=== PATIENT | female | born 1965 | race Caucasian/White ===

== ENCOUNTER 2020-06-28 13:16 | Outpatient (REF) | payer MEDICARE, SELFPAY ==
--- NOTE | 2020-06-28 | MM_ITS ---
EXAMINATION: MM SCREENING DIGITAL BREAST TOMOSYNTHESIS, BILATERAL CLINICAL INFORMATION: Screening. Asymptomatic. The lifetime risk of breast cancer based on the Tyrer-Cuzick Model is 15%. COMPARISON: Mammography: 10/21/2016, 02/21/2014 TECHNIQUE: Digital breast tomosynthesis is performed in both the craniocaudal and mediolateral oblique views along with computer-aided detection (CAD). Synthesized 2D images are generated from the tomosynthesis. FINDINGS: There are scattered areas of fibroglandular density (ACR BI-RADS breast composition Category b). Parenchymal pattern is similar to prior exams. There is no developing density or interval mass or architectural abnormality. Again, there is a biopsy clip marker 3:00 left breast and 2 biopsy clip markers 5:00 anterior right breast. There are some fine calcifications anterior 6:00 right breast again seen. The axilla and skin contours are unremarkable. There are no significant changes from prior studies. MM/MM tomosynthesis screening BI IMPRESSION: No significant changes from prior studies. ASSESSMENT: BI-RADS 2: Benign RECOMMENDATION: Routine annual mammography screening. This patient's information was entered into a reminder system with a target due date for their next mammogram.
== END 2020-06-28 13:17 | disposition home or self-care (01) ==
LOC: HO.MAMMO 13:16
PROVIDERS: Visit Provider Pediatrics
DX: Z12.31 Encounter for screening mammogram for malignant neoplasm of breast (principal)
CPT/HCPCS: 77063; 77067

== ENCOUNTER → 2020-12-03 12:45 | Outpatient (BNVA) | payer MEDICARE, OTHER, SELFPAY | PROVIDERS: PCP Pediatrics; Referring Provider Pediatrics; Visit Provider Surgery | DX: K43.2 Incisional hernia without obstruction or gangrene (principal) | CPT/HCPCS: 99202 ==

== ENCOUNTER 2020-12-25 05:56 | Day surgery (SDC) | payer MEDICARE, OTHER, SELFPAY ==
[2020-12-19 15:34] VITALS: BMI 35.2
--- NOTE | 2020-12-24 08:25 | HO.ANESPROP2 ---
Documented by User: Jeannette Mae 12/24/20 13:16 HPI - Anesthesia Eval Consult details Narrative: 55yo F for Incisional Hernia Repair, Poss Mesh Daily tramadol PMFSH Active Problems Active Problems: All Active Problems (Updated 12/03/20 @ 13:22 by Renaldo Weinberg MD) Incisional hernia (Acute) Past Medical History Medical History (Updated 12/24/20 @ 13:16 by Jeannette Mae) Heart burn HTN (hypertension) Incisional hernia Lumbar spondylolysis Raynaud disease Family History Family History Mother Lung cancer Maternal Aunt Breast cancer Maternal Uncle Breast cancer Maternal Grandfather Pancreatic cancer Surgical History Surgical History History of surgery for malignant neoplasm Social History Social History Alcohol intake: current Alcohol intake frequency: holidays/special occasions only Patient Tobacco Use Status: Never used Tobacco Use of substances other than those prescribed or required for medical reasons: No Are you DNR?: No Advance Directives: No Advance Directives Information Provided: No Recently lost weight without trying: No Nutrition Risks: No Nutritional Risk Patient : No FDLMP: 2 years ago Meds Allergies Allergy/AdvReac Type Severity Reaction Status Date / Time No Known Allergies Allergy Verified 12/03/20 12:56 Home Medications Medication Instructions Recorded Confirmed Last Taken Type amitriptyline 75 mg tablet 75 mg PO DAILY 12/03/20 12/03/20 Unknown History baclofen 10 mg tablet 10 mg PO TID 12/03/20 12/03/20 Unknown History cholecalciferol (vitamin D3) 50 50 mcg PO BID 12/03/20 12/03/20 Unknown History mcg (2,000 unit) capsule duloxetine 60 mg capsule,delayed 60 mg PO BID 12/03/20 12/03/20 Unknown History release hydroxychloroquine 200 mg tablet 200 mg PO DAILY 12/03/20 12/03/20 Unknown History ibuprofen 800 mg tablet 800 mg PO Q8H PRN 12/03/20 12/03/20 Unknown History lisinopril 20 1 tab PO DAILY 12/03/20 12/03/20 Unknown History mg-hydrochlorothiazide 25 mg tablet meloxicam 7.5 mg tablet 7.5 mg PO DAILY 12/03/20 12/03/20 Unknown History pregabalin 50 mg capsule 50 mg PO BID 12/03/20 12/03/20 Unknown History tramadol 50 mg tablet 50 mg PO Q6H PRN 12/03/20 12/03/20 Unknown History Exam Exam Date and Time: December 24, 2020 0825 Height,Weight and Vital Signs: Height 5 ft 3 in Weight 90.265 kg Assessment and Plan Assessment Anesthesia Assessment: Chart Reviewed Documented by User: He Faulkner MD 12/25/20 07:26 [facility] Past Medical History Medical History (Updated 12/24/20 @ 13:16 by Jeannette Mae) Heart burn HTN (hypertension) Incisional hernia Lumbar spondylolysis Raynaud disease Family History Family History Mother Lung cancer Maternal Aunt Breast cancer Maternal Uncle Breast cancer Maternal Grandfather Pancreatic cancer Surgical History Surgical History History of surgery for malignant neoplasm Social History Social History Alcohol intake: current Alcohol intake frequency: holidays/special occasions only Patient Tobacco Use Status: Never used Tobacco Use of substances other than those prescribed or required for medical reasons: No Are you DNR?: No Advance Directives: No Advance Directives Information Provided: No Recently lost weight without trying: No Nutrition Risks: No Nutritional Risk Patient : No FDLMP: 2 years ago Meds Allergies Allergy/AdvReac Type Severity Reaction Status Date / Time No Known Allergies Allergy Verified 12/03/20 12:56 Home Medications Medication Instructions Recorded Confirmed Last Taken Type amitriptyline 75 mg tablet 75 mg PO DAILY 12/03/20 12/03/20 Unknown History baclofen 10 mg tablet 10 mg PO TID 12/03/20 12/03/20 Unknown History cholecalciferol (vitamin D3) 50 50 mcg PO BID 12/03/20 12/03/20 Unknown History mcg (2,000 unit) capsule duloxetine 60 mg capsule,delayed 60 mg PO BID 12/03/20 12/03/20 Unknown History release hydroxychloroquine 200 mg tablet 200 mg PO DAILY 12/03/20 12/03/20 Unknown History ibuprofen 800 mg tablet 800 mg PO Q8H PRN 12/03/20 12/03/20 Unknown History lisinopril 20 1 tab PO DAILY 12/03/20 12/03/20 Unknown History mg-hydrochlorothiazide 25 mg tablet meloxicam 7.5 mg tablet 7.5 mg PO DAILY 12/03/20 12/03/20 Unknown History pregabalin 50 mg capsule 50 mg PO BID 12/03/20 12/03/20 Unknown History tramadol 50 mg tablet 50 mg PO Q6H PRN 12/03/20 12/03/20 Unknown History Exam Airway Mallampati Class: III TM Dist: >3cm Neck ROM: Full Loose/Missing/Broken Teeth: No Heart: RRR Assessment and Plan Assessment Anesthesia Assessment: Anesthesia Plan Discussed and Chart Reviewed Final Anesthetic Review NPO: Yes ASA Class: III Final Preanesthetic Review: No Changes in Pt Med Stat, Meds/Allgs Chart Reviewed, Consent Obtained/Reviewed and Anes Risks/Benef Reviewed Patient Risk: Intermediate Procedure Risk: Low Anesthetic Plan Anesthetic Plan: GA Disposition: Standard PACU
[2020-12-25] VITALS (11 sets, daily range): BP systolic 110–137; BP diastolic 47–80; PULSE 80–91; RESP 14–16; TEMP 36.1–36.6; O2SAT 96–100; BMI 35.7
[2020-12-25] MEDS: Lactated Ringers 1,000 ML 100 ML IVCONT (06:32)
--- NOTE | 2020-12-25 07:18 | MHC.SHP ---
Pre-Procedural Eval Section B Chief Complaint: incisional hernia without obstruction Allergies: Allergies Allergy/AdvReac Type Severity Reaction Status Date / Time No Known Allergies Allergy Verified 12/03/20 12:56 Plan I have reviewed the history and physical and performed a pertinent physical examination on my patient. No changes have occurred unless specified.
--- NOTE | 2020-12-25 08:17 | W.PM.OPN ---
Operative Note Operative Note Date of Service: 12/25/20 Narrative: Preop diagnosis: Incisional hernia Postop diagnosis: Incisional hernia Procedure: Repair of incisional hernia with Ventralex mesh Surgeon: Renaldo Weinberg MD No assistant center manager Patient is a 55-year-old female who has noticed a partially reducible mass on the area just above the umbilicus. She had undergone laparoscopic removal of her adrenal gland a year ago. Examination in the office showed appeared to be an incisional hernia on the port side above the umbilicus. This was partially reducible. It was difficult to clearly define the fascial defect because of her subcutaneous fat. In view of symptoms she wanted proceed with repair. She understood technique of repair with mesh. She was aware of the risks, benefits, and alternatives She was brought to the operating room and placed supine on table under general anesthesia via endotracheal tube. The abdomen was prepped and draped in the usual sterile fashion. A surgical time-out was done. The patient received cefazolin 2 g IV preoperatively. I infiltrated the planned line of incision using lidocaine 1%. I made the incision on the old incision above the umbilicus longitudinally using a blade 15. This was carried down through the full-thickness of the skin and subcutaneous fat with electrocautery until I was able to see the hernia sac. The hernia sac reduced easily. I was able to continue to dissect through the subcutaneous fat to define the fascia. I applied Deon clamps on the fascial edges. This allowed me to clearly visualize the fascial margins. There was note of some adherent omental fat on the superior aspect of the defect which we gently lysed using electrocautery. I examined the underside of fascial defect and it appeared we had good margins around the defect itself. We also observed for hemostasis. There were no adherent small bowel loops surrounding the defect. I measured the defect and this was about 3.2 cm in diameter. I therefore used a medium-sized Ventralex mesh. I positioned this under the fascial defect and flattened this. I secured the Prolene straps of the mesh to the fascial edge on both sides using Prolene 2 sutures. I trimmed both Prolene straps. I then closed the fascial defect with a running Maxon 1 stitch, incorporating part of the Prolene side of the mesh with the suture. I irrigated the subcutaneous layer. I then reapposed the subcutaneous layer with Dexon 3-0 interrupted sutures. Skin closure was achieved with Dexon 4-0 subcuticular running sutures. Surgeon dressings were applied. I infiltrated the area of the incision with Marcaine 0.5% for postop analgesia. The patient tolerated the procedure well. There were no complication noted. Initial and final counts of sponges and instruments were correct. Estimated blood loss was about 5 cc The patient is extubated without difficulty and transferred to the recovery room with stable vital signs.
--- NOTE | 2020-12-25 08:24 | PM.OP ---
Brief Operative Note Date of Service: 12/25/20 Pre-op diagnosis: Incisional hernia Post-op diagnosis: same Procedure: Repair of incisional hernia with mesh Implants: Mesh Surgeon: Renaldo Weinberg MD Anesthesia: GETA Was an Associate Engineer used for this Procedure?: No Estimated blood loss (mL): 5 Pathology: none sent Condition: stable Disposition: PACU
[2020-12-25] MEDS: fentaNYL citrate/PF 100 MCG/2 ML VIAL 25 MCG IVPUSH ×2 (09:02→09:14)
[2020-12-25] MEDS: oxyCODONE HCl Immed Release 5 MG TABLET 10 MG PO (09:08)
== END 2020-12-25 10:05 | disposition home or self-care (01) ==
PROVIDERS: PCP Pediatrics; Visit Provider Surgery
PROC: (CPT 49560; principal; 2020-12-25 07:30)
DX: K43.2 Incisional hernia without obstruction or gangrene (principal); I73.00 Raynaud's syndrome without gangrene; Z79.899 Other long term (current) drug therapy; Z87.891 Personal history of nicotine dependence
CPT/HCPCS: 49560; 49568; C1781; J0690; J1100; J2250; J2405; J3010

== ENCOUNTER → 2021-01-23 14:59 | Outpatient (BNVA) | payer MEDICARE, OTHER, SELFPAY | PROVIDERS: PCP Pediatrics; Referring Provider Pediatrics; Visit Provider Surgery | DX: Z48.815 Encounter for surgical aftercare following surgery on the digestive system (principal); Z87.19 Personal history of other diseases of the digestive system | CPT/HCPCS: 99212 ==

== ENCOUNTER 2022-05-07 08:24 | Outpatient (REF) | payer MEDICARE, OTHER, SELFPAY ==
--- NOTE | ~2022-05-07 | MM_ITS ---
EXAMINATION: BONE DENSITOMETRY CLINICAL INDICATION: Other risk factors. COMPARISON: This is the patient's baseline examination. TECHNIQUE: Using a [employer] DXA System (software version: 13.1) manufactured by [employer], dual-energy x-ray absorptiometry was performed of the lumbar spine and left hip. The images are of good technical quality. Summary results are attached. FINDINGS: AP SPINE L1-L2 (excluding L3 and L4): The data of L1-L4 has been changed to exclude the L3 and L4 vertebral bodies, because degenerative sclerosis at these levels may cause overestimation of lumbar spine density. BMD 1.143 g/cm2, Z-score 0.0, T-score -0.2, normal. LEFT FEMUR, NECK: BMD 0.919 g/cm2, Z-score -0.2, T-score -0.9, normal. LEFT FEMUR, TOTAL: BMD 0.982 g/cm2, Z-score 0.0, T-score -0.2, normal. IDENTIFIED RISK FACTORS: Rheumatoid arthritis, menopause. HISTORY OF FRACTURE: None listed. MEDICATIONS: Vitamin D. MM/XR DEXA axial skeleton IMPRESSION: 1. DIAGNOSIS: Normal bone density based on the lowest T-score value of -0.9 in the femoral neck applying World Health Organization criteria. 2. 10-YEAR FRACTURE RISK PREDICTION, FRAX: According to the guidelines, FRAX calculation should only be performed on patients in the osteopenia bone density category. Therefore, FRAX was not performed on this patient. 3. Treatment Recommendations: NOF guidelines recommend consideration for treatment in postmenopausal women and men age 50 and older presenting with the following: -A hip or vertebral (clinical or morphometric) fracture. -T-score less than or equal to -2.5 at the femoral neck or spine after appropriate evaluation to exclude secondary causes. -Low bone mass at the hip or spine and a 10-year fracture probability by FRAX of greater than or equal to 3% for hip fracture or greater than or equal to 20% for major osteoporotic fracture based on the [place] adapted WHO algorithm. 4. Other Recommendations: All treatment decisions require clinical judgment and consideration of individual patient factors, including patient preferences, comorbidities, previous drug use, risk factors not captured in the FRAX model (e.g. frailty, falls, vitamin D deficiency, increased bone turnover, interval significant decline in bone density) and possible under or overestimation of fracture risk by FRAX. FUTURE SCAN RECOMMENDATION: People with diagnosed cases of osteoporosis or at high risk for fracture should have regular bone mineral density tests. For patients eligible for Medicare, routine testing is allowed once every 2 years. The testing frequency can be increased to one year for patients who have rapidly progressing disease, those who are receiving or discontinuing medical therapy to restore bone mass, or have additional risk factors.
== END 2022-05-07 08:25 | disposition home or self-care (01) ==
LOC: HO.MAMMO 08:24
PROVIDERS: Visit Provider Pediatrics
DX: Z13.820 Encounter for screening for osteoporosis (principal); Z91.89 Other specified personal risk factors, not elsewhere classified; Z78.0 Asymptomatic menopausal state
CPT/HCPCS: 77080

== ENCOUNTER 2023-05-22 09:39 | Outpatient (REF) | payer MEDICARE, OTHER, SELFPAY ==
[2023-05-22 14:19] LABS: MANUAL DIFF FLAG NO
[2023-05-22 14:32] LABS: Basophils Percent Auto 0.4 % (0-2); Eosinophils Absolute Auto 0.2 X10*3/uL (0.0-0.4); Eosinophils Percent Auto 2.9 % (0-4); Hematocrit 40.8 % (37.0-47.0); Hemoglobin 13.2 g/dl (12.0-16.0); Imm Gran Abs Auto 0.02 X10*3/uL (0.00-0.03); Imm Gran Pct Auto 0.2 % (0.0-0.4); Lymphocytes Absolute Auto 2.4 X10*3/uL (1.2-4.9); Lymphocytes Percent Auto 28.3 % (20-40); Mean Corpuscular HGB Conc 32.4 g/dl (31.0-35.0); Mean Corpuscular Hemoglobin 28.7 pg (27.0-33.0); Mean Corpuscular Volume 88.7 fL (80.0-98.0); Mean Platelet Volume 12.1 fL (9.4-12.3); Monocytes Absolute Auto 0.7 X10*3/uL (0.1-1.2); Monocytes Percent Auto 8.1 % (2-11); Neutrophils Percent Auto 60.1 % (45-73); Platelet Count 270 X10*3/uL (160-400); Red Cell Distribution Width 12.5 % (11.0-16.0); White Blood Count 8.4 X10*3/uL (4.8-10.8)
[2023-05-22 14:38] LABS: INTERNATIONAL NORM RATIO 0.9 (0.9-1.1); Prothrombin Time 10.4 SEC (11.1-13.3)
[2023-05-22 14:44] LABS: Anion Gap 12 (12-20); Blood Urea Nitrogen 17 mg/dL (9-16); Calcium 9.7 mg/dL (8.4-10.2); Carbon Dioxide 27 mmol/L (22-29); Chloride 106 mmol/L (96-108); Estimated Glomerular Filt Rate > 60; Glucose Random 87 mg/dL (60-115); Sodium 141 mmol/L (135-145)
[2023-05-22 14:48] LABS: Partial Thromboplastin Time 32.9 SEC (26.0-36.4)
== END 2023-05-22 09:40 | disposition home or self-care (01) ==
LOC: HO.CHCLDS 09:39
PROVIDERS: Visit Provider Internal Medicine
DX: Z01.818 Encounter for other preprocedural examination (principal); I45.81 Long QT syndrome
CPT/HCPCS: 36415; 80048; 85025; 85610; 85730

== ENCOUNTER 2023-08-20 14:45 | Outpatient (REF) | payer MEDICARE, OTHER, SELFPAY | END 2023-08-20 14:46 | disposition home or self-care (01) | LOC: HO.CHCLNP 14:45 | PROVIDERS: Visit Provider Pediatrics | DX: Z01.419 Encounter for gynecological examination (general) (routine) without abnormal findings (principal) | CPT/HCPCS: 88142 ==

== ENCOUNTER 2023-12-28 16:07 | Outpatient (REF) | payer MEDICARE, OTHER, SELFPAY ==
[2023-12-28 17:32] LABS: MANUAL DIFF FLAG NO
[2023-12-28 17:43] LABS: Appearance Urine Cloudy; Color Urine Yellow; Glucose Urine UA Negative (Negative); Leukocyte Esterase Urine Large (3+) (Negative); Nitrite Urine Negative (Negative); PH 6.5 (5.0-9.0); Specific Gravity - Urine 1.015 (1.005-1.025); UMIC TRIGGER UACC YES; Urine Blood Moderate (2+) (Negative); Urine Ketones Negative (Negative); Urine Protein Negative (Neg-Trace)
[2023-12-28 17:45] LABS: Bacteria Urine 3+ (None Seen); RBC Urine >20 /HPF (0-2); Squamous Epithelial Cell Urine 0-2 /HPF (0-2); UACC Culture Trigger YES; WBC Urine >50 /HPF (0-5)
[2023-12-28 17:51] LABS: Basophils Percent Auto 0.4 % (0-2); Eosinophils Absolute Auto 0.2 X10*3/uL (0.0-0.4); Eosinophils Percent Auto 2.9 % (0-4); Hematocrit 39.3 % (37.0-47.0); Hemoglobin 12.7 g/dl (12.0-16.0); Imm Gran Abs Auto 0.02 X10*3/uL (0.00-0.03); Imm Gran Pct Auto 0.3 % (0.0-0.4); Lymphocytes Absolute Auto 2.2 X10*3/uL (1.2-4.9); Lymphocytes Percent Auto 28.2 % (20-40); Mean Corpuscular HGB Conc 32.3 g/dl (31.0-35.0); Mean Corpuscular Hemoglobin 28.5 pg (27.0-33.0); Mean Corpuscular Volume 88.3 fL (80.0-98.0); Mean Platelet Volume 11.5 fL (9.4-12.3); Monocytes Absolute Auto 0.7 X10*3/uL (0.1-1.2); Monocytes Percent Auto 8.5 % (2-11); Neutrophils Absolute Auto 4.7 x10*3/uL (2.0-8.3); Neutrophils Percent Auto 59.7 % (45-73); Platelet Count 257 X10*3/uL (160-400); Red Blood Count 4.45 X10*6/uL (4.20-5.50); White Blood Count 7.8 X10*3/uL (4.8-10.8)
[2023-12-28 18:14] LABS: Anion Gap 13 (12-20); Blood Urea Nitrogen 10 mg/dL (9-16); C Reactive Protein 0.74 mg/dL (< or = 0.50); Carbon Dioxide 29 mmol/L (22-29); Chloride 107 mmol/L (96-108); Estimated Glomerular Filt Rate > 60; Glucose Random 78 mg/dL (60-115); Potassium 3.6 mmol/L (3.3-5.1); Sodium 145 mmol/L (135-145)
[2023-12-28 18:32] LABS: TSH reflex Free T4 1.48 uIU/mL (0.32-4.0)
[2023-12-28 18:41] LABS: Erythrocyte Sedimentation Rate 5 MM/HR (0-20)
== END 2023-12-28 16:08 | disposition home or self-care (01) ==
LOC: HO.CHCLDS 16:07
PROVIDERS: Visit Provider Family Medicine
DX: R30.0 Dysuria (principal); R22.1 Localized swelling, mass and lump, neck; R22.2 Localized swelling, mass and lump, trunk; R53.83 Other fatigue
CPT/HCPCS: 36415; 80048; 81001; 84443; 85025; 85652; 86140; 87086; 87088; 87186

== ENCOUNTER 2024-01-04 09:54 | Outpatient (REF) | payer MEDICARE, OTHER, SELFPAY ==
--- NOTE | ~2024-01-04 | US_ITS ---
EXAMINATION: US SOFT TISSUE HEAD/NECK CLINICAL INFORMATION: 58-year-old female with left anterior neck mass. Question goiter versus thymoma. COMPARISON: None available. TECHNIQUE: Linear transducer grayscale and color Doppler examination of the area indicated by patient, left clavicular area. FINDINGS: Targeted ultrasound images were obtained by the muffler mechanic of the area of concern as indicated by the patient in the left clavicular region and demonstrated no discrete mass or fluid collection. Radiologist was not in attendance. Images were later provided for interpretation. US/US soft tiss head and/or neck IMPRESSION: No discrete mass or fluid collection identified in the area of concern as indicated by the patient in the left clavicular region. Decisions regarding further imaging, treatment or biopsy should be based on the clinical exam, as not all abnormalities are detectable on ultrasound studies.
== END 2024-01-04 09:55 | disposition home or self-care (01) ==
LOC: HO.HMGCX 09:54
PROVIDERS: PCP Pediatrics; Visit Provider Family Medicine
DX: R22.2 Localized swelling, mass and lump, trunk (principal)
CPT/HCPCS: 76536

== ENCOUNTER 2024-01-12 13:45 | Outpatient (REF) | payer MEDICARE, OTHER, SELFPAY ==
--- NOTE | ~2024-01-12 | CT_ITS ---
EXAMINATION: CT SOFT TISSUE NECK WITH CONTRAST CLINICAL INFORMATION: 58-year-old female with left neck swelling anteriorly concerning for thymoma versus other COMPARISON: None available. TECHNIQUE: Following the intravenous administration of 60 mL of Omnipaque 350 intravenous contrast, helical imaging was performed in the axial plane with generation of coronal and sagittal reformatted images. This CT examination was performed using dose optimization techniques as appropriate, variously including the following: *Automated exposure control *Adjustment of mA and/or kV according to patient size (this includes techniques or standardized protocols for targeted exams where dose is matched to indication/reason for exam; i.e. extremities or head) *Use of iterative reconstruction technique DLP: 278 mGy-cm FINDINGS: No suspicious enhancement. No abnormally enlarged neck lymph node or mass. The nasopharynx, oropharynx, hypopharynx, and laryngeal structures are unremarkable. The parotid, submandibular, and thyroid glands are unremarkable. The visualized orbits are unremarkable. The paranasal sinuses and mastoid air cells are clear. The visualized vasculature of the neck are unremarkable. The visualized portions of the brain are unremarkable. No acute osseous abnormality. No lytic or blastic osseous lesions. Multilevel degenerative changes of the visualized spine. Degenerative changes are seen at the bilateral sternoclavicular junctions, worse on the left. The visualized lungs are clear. CT/CT soft tissue neck w IV con IMPRESSION: Unremarkable CT neck soft tissue. No suspicious neck mass. Specifically, no evidence of thymoma as clinically questioned.
[2024-01-12] MEDS: iohexoL 350 MG/ML 75 ML INFUS..BTL 60 ML IV (15:17)
== END 2024-01-12 13:46 | disposition home or self-care (01) ==
LOC: HO.CT 13:45
PROVIDERS: Visit Provider Family Medicine
DX: R22.2 Localized swelling, mass and lump, trunk (principal)
CPT/HCPCS: 70491; Q9967

== ENCOUNTER 2024-11-15 11:39 | Outpatient (REF) | payer MEDICARE, OTHER, SELFPAY ==
--- NOTE | ~2024-11-15 | XR_ITS ---
EXAMINATION: XR HIP, RIGHT CLINICAL INFORMATION: right hip pain COMPARISON: None available. TECHNIQUE: Two views of the right hip. FINDINGS: No acute cortical disruption or malalignment. Mild sclerosis and the articular surface of the right acetabulum. Osteopenia versus osteoporosis. Metallic hardware in the upper sacrum lower lumbar spine no included in the [id number]. Degenerative changes in the symphysis pubis. XR/XR hip RT min 2V IMPRESSION: Mild osteoarthrosis, right hip. Electronically signed by: James Mendes MD 11/15/2024 12:05 PM EDT
--- OUTSIDE RECORDS SUMMARY | 2024-11-15 13:18 | XMS_ITS | Encounter Summary ---
Author Organization [facility] Address [address] [place] [id number] Care Team Providers Care Foundation Engineer Name Role Phone Gaviota Monsivais MD Unavailable [phone] Nuno Ramesh MD Unavailable Unavailable Martita De La O MD Unavailable [phone] Tommy Christianson MD Unavailable July Henley MD Primary Care Provider [phone] Encounter Details Date Type Department Care Team (Late st Contact Info) Description 06/23/2023 Scanned Document [facility] Neurosurgery [address] [phone] Social History Tobacco Use Types Packs/Day Years Used Date Smoking Tobacco: Former Cigarettes 978 2007 Smokeless Tobacco: Never Alcohol Use Standard Drinks/Week Comments Yes 2 (1 standard drink = 0.6 oz pur e alcohol) approx monthly AUDIT-C Answer Date Recorded Q1: How often do you have a drink containing alc ohol? Monthly or less 06/17/2023 Q2: How many drinks containi ng alcohol do you have on a typical day when you are drinking? 1 or 2 06/17/2023 Q3: How often do you have si x or more drinks on one occasion? Never 06/17/2023 PHQ-2 Answer Date Recorded PHQ-2 Total Score 0 06/17/2023 Comments No Sex and Gender Information Value Date Recorded Sex Assigned at Female 01/01/2023 1:21 PM EDT Legal Sex Female 5:52 PM EDT Gender Identity Female 01/01/2023 1:21 PM EDT Sexual Orientation Heterosexual (straight) 01/01 1:21 PM EDT documented as of this encounter Plan of Treatment Not on file documented as of this encounter Visit Diagnoses Not on filedocumented in this encounter Care Teams Foundation Engineer Relationship Specialty Start Date End Date July Henley MD [address] [place] [id number] PCP - General Internal Medicine 03/05/22 Gaviota Monsivais MD Consulting Provider Rheumatology 03/19/17 Nuno Ramesh MD Endocrinology 05/10/18 Martita De La O MD Consulting Provider Internal Medicine 04/04/19 Tommy Christianson MD [address] [place] [address] Physician Neurology 06/13/21 Dr. Aura Henley [address] [place] [address] Primary Care Provider Internal Medicine 01/09/21 documented as of this encounter
--- OUTSIDE RECORDS SUMMARY | 2024-11-15 13:18 | XMS_ITS | Encounter Summary ---
Author Organization [facility] Address [address] [place] [address] Care Team Providers Care Line Patrolman Name Role Phone Abbie Jeffery MD Unavailable [phone] Gaviota Monsivias MD Unavailable [phone] Pcp, No Primary Care Provider UnavailNuno García MD Unavailable Unavailable System, Provider Not In Primary Care Provider Un available Martita De La O MD Unavailable [phone] Tamiko Kent APRN Unavailable [phone] Pcp, No Primary Care Provider UnavailTommy Valladares MD Unavailable July Henley MD Primary Care Provider Reason for Visit * Reason Comments Medication Refill Encounter Details Date Type Department Care Team (Late st Contact Info) Description 03/25/2018 Refill [facility] [place] [address] Tommy Christianson MD [address] [place] [address] Muscle spasms of both lower extremities Social History Tobacco Use Types Packs/Day Years Used Date Smoking Tobacco: Former Comments:Quit about 6 years ago Alcohol Use Standard Drinks/Week Comments Yes 3 (1 standard drink = 0.6 oz pure alcohol) 2 glasses of wine or less weekly Comments No Sex and Gender Information Value Date Recorded Sex Assigned at Female 01/01/2023 1:21 PM EDT Legal Sex Female 5:52 PM EDT Gender Identity Female 01/01/2023 1:21 PM EDT Sexual Orientation Heterosexual (straight) 01/01 1:21 PM EDT documented as of this encounter Plan of Treatment Not on file documented as of this encounter Visit Diagnoses Diagnosis Muscle spasms of both lower extremities documented in this encounter Care Teams Line Patrolman Relationship Specialty Start Date End Date Pcp, No PCP - General General Medicine 11/05/17 11/03/18 System, Provider Not In PCP - General 11/04/18 01/08/21 Tamiko Kent APRN [address] [place] [address] PCP - MSSP Attributed 07/13/19 0 Pcp, No PCP - General General Medicine 06/13/21 03/04/22 July Henley MD [address] [place] [id number] PCP - General Internal Medicine 03/05/22 Abbie Jeffery MD Consulting Provider Physical Medicine and Rehabilitation 12/01/16 04/03/19 Gaviota Monsivais MD Consulting Provider Rheumatology 03/19/17 Nuno Ramesh MD Endocrinology 05/10/18 Martita De La O MD Consulting Provider Internal Medicine 04/04/19 Tommy Christianson MD [address] [place] [address] Physician Neurology 06/13/21 Dr. Aura Henley [address] [place] [address] Primary Care Provider Internal Medicine 01/09/21 documented as of this encounter
--- OUTSIDE RECORDS SUMMARY | 2024-11-15 13:18 | XMS_ITS | Encounter Summary ---
Author Organization [facility] Address [address] [place] [address] Care Team Providers Care Ammonia Box Operator Name Role Phone Abbie Jeffery MD Unavailable Gaviota Monsivais MD Unavailable [phone] Pcp, No Primary Care Provider UnavailNuno García MD Unavailable Unavailable System, Provider Not In Primary Care Provider Un available Martita De La O MD Unavailable [phone] Tamiko Kent APRN Unavailable [phone] Pcp, No Primary Care Provider UnavailTommy Valladares MD Unavailable July Henley MD Primary Care Provider Encounter Details Date Type Department Care Team (Late st Contact Info) Description 11/05/[address] [facility] [place] [address] Emanuel Bowie, JOSE [address] [id number] Social History Tobacco Use Types Packs/Day Years [...] on filedocumented in this encounter Care Teams Ammonia Box Operator Relationship Specialty Start Date End Date Pcp, No PCP - General General Medicine 11/05/17 11/03/18 System, Provider Not In PCP - General 11/04/18 01/08/21 Tamiko Kent APRN [address] [place] [address] PCP - MSSP Attributed 07/13/19 0 Pcp, No PCP - General General Medicine 06/13/21 03/04/22 July Henley MD [address] [place] [address] PCP - General Internal Medicine 03/05/22 Abbie Jeffery MD Consulting Provider Physical Medicine and Rehabilitation 12/01/16 04/03/19 Gaviota Monsivais MD Consulting Provider Rheumatology 03/19/17 Nuno Ramesh MD Endocrinology 05/10/18 Martita De La O MD Consulting Provider Internal Medicine 04/04/19 Tommy Christianson MD [address] [place] [address] Physician Neurology 06/13/21 Dr. Aura Henley [address] [place] [address] Primary Care Provider Internal Medicine 01/09/21 documented as of this encounter
--- OUTSIDE RECORDS SUMMARY | 2024-11-15 13:18 | XMS_ITS | Clinical Summary ---
Author Organization [facility] Address [address] [place] [address] Phone Care Team Providers Care Business Objects Name Role Phone July Henley MD Primary Care Provider [phone] Allergies No known active allergies Medications aluminum chloride (DRYSOL) 20 % external solution as needed. 10/03/19 17 Active cholecalciferol (VITAMIN D-3) 50 mcg (2,000 unit) capsule Take 1 capsule (2,000 Units total) by mouth 2 (two) times a day. 04/28/20 15 Active cyclobenzaprine (FLEXERIL) 10 mg tablet Take 1 tablet (10 mg total) by mouth. 10/27/19 24 Active diclofenac (VOLTAREN) 1 % topical gel Apply 1 g topically 2 times daily as needed. 10/27/19 24 Active ibuprofen (ADVIL,MOTRIN) 800 mg tablet Take 1 tablet (800 mg total) by mouth 2 times daily as needed. 02/05/20 24 Active tacrolimus (PROTOPIC) 0.1 % ointment APPLY TOPICALLY 2 TIMES A DAY NEEDED 02/11/20 22 Active traZODone (DESYREL) 50 mg tablet Take 1 tablet (50 mg total) by mouth. Active DULoxetine (CYMBALTA) [address] capsule Take 1 capsule (60 mg total) by mouth 2 (two) times a day. 60 each 11 09/07/19 25 026 Active lidocaine (LIDODERM) 5 % patch Apply 1 patch topically 1 (one) time each day. 30 patch 3 09/07/19 25 026 Active amLODIPine (Norvasc) 2.5 mg tablet Take 1 tablet (2.5 mg total) by mouth 1 (one) time each day. 30 each 09/07/19 25 026 Active traMADoL (ULTRAM) 50 mg tabletIndications :Other intervertebral disc degeneration, lumbar region without mention of lumbar back pain or lower extremity pain,Other intervertebral disc degeneration, lumbosacral region without mention of lumbar back pain or lower extremity pain Take 1 tablet (50 mg total) by mouth every 6 (six) hours if needed for severe pain. Max Daily Amount: 200 mg 120 tablet 3 11/12/19 25 Active traMADoL (ULTRAM) 50 mg tabletIndications :Other intervertebral disc degeneration, lumbar region without mention of lumbar back pain or lower extremity pain,Other intervertebral disc degeneration, lumbosacral region without mention of lumbar back pain or lower extremity pain Take 1 tablet (50 mg total) by mouth every 6 (six) hours if needed for severe pain. Max Daily Amount: 200 mg 120 tablet 10/04/19 25 025 Discontinued Active Problems Problem Noted Date Diagnosed Date Low back pain with right-sided sciatica 09/13/19 17 Bulge of lumbar disc without myelopathy 04/01/20 16 DDD (degenerative disc disease), lumbosacral 01/2016 Elevated aldolase level 08/13/2015 Muscle pain 08/13/2015 Lumbago 07/03/2015 Paresthesia of both lower extremities 07/03/2015 Irritable bowel syndrome with diarrhea 5 Murmur, cardiac 06/07/2015 Nonintractable migraine 06/07/2015 Encounters Date Type Department Care Team Description 09/07/2024 10:00 AM EST Office Visit Rheumatology - [facility] [address] [place] [address] Gaviota Monsivais MD Dry eyes, bilateral (Primary Dx); Anemia of chronic disease; Fibromyalgia; H/O Raynaud's syndrome; Undifferentiated connective tissue disease (CMS/HCC V24) from Last 3 Months Surgical History Surgery Date Site/Laterality Comments BREAST BIOPSY 2000 Right PROCEDURE:BREAST BIOPSY;COMMENT:benign LUMBAR EPIDURAL INJECTION 09/08/2016 Bilateral PROCEDURE:LUMBAR EPIDURAL INJECTION;COMMENT:Procedure: INJECTION ANESTHETIC AGENT LUMBAR; Surgeon: Abbie Jeffery MD; Location: [facility]; Service: Rehab Medicine; Laterality: Bilateral; LUMBAR EPIDURAL INJECTION 05/05/2016 N/A PROCEDURE:LUMBAR EPIDURAL INJECTION;COMMENT:Procedure: INJECTION STEROID LUMBAR EPIDURAL-caudal; Surgeon: Abbie Jeffery MD; Location: [facility]; Service: Rehab Medicine; Laterality: N/A; Medical History Medical History Date Comments IBS (irritable bowel syndrome) D X:IBS (irritable bowel syndrome) Migraine DX:Migraine Hypertension DX:Hypertension Overweight DX:Overweight Renal stone DX:Renal stone Family History Medical History Relation Name Comments Multiple sclerosis Brother Diabetes Father Cancer Maternal Grandfather pancrea tic cancer Cancer Maternal Grandmother breast cancer Kidney disease Maternal Grandmother Cancer Mother lung cancer Multiple sclerosis Mother Cancer Mother's Sister colon cancer Heart disease Son Relation Name Status Comments Brother Father Maternal Grandfather Maternal Grandmother Mother Mother's Sister Son Social History Tobacco Use Types Packs/Day Years Used Date Smoking Tobacco: Former Cigarettes Q uit: 08/01/2014 Smokeless Tobacco: Never Alcohol Use Standard Drinks/Week Comments Yes 0 (1 standard drink = 0.6 oz pur e alcohol) Comments Unknown Sex and Gender Information Value Date Recorded Sex Assigned at Not on file Legal Sex Female 8:47 PM EST Gender Identity Not on file Sexual Orientation Not on file Obstetrics History Last Filed Vital Signs Vital Sign Reading Time Taken Comments Blood Pressure 106/58 09/07/2024 9:55 AM EST Pulse 76 09/07/2024 9:55 AM EST Temperature - - Respiratory Rate - - Oxygen Saturation 98% 09/07/2024 9:55 AM EST Inhaled Oxygen Concentration - - Weight 78.9 kg (174 lb) 09/07/2024 9:55 AM EST Height 160 cm (5' 3 ) 09/07/2024 9:55 AM EST Body Mass Index 30.82 09/07/2024 9:55 AM EST Plan of Treatment Upcoming Encounters Date Type Department Care Team (Late st Contact Info) Description 05/02/2025 10:00 AM EDT Office Visit Rheumatology - [facility] [address] [place] [address] Gaviota Monsivais MD [address] [place] [address], [place] [address] Health Maintenance Due Date Last Done Comments COVID-19 Vaccine (#1) 1970 DTaP,Tdap,and Td Vaccines (1 - Tdap) 1984 Hepatitis B Vaccines (2 of 3 - 19+ 3-dose series) 03/15/2015 02/15/2015 Pneumococcal Vaccine: 50+ Years (1 of 1 - PCV) 10/03/2015 Zoster Vaccines (1 of 2) 10/03/2015 HIV Screening 06/14/2022 Lung Cancer Screening (Low Dose CT) 06/14/2022 Medicare Annual Wellness Visit 06/14/2022 Social Influencers of Health Screening 06/14/2022 Breast Cancer Screening 05/07/2024 05/07/2022 Depression Screening 01/28/2025 01/29/2024 Influenza Vaccine (Season Ended) 2025 04/06/2013, 03/31/2012 Hypertension/CHF/CAD Annual BMP Blood Test 09/21/2025 09/21/2024, 12/28/2023, 06/03/2023 Cervical Cancer Screening: P ap Smear 08/20/2026 08/20/2023, 08/20/2023 Colorectal Cancer Screening: FIT-DNA (Cologuard) 09/12/2026 09/13/2023 Cholesterol Screening (Lipid Panel) 04/29/2027 04/29/2022, 03/08/2020 RSV Immunization Adult Patients (1 - 1-dose 75+ series) 2040 Hepatitis C Screening Completed 06/05/2015 HIB Vaccines Aged Out No longer eligi ble based on patient's age to complete this topic HPV Vaccines Aged Out No longer eligi ble based on patient's age to complete this topic Hepatitis A Vaccines Aged Out No long er eligible based on patient's age to complete this topic IPV Vaccines Aged Out No longer eligi ble based on patient's age to complete this topic MMR Vaccines Aged Out No longer eligi ble based on patient's age to complete this topic Meningococcal ACWY Vaccine Aged Out N o longer eligible based on patient's age to complete this topic Meningococcal B Vaccine Aged Out No l onger eligible based on patient's age to complete this topic Pneumococcal Vaccine: Pediatrics (0 to 5 Years) and At-Risk Patients (6 to 64 Years) Aged Out No longer eligible b ased on patient's age to complete this topic RSV Immunization Patients Under 20 months Aged Out No longer eligible b ased on patient's age to complete this topic Varicella Vaccines Aged Out No longer eligible based on patient's age to complete this topic Procedures Procedure Name Priority Date/Time Associated Diagnosis Comments CBC WITH AUTO DIFFERENTIAL Routine 09/21/2024 10:19 AM EDT Dry eyes, bilateral Anemia of chronic disease SJOGRENS ANTIBODIES, SSA AND SSB Routine 09/21/2024 10:19 AM EDT Dry eyes, bilateral COMPREHENSIVE METABOLIC PANEL Routine 09/21/2024 10:19 AM EDT Dry eyes, bilateral C-REACTIVE PROTEIN Routine 09/21/2024 10 :19 AM EDT Dry eyes, bilateral SEDIMENTATION RATE Routine 09/21/2024 10 :19 AM EDT Dry eyes, bilateral CBC AND DIFFERENTIAL Routine 09/21/2024 10:19 AM EDT Dry eyes, bilateral Anemia of chronic disease HM PAP SMEAR Routine 08/20/2023 LIPID PANEL Routine 03/08/2020 HM HEPATITIS C SCREENING Routine 06/05/2015 from Last 3 Months or Most Recently Relevant to Health Maintenance Results * Sjogrens antibodies, SSA and SSB (09/21/2024 10:19 AM EDT) Sjogren's (SS-A) Ab <1.0 NEG <1.0 NEG Playto Sjogren's (SS-B) Ab <1.0 NEG <1.0 NEG Playto Blood Venous blood specimen / Unknown 09/21/2024 10:19 AM EDT 09/21/2024 10:20 AM EDT [facility] (JESSICA) - 09/22/2024 3:56 PM EDT FASTING:YES FASTING: YES Gaviota Monsivais MD LAB BLOOD ORDERABLES Final Res ult [facility] [facility] [address] [place] [address] * CBC auto differential (09/21/2024 10:19 AM EDT) White Blood Cell Count 6.5 3.8 - 10.8 Thousand/u L [facility] RBC Count 4.55 3.80 - 5.10 Million/uL [facility] Hemoglobin 12.9 11.7 - 15.5 g/dL [facility] Hematocrit 40.0 35.0 - 45.0 % [facility] MCV 87.9 80.0 - 100.0 fL [facility] MCH 28.4 27.0 - 33.0 pg [facility] MCHC 32.3 32.0 - 36.0 g/dL [facility] Comment: For adults, a slight decrease in the calculated MCHC value (in the range of 30 to 32 g/dL) is most likely not clinically significant; however, it should be interpreted with caution in correlation with other red cell parameters and the patient's clinical condition. RDW 12.8 11.0 - 15.0 % [facility] Platelet Count 241 140 - 400 Thousand/u L [facility] MPV 12.1 7.5 - 12.5 fL [facility] Absolute Neutrophil 3,341 1,500 - 7,800 cells/uL [facility] Absolute Lymphocytes 2,379 850 - 3,900 cells/uL [facility] Absolute Monocytes 546 200 - 950 cells/uL [facility] Absolute Eosinophils 202 15 - 500 cells/uL [facility] Absolute Basophils 33 0 - 200 cells/uL [facility] Neutrophils 51.4 % [facility] Lymphocytes 36.6 % [facility] Monocytes 8.4 % [facility] Eosinophils 3.1 % [facility] Basophils 0.5 % [facility] Blood Venous blood specimen / Unknown 09/21/2024 10:19 AM EDT 09/21/2024 10:20 AM EDT Narrative [facility] (JESSICA) - 09/22/2024 3:56 PM EDT FASTING:YES FASTING: YES Gaviota Monsivais MD LAB BLOOD ORDERABLES Final Res ult Performing Organization Address City/[facility]/ZIP Co de Phone Number [facility]FL[facility] (JESSICA) [facility] [address] [place] [phone] * Sedimentation rate (09/21/2024 10:19 AM EDT) Sedimentation Rate Modified Westergren 2 < OR = 30 mm/h [facility] Blood Venous blood specimen / Unknown 09/21/2024 10:19 AM EDT 09/21/2024 10:20 AM EDT Narrative [facility] (JESSICA) - 09/22/2024 3:56 PM EDT FASTING:YES FASTING: YES Gaviota Monsivais MD LAB BLOOD ORDERABLES Final Res ult Performing Organization Address City/[facility]/ZIP Co de Phone Number [facility] ([facility]ESSICA[facility] [address] [place] [phone] * C-reactive protein (09/21/2024 10:19 AM EDT) C-Reactive Protein <3.0 <8.0 mg/L [facility] Blood Venous blood specimen / Unknown 09/21/2024 10:19 AM EDT 09/21/2024 10:20 AM EDT Narrative [facility] (JESSICA) - 09/22/2024 3:56 PM EDT FASTING:YES FASTING: YES Gaviota Monsivais MD LAB BLOOD ORDERABLES Final Res ult [facility] (JESSICA) [facility] [address] [place] [address] * Comprehensive metabolic panel (09/21/2024 10:19 AM EDT) Glucose 96 65 - 99 mg/dL [facility] Comment: ? Fasting reference interval Urea Nitrogen (BUN) 15 7 - 25 mg/dL [facility] Creatinine 0.67 0.50 - 1.03 mg/dL [facility] eGFR 101 > OR = 60 mL/min/1 .73m2 [facility] BUN/Creatinine Ratio SEE NOTE: (calc) [facility] Comment: ?? Not Reported: BUN and Creatinine are within ?? reference range. ? Sodium 138 135 - 146 mmol/L [facility] Potassium 4.4 3.5 - 5.3 mmol/L [facility] Chloride 103 98 - 110 mmol/L [facility] Carbon Dioxide 27 20 - 32 mmol/L [facility] Calcium 9.7 8.6 - 10.4 mg/dL [facility] Total Protein 6.7 6.1 - 8.1 g/dL [facility] Albumin 4.6 3.6 - 5.1 g/dL [facility] Globulin 2.1 1.9 - 3.7 g/dL (calc) [facility] Albumin/Globulin Ratio 2.2 1.0 - 2.5 (calc) [facility] Bilirubin Total 0.4 0.2 - 1.2 mg/dL [facility] Alkaline Phosphatase 59 37 - 153 U/L [facility] Aspartate aminotransferase??(A ST) 18 10 - 35 U/L [facility] Alanine Aminotransferase (ALT) 17 6 - 29 U/L [facility] Blood Venous blood specimen / Unknown 09/21/2024 10:19 AM EDT 09/21/2024 10:20 AM EDT Narrative [facility] (JESSICA) - 09/22/2024 3:56 PM EDT FASTING:YES FASTING: YES Gaviota Monsivais MD LAB BLOOD ORDERABLES Final Res ult [facility] (JESSICA) [facility] [address] [place] [phone] * Pap Smear (08/20/2023) Pap smear no interpreta tion,abstr acted Historical Provider HEALTH MAINTENANCE Final Result * Lipid panel (03/08/2020) LDL/HDL Ratio 0 Comment:no interpretation Triglycerides 0 mg/dL Comment:no interpretation Cholesterol 0 mg/dL Comment:no interpretation HDL 0 mg/dL Comment:no interpretation LDL Cholesterol 0 mg/dL Comment:no interpretation Blood Venous blood specimen / Unknown Historical Provider LAB BLOOD ORDERABLES Fang l Result * Hepatitis C Screening (06/05/2015) Hepatitis C Screening abstracted Historical Provider HEALTH MAINTENANCE Final Result from Last 3 Months or Most Recently Relevant to Health Maintenance Insurance MEDICARE Care Teams Business Objects Relationship Specialty Start Date End Date July Henley MD [address] [place] [phone] PCP - General Pediatrics 08/20/15
--- OUTSIDE RECORDS SUMMARY | 2024-11-15 13:18 | XMS_ITS | Encounter Summary ---
Author Organization [employer] Address [address] [facility] [address] [place] [address] Care Team Providers Care Horse Racer Name Role Phone July Henley MD Primary Care Provider [phone] Encounter Details Date Type Department Care Team ([facility] st Contact Info) Description 08/12/2022 Telephone [facility] CH[facility] MED & PEDS [address] [place] [address] July Henley MD [address] [place] [address] Social History Tobacco Use Types Packs/Day Years Used Date Smoking Tobacco: Never Assessed Comments Unknown Sex and Gender Information Value Date Recorded Sex Assigned at Female 05/12/2022 10:17 AM EDT Legal Sex Female 10:17 AM EDT Gender Identity Female 05/12/2022 10:17 AM EDT Sexual Orientation Straight 05/12/2022 10 :17 AM EDT documented as of this encounter Plan of Treatment Not on file documented as of this encounter Visit Diagnoses Not on filedocumented in this encounter Care Teams Horse Racer Relationship Specialty Start Date End Date July Henley MD [address] [place] [address] PCP - General Family Medicine 03/30/13 documented as of this encounter
--- OUTSIDE RECORDS SUMMARY | 2024-11-15 13:18 | XMS_ITS | Encounter Summary ---
Author Organization [employer] Address [address] [facility] [address] [place] [address] Care Team Providers Care Traffic Analyst Name Role Phone July Henley MD Primary Care Provider [phone] Reason for Visit * Reason Onset Date Comments Med Refill 12/28/2023 Encounter Details Date Type Department Care Team ([facility] st Contact Info) Description 12/28/2023 Refill [facility] CHC MED & PEDS [address] [place], [place] [phone] July Henley MD [address] [place] [address] Social History Tobacco Use Types Packs/Day Years Used Date Smoking Tobacco: Never Passive Smoke Exposure: Never Smokeless Tobacco: Never Housing Stability Answer Date Recorded What is your housing situation today? I have yandel juarez 05/04/[address] you li ve. Do you have problems with any of the following? None of the above 05/04/2023 Food Insecurity Answer Date Recorded Within the past 12 months, y ou worried that your food would run out before you got money to buy more: Never True 05/04/2023 Within the past 12 months,th e food you bought just didn't last and you didn't have enough money to get more: Never True Transportation Answer Date Recorded In the past 12 months, has l ack of transportation kept you from medical appts, meetings, work or from getting things needed for daily living? No 05/04/2023 Utilities Answer Date Recorded In the past 12 months, has t he electric, gas, oil or water company threatened to shut off services in your home? No 05/04/2023 Comments Unknown Sex and Gender Information Value [...] on filedocumented in this encounter Care Teams Traffic Analyst Relationship Specialty Start Date End Date July Henley MD [address] [place] [address] PCP - General Family Medicine 03/30/13 documented as of this encounter
--- OUTSIDE RECORDS SUMMARY | 2024-11-15 13:18 | XMS_ITS | Encounter Summary ---
Author Organization [employer] Address [address] [facility] [address] [place] [address] Care Team Providers Care Base Filler Operator Name Role Phone July Henely MD Primary Care Provider [phone] Reason for Visit * Reason Comments Med Refill Encounter Details Date Type Department Care Team ([facility] Contact Info) Description 05/10/2023 Refill [facility] CHC MED & PEDS [address] [place], [place] [phone] July Henley MD [address] [place] [address] Social History Tobacco Use Types Packs/Day Years Used Date Smoking Tobacco: Never Assessed Housing Stability Answer Date Recorded What is [...] on filedocumented in this encounter Care Teams Base Filler Operator Relationship Specialty Start Date End Date July Henley MD [address] [place] [address] PCP - General Family Medicine 03/30/13 documented as of this encounter
--- OUTSIDE RECORDS SUMMARY | 2024-11-15 13:18 | XMS_ITS | Encounter Summary ---
Author Organization [facility] Address [address] [place] [address] Care Team Providers Care Salt Operator Name Role Phone Abbie Jeffery MD Unavailable [phone] Pcp, No Primary Care Provider UnavailGaviota Post MD Unavailable [phone] Pcp, No Primary Care Provider Unavailabl Nuno Hernandez MD Unavailable Unavailable System, Provider Not In Primary Care Provider Un available Martita De La O MD Unavailable [phone] Tamiko Kent APRN Unavailable Pcp, No Primary Care Provider Unavailabl Tommy Carolina MD Unavailable July Henley MD Primary Care Provider Encounter Details Date Type Department Care Team (Late st Contact Info) Description 11/03/2017 Scanned Document [facility] [address] [place] [address] Bryn Baird MD [address] [place] [address] [address] [place] [address] Social History Tobacco Use Types Packs/Day Years Used Date Smoking Tobacco: Former Smokeless Tobacco: Former Comments:Quit about 6 years ago Alcohol Use Standard Drinks/Week Comments Yes 0 (1 standard drink = 0.6 oz pure [...] on filedocumented in this encounter Care Teams Salt Operator Relationship Specialty Start Date End Date Pcp, No PCP - General General Medicine 12/01/16 11/04/17 Pcp, No PCP - General General Medicine 11/05/17 11/03/18 System, Provider Not In PCP - General 11/04/18 01/08/21 Tamiko Kent, QUALITY ASSURANCE SUPERVISOR FINAL [address] [place] [address] PCP - MSSP Attributed 07/13/19 0 Pcp, No PCP - General General Medicine 06/13/21 03/04/22 July Henley MD [address] [place] [address] PCP - General Internal Medicine 03/05/22 Abbie Jeffery MD Consulting Provider Physical Medicine and Rehabilitation 12/01/16 04/03/19 Gaviota Monsivais MD Consulting Provider Rheumatology 03/19/17 Nuno Ramesh MD Endocrinology 05/10/18 Martita De La O MD Consulting Provider Internal Medicine 04/04/19 Tommy Christianson MD [address] [place] [address] Physician Neurology 06/13/21 Dr. Aura Henley [address] [place] [address] Primary Care Provider Internal Medicine 01/09/21 documented as of this encounter
--- OUTSIDE RECORDS SUMMARY | 2024-11-15 13:18 | XMS_ITS | Encounter Summary ---
Author Organization [facility] Address [address] [place] [address] Care Team Providers Care Microfilm Processor Name Role Phone Abbie Jeffery MD Unavailable [phone] Gaviota Monsivais MD Unavailable [phone] Pcp, No Primary Care Provider UnavailNuno García MD Unavailable Unavailable System, Provider Not In Primary Care Provider Un available Martita De La O MD Unavailable [phone] Tamiko Kent APRN Unavailable [phone] Pcp, No Primary Care Provider UnavailTommy Valladares MD Unavailable [phone] July Henley MD Primary Care Provider Encounter Details Date Type Department Care Team (Late st Contact Info) Description 05/31/2018 Scanned Document [facility] [place] [address] Lyle Pennington APRN [address] [place] [address] Social History Tobacco Use Types Packs/Day Years Used Date Smoking Tobacco: Former Smokeless Tobacco: Never Comments:Quit about 6 years ago Alcohol Use [...] on filedocumented in this encounter Care Teams Microfilm Processor Relationship Specialty Start Date End Date Pcp, No PCP - General General Medicine 11/05/17 11/03/18 System, Provider Not In PCP - General 11/04/18 01/08/21 Tamiko Kent APRN [address] [place] [address] PCP - MSSP Attributed 07/13/19 0 Pcp, No PCP - General General Medicine 06/13/21 03/04/22 July Henley MD [address] [place] [address] PCP - General Internal Medicine 03/05/22 Abbie Jeffery MD Consulting Provider Physical Medicine and Rehabilitation 12/01/16 04/03/19 Gaviota Monsivais MD Consulting Provider Rheumatology 03/19/17 Nuno Ramesh MD Endocrinology 05/10/18 Martita De La O MD Consulting Provider Internal Medicine 04/04/19 Tommy Christianson MD [address] [place] [address] Physician Neurology 06/13/21 Dr. Aura Henley [address] [place] [address] Primary Care Provider Internal Medicine 01/09/21 documented as of this encounter
--- OUTSIDE RECORDS SUMMARY | 2024-11-15 13:18 | XMS_ITS | Encounter Summary ---
Author Organization [facility] Address [address] [place] [address] Care Team Providers Care City Manager Name Role Phone Gaviota Monsivais MD Unavailable [phone] Nuno Ramesh MD Unavailable Unavailable Martita De La O MD Unavailable [phone] Tommy Christianson MD Unavailable [phone] July Henley MD Primary Care Provider [phone] Encounter Details Date Type Department Care Team (Late st Contact Info) Description 07/22/2023 Scanned Document [facility] Neurosurgery [address] [phone] Social History Tobacco Use Types Packs/Day Years [...] on filedocumented in this encounter Care Teams City Manager Relationship Specialty Start Date End Date July Henley MD [address] [place] [address] PCP - General Internal Medicine 03/05/22 Gaviota Monsivais MD Consulting Provider Rheumatology 03/19/17 Nuno Ramesh MD Endocrinology 05/10/18 Martita De La O MD Consulting Provider Internal Medicine 04/04/19 Tommy Christianson MD [address] [place] [address] Physician Neurology 06/13/21 Dr. Aura Henley [address] [place] [address] Primary Care Provider Internal Medicine 01/09/21 documented as of this encounter
--- OUTSIDE RECORDS SUMMARY | 2024-11-15 13:18 | XMS_ITS | Clinical Summary ---
Author Organization [facility] Address [address] [place] [address] Care Team Providers Care Postdoctoral Scientist Name Role Phone July Henley MD Primary Care Provider [phone] Allergies No known active allergies Medications Medication Sig Dispensed Refills Start Date End Date Status [facility] VITAMIN D 2000 UNITS CAPS Take 1 capsule by mouth 2 (two) times a day. 11 04/28/2015 Active lisinopril-hydrochl orothiazide (PRINZIDE,ZESTORETI C) tablet 20-25 mg 11 04/28/2015 Active aluminum chloride (DRYSOL) 20 % external solution as needed. 0 2016 Active amLODIPine (NORVASC) tablet 5 mgIndications:H/O Raynaud's syndrome Take 1 tablet (5 mg total) by mouth daily. 30 tablet 4 04/12/2021 Active lidocaine (LIDODERM) 5 % Place 1 patch onto the skin. 0 06/25/2021 Active tacrolimus (PROTOPIC) 0.1 % ointment APPLY TOPICALLY 2 TIMES A DAY NEEDED 0 02/10/2022 Active DULoxetine (CYMBALTA) DR capsule 60 mgIndications:DDD (degenerative disc disease), lumbosacral,Fibromy algia,Arthralgia of both hands TAKE 1 CAPSULE BY MOUTH 2 TIMES A DAY. 180 capsule 2 09/29/2022 Active Diclofenac Sodium 1 % GEL Apply 1 g topically 2 (two) times a day as needed. 100 g 2 10/27/2023 Active traZODone (DESYREL) 50 MG tablet Take 1 tablet (50 mg total) by mouth every night at bedtime. 0 Active ibuprofen 800 MG tablet Take 1 tablet (800 mg total) by mouth 2 (two) times a day as needed for pain. 30 tablet 3 02/05/2024 Active cyclobenzaprine (FLEXERIL) 10 MG tablet TAKE 1 TABLET BY MOUTH EVERY EVENING AT BEDTIME NEEDED FOR MUSCLE SPASMS 30 tablet 3 02/29/2024 Active traMADol (ULTRAM) 50 MG tabletIndications:D DD (degenerative disc disease), lumbosacral,Bulge of lumbar disc without myelopathy,Lumbar radiculitis,Fibromy algia,Arthralgia of both hands TAKE 1 TABLET BY MOUTH EVERY 6 HOURS NEEDED FOR PAIN FOR UP TO 30 DAYS. 120 tablet 0 04/18/2024 Active Active Problems Problem Noted Date Diagnosed Date Low back pain with right-sided sciatica 09/13/19 17 Low back pain with left-sided sciatica 7 Lumbar facet arthropathy 08/12/2016 Bulge of lumbar disc without myelopathy 04/01/20 16 Lumbar radiculitis 04/01/2016 DDD (degenerative disc disease), lumbosacral 01/2016 Elevated aldolase level 08/13/2015 Muscle pain 08/13/2015 Paresthesia of both lower extremities 07/03/2015 Lumbago 07/03/2015 Irritable bowel syndrome with diarrhea 5 Nonintractable migraine 06/07/2015 Murmur, cardiac 06/07/2015 Resolved Problems Problem Noted Date Diagnosed Date Resolved Date Elevated CK 06/07/2015 12/18/2015 Elbow pain 06/07/2015 12/18/2015 Family History Medical History Relation Name Comments Multiple sclerosis Brother Diabetes Father Cancer Maternal Aunt colon cancer Cancer Maternal Grandfather pancrea tic cancer Cancer Maternal Grandmother breast cancer Kidney disease Maternal Grandmother Cancer Mother lung cancer Multiple sclerosis Mother Heart disease Son Relation Name Status Comments Brother Father Maternal Aunt Maternal Grandfather Maternal Grandmother Mother Son Social History Tobacco Use Types Packs/Day Years Used Date Smoking Tobacco: Former Cigarettes Q uit: 08/01/2014 Smokeless Tobacco: Never Tobacco Cessation:Counseling Given: Not Answered Alcohol Use Standard Drinks/Week Comments Yes 0 (1 standard drink = 0.6 oz pur e alcohol) RARE Sex and Gender Information Value Date Recorded Sex Assigned at Female 06/11/2018 10:28 AM EST Gender Identity Not on file Sexual Orientation Not on file Job Start Date Occupation Industry Not on file Not on file Not on file Last Filed Vital Signs Vital Sign Reading Time Taken Comments Blood Pressure 118/70 02/05/2024 8:05 AM EDT Pulse 64 02/05/2024 8:05 AM EDT Temperature 36.5 ??C (97.7 ??F) 06/17/2018 8:57 AM ES T Respiratory Rate 18 10/11/2021 9:32 AM EDT Oxygen Saturation 98% 02/05/2024 8:05 AM EDT Inhaled Oxygen Concentration - - Weight 78.5 kg (173 lb) 02/05/2024 8:05 AM EDT Height 161.3 cm (5' 3.5 ) 02/05/2024 8:05 AM EDT Body Mass Index 30.16 02/05/2024 8:05 AM EDT Plan of Treatment Health Maintenance Due Date Last Done Comments COVID-19 Vaccine (#1) 1970 Pneumococcal Vaccine (1 of 2 - PCV) 10/03/1971 Depression Screening 1977 BMI Counseling 10/03/1983 Preventative Health Evaluation 10/03/1983 DTap / Tdap / Td (1 - Tdap) 1984 Shingrix-Zoster Vaccine (1 of 2) 1984 Cervical Cancer Screening (P ap Smear) 1986 Colon Cancer Screening (Colonoscopy) 2010 Hepatitis B Vaccines (2 of 3 - 19+ 3-dose series) 03/15/2015 02/15/2015 Breast Cancer Screening (Mammogram) 10/03/2015 Influenza Vaccine (#1) 2024 Hepatitis C Screening Completed 06/05/2015 RSV Ped < 20 months Aged Out No longe r eligible based on patient's age to complete this topic Care Teams Postdoctoral Scientist Relationship Specialty Start Date End Date July Henley MD [address] [place] [address] PCP - General Pediatrics 08/20/15
--- OUTSIDE RECORDS SUMMARY | 2024-11-15 13:19 | XMS_ITS | Encounter Summary ---
Author Organization [facility] Address [address] [place] [address] Care Team Providers Care Grounds Manager Name Role Phone Abbie Jeffery MD Unavailable Gaviota Monsivais MD Unavailable [phone] Pcp, No Primary Care Provider UnavailNuno García MD Unavailable Unavailable System, Provider Not In Primary Care Provider Un available Martita De La O MD Unavailable [phone] Tamiko Kent APRN Unavailable [phone] Pcp, No Primary Care Provider UnavailTommy Valladares MD Unavailable July Henley MD Primary Care Provider Encounter Details Date Type Department Care Team (Late st Contact Info) Description 05/17/2018 Scanned Document [facility] Neurosurgery [place] [address] [place] [address] Regla Haynes LPN [address] [place] [address] Social History Tobacco Use Types Packs/Day Years [...] on filedocumented in this encounter Care Teams Grounds Manager Relationship Specialty Start Date End Date Pcp, No PCP - General General Medicine 11/05/17 11/03/18 System, Provider Not In PCP - General 11/04/18 01/08/21 Tamiko Kent, PRECISION AIRCRAFT SYSTEMS ASSEMBLER [address] [place] [address] PCP - MSSP Attributed 07/13/19 0 Pcp, No PCP - General General Medicine 06/13/21 03/04/22 July Henley MD [address] [place] [address] PCP - General Internal Medicine 03/05/22 Abbie Jeffery MD Consulting Provider Physical Medicine and Rehabilitation 12/01/16 04/03/19 Gaviota Monsivais MD Consulting Provider Rheumatology 03/19/17 Nuno Ramesh MD Endocrinology 05/10/18 Martita De La O MD Consulting Provider Internal Medicine 04/04/19 Tommy Christianson MD [address] [place] [address] Physician Neurology 06/13/21 Dr. Aura Henley [address] [place] [address] Primary Care Provider Internal Medicine 01/09/21 documented as of this encounter
--- OUTSIDE RECORDS SUMMARY | 2024-11-15 13:19 | XMS_ITS | Encounter Summary ---
Author Organization [facility] Address [address] [place] [address] Care Team Providers Care High School Academic Coach Name Role Phone Gaviota Monsivais MD Unavailable [phone] Nuno Ramesh MD Unavailable Unavailable Martita De La O MD Unavailable [phone] Pcp, No Primary Care Provider UnavailTommy Valladares MD Unavailable [phone] July Henley MD Primary Care Provider [phone] Encounter Details Date Type Department Care Team (Late st Contact Info) Description 02/12/2022 Scanned Document [facility] Neurology [address] [id number] Jennifer Dick APRN [address] [address] Social History Tobacco Use Types Packs/Day Years Used Date Smoking Tobacco: Former Cigarettes 1 30 Smokeless Tobacco: Never Comments:Quit about 6 years ago Alcohol Use Standard Drinks/Week Comments Yes 2 (1 standard drink = 0.6 oz pure alcohol) 2 glasses of wine or less weekly Comments No Sex and Gender Information Value Date Recorded Sex Assigned at Female 01/01/2023 1:21 PM EDT Legal Sex Female 5:52 PM EDT Gender Identity Female 01/01/2023 1:21 PM EDT Sexual Orientation Heterosexual (straight) 01/01 1:21 PM EDT COVID-19 Exposure Response Date Recorded In the last 10 days, have yo u been in contact with someone who was confirmed or suspected to have Coronavirus/COVID-19? No / Unsure 01/31/2022 9:53 AM EDT documented as of this encounter Plan of Treatment Not on file documented as of this encounter Visit Diagnoses Not on filedocumented in this encounter Care Teams High School Academic Coach Relationship Specialty Start Date End Date Pcp, No PCP - General General Medicine 06/13/21 03/04/22 July Henley MD [address] [place] [address] [id number] PCP - General Internal Medicine 03/05/22 Gaviota Monsivais MD Consulting Provider Rheumatology 03/19/17 Nuno Ramesh MD Endocrinology 05/10/18 Martita De La O MD Consulting Provider Internal Medicine 04/04/19 Tommy Christianson MD [address] [place] [address] Physician Neurology 06/13/21 Dr. Aura Henley [address] [place] [address] Primary Care Provider Internal Medicine 01/09/21 documented as of this encounter
--- OUTSIDE RECORDS SUMMARY | 2024-11-15 13:19 | XMS_ITS | Encounter Summary ---
Author Organization [facility] Address [address] [place] [address] Care Team Providers Care Multi Needle Machine Operator Name Role Phone Abbie Jeffery MD Unavailable Pcp, No Primary Care Provider UnavailGaviota Post MD Unavailable [phone] Pcp, No Primary Care Provider Unavailabl Nuno Hernandez MD Unavailable Unavailable System, Provider Not In Primary Care Provider Un available Martita De La O MD Unavailable [phone] Tamiko Kent APRN Unavailable [phone] Pcp, No Primary Care Provider Unavailabl Tommy Carolina MD Unavailable [phone] July Henley MD Primary Care Provider Encounter Details Date Type Department Care Team (Late st Contact Info) Description 2017 Scanned Document [facility] Neurology [place] 35 [facility] [address] [place] [address] Tommy Christianson MD 35 [facility] [address] [place] [address] Social History Tobacco Use Types Packs/Day Years [...] on filedocumented in this encounter Care Teams Multi Needle Machine Operator Relationship Specialty Start Date End Date Pcp, No PCP - General General Medicine 12/01/16 11/04/17 Pcp, No PCP - General General Medicine 11/05/17 11/03/18 System, Provider Not In PCP - General 11/04/18 01/08/21 Tamiko Kent, CALL CENTER REPRESENTATIVE [address] [place] [address] PCP - MSSP Attributed 07/13/19 0 Pcp, No PCP - General General Medicine 06/13/21 03/04/22 July Henley MD [address] [place] [address] PCP - General Internal Medicine 03/05/22 Abbie Jeffery MD Consulting Provider Physical Medicine and Rehabilitation 12/01/16 04/03/19 Gaviota Monsivais MD Consulting Provider Rheumatology 03/19/17 Nuno Ramesh MD Endocrinology 05/10/18 Martita De La O MD Consulting Provider Internal Medicine 04/04/19 Tommy Christianson MD [address] [place] [address] Physician Neurology 06/13/21 Dr. Aura Henley [address] [place] [address] Primary Care Provider Internal Medicine 01/09/21 documented as of this encounter
--- OUTSIDE RECORDS SUMMARY | 2024-11-15 13:19 | XMS_ITS | Encounter Summary ---
Author Organization [facility] Address [address] [place] [address] Care Team Providers Care Rehab Office Coordinator Name Role Phone Agapito Garima Serina BRANNON Unavailable + Abbie Jeffery MD Unavailable [phone] Pcp, No Primary Care Provider UnavailGaviota Post MD Unavailable [phone] Pcp, No Primary Care Provider Unavailabl Nuno Hernandez MD Unavailable Unavailable System, Provider Not In Primary Care Provider Un available Martita De La O MD Unavailable [phone] Tamiko Kent APRN Unavailable [phone] Pcp, No Primary Care Provider UnavailTommy Valladares MD Unavailable [phone] July Henley MD Primary Care Provider Encounter Details Date Type Department Care Team (Late st Contact Info) Description 12/19/2016 Scanned Document [facility] Neurology [place] 35 [facility] [address] [place] [address] Tommy Christianson MD 35 [facility] [address] [place] [address] Social History Tobacco Use Types Packs/Day Years Used Date Smoking Tobacco: Former Comments:Quit about 6 years ago Alcohol Use Standard Drinks/Week Comments Yes 0 (1 standard drink = 0.6 oz pur e alcohol) 2 glasses of wine weekly Comments No Sex and Gender Information [...] on filedocumented in this encounter Care Teams Rehab Office Coordinator Relationship Specialty Start Date End Date Pcp, No PCP - General General Medicine 12/01/16 11/04/17 Pcp, No PCP - General General Medicine 11/05/17 11/03/18 System, Provider Not In PCP - General 11/04/18 01/08/21 Tamiko Kent APRN [address] [place] [address] PCP - MSSP Attributed 07/13/19 0 Pcp, No PCP - General General Medicine 06/13/21 03/04/22 July Henley MD [address] [place] [address] PCP - General Internal Medicine 03/05/22 Garima Altman DO Consulting Provider Rheumatology 12/01/16 03/18/17 Abbie Jeffery MD Consulting Provider Physical Medicine and Rehabilitation 12/01/16 04/03/19 Gaviota Monsivais MD Consulting Provider Rheumatology 03/19/17 Nuno Ramesh MD Endocrinology 05/10/18 Martita De La O MD Consulting Provider Internal Medicine 04/04/19 Tommy Christianson MD [address] [place] [address] Physician Neurology 06/13/21 Dr. Aura Henley [address] [place] [address] Primary Care Provider Internal Medicine 01/09/21 documented as of this encounter
--- OUTSIDE RECORDS SUMMARY | 2024-11-15 13:19 | XMS_ITS | Encounter Summary ---
Author Organization [facility] Address [address] [place] [address] Care Team Providers Care Retail Seasonal Specialist Name Role Phone Abbie Jeffery MD Unavailable Pcp, No Primary Care Provider UnavailGaviota Post MD Unavailable [phone] Pcp, No Primary Care Provider UnavailNuno García MD Unavailable Unavailable System, Provider Not In Primary Care Provider Un available Martita De La O MD Unavailable [phone] Tamiko Kent APRN Unavailable [phone] Pcp, No Primary Care Provider Unavailabl Tommy Carolina MD Unavailable [phone] July Henley MD Primary Care Provider [phone] Encounter Details Date Type Department Care Team (Late st Contact Info) Description 11/03/2017 Scanned Document [facility] Endocrinology [address] [address] Nuno Ramesh MD Social History Tobacco Use Types Packs/Day Years [...] on filedocumented in this encounter Care Teams Retail Seasonal Specialist Relationship Specialty Start Date End Date Pcp, No PCP - General General Medicine 12/01/16 11/04/17 Pcp, No PCP - General General Medicine 11/05/17 11/03/18 System, Provider Not In PCP - General 11/04/18 01/08/21 Tamiko Kent, CHIEF NURSING EXECUTIVE [address] [place] [address] PCP - MSSP Attributed 07/13/19 0 Pcp, No PCP - General General Medicine 06/13/21 03/04/22 July Henley MD [address] [place] [address] PCP - General Internal Medicine 03/05/22 Abbie Jeffery MD Consulting Provider Physical Medicine and Rehabilitation 12/01/16 04/03/19 Gaviota Monsivais MD Consulting Provider Rheumatology 03/19/17 Nuno Ramesh MD Endocrinology 05/10/18 Martita De La O MD Consulting Provider Internal Medicine 04/04/19 Tommy Christianson MD [address] [place] [address] Physician Neurology 06/13/21 Dr. Aura Henley [address] [place] [address] Primary Care Provider Internal Medicine 01/09/21 documented as of this encounter
--- OUTSIDE RECORDS SUMMARY | 2024-11-15 13:19 | XMS_ITS | Encounter Summary ---
Author Organization [facility] Address [address] [place] [address] Care Team Providers Care Financial Writer Name Role Phone Gaviota Monsivais MD Unavailable [phone] Nuno Ramesh MD Unavailable Unavailable Martita De La O MD Unavailable [phone] Pcp, No Primary Care Provider UnavailTommy Valladares MD Unavailable [phone] July Henley MD Primary Care Provider [phone] Encounter Details Date Type Department Care Team (Late st Contact Info) Description 01/18/2021 Scanned Document [facility] Neurology [address] [place] [phone] Lyle Pennington APRN [address] [place] [address] Social History Tobacco Use Types Packs/Day Years [...] Exposure Response Date Recorded In the last month, have you been in contact with someone who was confirmed or suspected to have Coronavirus / COVID-19? No / Unsure 01/09/2021 9:24 AM EDT documented as of this encounter Plan of Treatment Not on file documented as of this encounter Visit Diagnoses Not on filedocumented in this encounter Care Teams Financial Writer Relationship Specialty Start Date End Date Pcp, No PCP - General General Medicine 06/13/21 03/04/22 July Henley MD [address] [place] [address] PCP - General Internal Medicine 03/05/22 Gaviota Monsivais MD Consulting Provider Rheumatology 03/19/17 Nuno Ramesh MD Endocrinology 05/10/18 Martita De La O MD Consulting Provider Internal Medicine 04/04/19 Tommy Christianson MD [address] [place] [address] Physician Neurology 06/13/21 Dr. Aura Henley [address] [place] [address] Primary Care Provider Internal Medicine 01/09/21 documented as of this encounter
--- OUTSIDE RECORDS SUMMARY | 2024-11-15 13:19 | XMS_ITS | Encounter Summary ---
Author Organization [facility] Address [address] [place] [address] Care Team Providers Care Retail Advertising Account Executive Name Role Phone Abbie Jeffery MD Unavailable [phone] Pcp, No Primary Care Provider UnavailGaviota Post MD Unavailable [phone] Pcp, No Primary Care Provider Unavailabl Nuno Hernandez MD Unavailable Unavailable System, Provider Not In Primary Care Provider Un available Martita De La O MD Unavailable [phone] Tamiko Kent APRN Unavailable [phone] Pcp, No Primary Care Provider Unavailabl Tommy Carolina MD Unavailable July Henley MD Primary Care Provider [phone] Reason for Visit * Reason Comments Medication Refill Encounter Details Date Type Department Care Team (Late st Contact Info) Description 09/01/2017 Refill [facility] [place] [address] Tommy Christianson MD [address] [place] [address] Muscle spasms of both lower extremities Social [...] extremities documented in this encounter Care Teams Retail Advertising Account Executive Relationship Specialty Start Date End Date Pcp, No PCP - General General Medicine 12/01/16 11/04/17 Pcp, No PCP - General General Medicine 11/05/17 11/03/18 System, Provider Not In PCP - General 11/04/18 01/08/21 Tamiko Kent, CONTRACT PROGRAMMER [address] [place] [address] PCP - MSSP Attributed 07/13/19 0 Pcp, No PCP - General General Medicine 06/13/21 03/04/22 July Henley MD [address] [place] [address] PCP - General Internal Medicine 03/05/22 Abbie Jeffery MD Consulting Provider Physical Medicine and Rehabilitation 12/01/16 04/03/19 Gaviota Monsivais MD Consulting Provider Rheumatology 03/19/17 Nuno Ramesh MD Endocrinology 05/10/18 Martita De La O MD Consulting Provider Internal Medicine 04/04/19 Tommy Christianson MD [address] [place] [address] Physician Neurology 06/13/21 Dr. Aura Henley [address] [place] [address] Primary Care Provider Internal Medicine 01/09/21 documented as of this encounter
--- OUTSIDE RECORDS SUMMARY | 2024-11-15 13:19 | XMS_ITS | Encounter Summary ---
Author Organization [facility] Address [address] [place] [address] Care Team Providers Care Teacher Counselor Name Role Phone Abbie Jeffery MD Unavailable [phone] Pcp, No Primary Care Provider UnavailGaviota Post MD Unavailable [phone] Pcp, No Primary Care Provider Unavailabl Nuno Hernandez MD Unavailable Unavailable System, Provider Not In Primary Care Provider Un available Martita De La O MD Unavailable [phone] Tamiko Kent APRN Unavailable [phone] Pcp, No Primary Care Provider Unavailabl Tommy Carolina MD Unavailable [phone] July Henley MD Primary Care Provider Encounter Details Date Type Department Care Team (Late st Contact Info) Description 09/15/2017 Scanned Document [facility] Neurology [place] 35 [facility] [address] [place] [address] Tommy Christianson MD 35 [facility] [address] [place] [address] Social History Tobacco Use Types Packs/Day Years [...] on filedocumented in this encounter Care Teams Teacher Counselor Relationship Specialty Start Date End Date Pcp, No PCP - General General Medicine 12/01/16 11/04/17 Pcp, No PCP - General General Medicine 11/05/17 11/03/18 System, Provider Not In PCP - General 11/04/18 01/08/21 Tamiko Kent, APPRENTICE CARPENTER [address] [place] [address] PCP - MSSP Attributed 07/13/19 0 Pcp, No PCP - General General Medicine 06/13/21 03/04/22 July Henley MD [address] [place] [address] PCP - General Internal Medicine 03/05/22 Abbie Jeffery MD Consulting Provider Physical Medicine and Rehabilitation 12/01/16 04/03/19 Gaviota Monsivais MD Consulting Provider Rheumatology 03/19/17 Nuno Ramesh MD Endocrinology 05/10/18 Martita De La O MD Consulting Provider Internal Medicine 04/04/19 Tommy Christianson MD [address] [place] [address] Physician Neurology 06/13/21 Dr. Aura Henley [address] [place] [address] Primary Care Provider Internal Medicine 01/09/21 documented as of this encounter
--- OUTSIDE RECORDS SUMMARY | 2024-11-15 13:19 | XMS_ITS | Encounter Summary ---
Author Organization [employer] Address [address] [place] [address] Care Team Providers Care Building Services Supervisor Name Role Phone July Henley MD Primary Care Provider [phone] Encounter Details Date Type Department Care Team (Latest Contact Info) Description 11/10/2024 Travel Social History Tobacco Use Types Packs/Day Years Used Date Smoking Tobacco: Never Passive Smoke Exposure: Never Smokeless Tobacco: Never Depression Answer Date Recorded Patient Health Questionnaire-9 Score 0 01/29/2024 Patient Health Questionnaire-9 Score 0 01/29/2024 Last PHQ-9: Questionnaire Data Not on file 0 01/29/2024 Housing Stability Answer Date Recorded What is [...] off services in your home? No 05/04/2023 Depression Answer Date Recorded Patient Health Questionnaire-2 Score 0 01/29/2024 Internet Access Answer Date Recorded Internet Access Q1 Yes 03/14/2024 Internet Access Q2 Not on file 03/14/2024 Comments Unknown Sex and Gender Information Value Date Recorded Sex Assigned at Female 05/12/2022 10:17 AM EDT Legal Sex Female 10:17 AM EDT Gender Identity Female 05/12/2022 10:17 AM EDT Sexual Orientation Straight 05/12/2022 10 :17 AM EDT documented as of this encounter Plan of Treatment Not on file documented as of this encounter Visit Diagnoses Not on filedocumented in this encounter Additional Health Concerns Assessment Noted Time PHQ-9 Depression Total Score: 0 01/29/20 24 9:00 AM EDT documented as of this encounter Care Teams Building Services Supervisor Relationship Specialty Start Date End Date July Henley MD [address] [place] [address] PCP - General Family Medicine 03/30/13 documented as of this encounter
--- OUTSIDE RECORDS SUMMARY | 2024-11-15 13:19 | XMS_ITS | Encounter Summary ---
Author Organization [facility] Address [address] [place] [address] Care Team Providers Care Call Or Contact Centre Coach Name Role Phone Abbie Jeffery MD Unavailable Pcp, No Primary Care Provider UnavailGaviota Post MD Unavailable [phone] Pcp, No Primary Care Provider Unavailabl Nuno Hernandez MD Unavailable Unavailable System, Provider Not In Primary Care Provider Un available Martita De La O MD Unavailable [phone] Tamiko Kent APRN Unavailable [phone] Pcp, No Primary Care Provider Unavailabl Tommy Carolina MD Unavailable [phone] July Henley MD Primary Care Provider Encounter Details Date Type Department Care Team (Late st Contact Info) Description 09/07/2017 Scanned Document [facility] Neurology [place] 35 [facility] [address] [place] [address] Tommy Christianson MD 35 [facility] [address] [place] [address] Social History Tobacco Use Types Packs/Day Years [...] on filedocumented in this encounter Care Teams Call Or Contact Centre Coach Relationship Specialty Start Date End Date Pcp, No PCP - General General Medicine 12/01/16 11/04/17 Pcp, No PCP - General General Medicine 11/05/17 11/03/18 System, Provider Not In PCP - General 11/04/18 01/08/21 Tamiko Kent, SHEARER HELPER [address] [place] [address] PCP - MSSP Attributed 07/13/19 0 Pcp, No PCP - General General Medicine 06/13/21 03/04/22 July Henley MD [address] [place] [address] PCP - General Internal Medicine 03/05/22 Abbie Jeffery MD Consulting Provider Physical Medicine and Rehabilitation 12/01/16 04/03/19 Gaviota Monsivais MD Consulting Provider Rheumatology 03/19/17 Nuno Ramesh MD Endocrinology 05/10/18 Martita De La O MD Consulting Provider Internal Medicine 04/04/19 Tommy Christianson MD [address] [place] [address] Physician Neurology 06/13/21 Dr. Aura Henley [address] [place] [address] Primary Care Provider Internal Medicine 01/09/21 documented as of this encounter
--- OUTSIDE RECORDS SUMMARY | 2024-11-15 13:19 | XMS_ITS ---
[facility] Name [facility] Unknown History of Medication Use Medication Directions Dispensed Refills Start Date End Date [facility] amLODIPine (Norvasc) 2.5 mg tablet Take 1 tablet (2.5 mg total) by mouth 1 (one) time each day. 09/07/2024 active DULoxetine (CYMBALTA) [address] capsule Take 1 capsule (60 mg total) by mouth 2 (two) times a day. 09/07/2024 active traMADoL (ULTRAM) 50 mg tablet Take 1 tablet (50 mg total) by mouth every 6 (six) hours if needed for severe pain. Max Daily Amount: 200 mg 08/30/2024 active ibuprofen (ADVIL,MOTRIN) 800 mg tablet Take 1 tablet (800 mg total) by mouth 2 times daily as needed. 02/05/2024 active cyclobenzaprine (FLEXERIL) 10 mg tablet Take 1 tablet (10 mg total) by mouth. 10/27/2023 active cyclobenzaprine (FLEXERIL) 10 MG tablet Take 1 tablet (10 mg total) by mouth every night at bedtime as needed for muscle spasms. 10/27/2023 active diclofenac (VOLTAREN) 1 % topical gel Apply 1 g topically 2 times daily as needed. 10/27/2023 active traMADol (ULTRAM) 50 MG tablet TAKE 1 TABLET BY MOUTH EVERY 6 HOURS NEEDED FOR PAIN FOR UP TO 30 DAYS 08/18/2023 active senna-docusate (SENNA-S) 8.6-50 MG Take 2 tablets by mouth nightly. 06/18/2023 07/19/2023 active oxyCODONE (ROXICODONE) 5 MG immediate release tablet Take 1 tablet (5 mg total) by mouth 4 times daily (every 6 hours) as needed for moderate pain or severe pain. Max Daily Amount: 20 mg 06/03/2023 07/08/2023 active DULoxetine (CYMBALTA) [address] capsule Take 1 capsule (60 mg total) by mouth 2 (two) times a day. 09/29/2022 09/07/2024 aborted ibuprofen 800 MG tablet 07/25/2022 10/27/2023 aborted tacrolimus (PROTOPIC) 0.1 % ointment APPLY TOPICALLY 2 TIMES A DAY NEEDED 02/10/2022 active tacrolimus (PROTOPIC) 0.1 % ointment APPLY TOPICALLY 2 TIMES A DAY NEEDED 02/10/2022 active tacrolimus (PROTOPIC) 0.1 % ointment APPLY TOPICALLY 2 TIMES A DAY NEEDED 02/10/2022 active amLODIPine (NORVASC) 5 MG tablet Take 1 tablet (5 mg total) by mouth daily. 10/27/2021 05/26/2023 active metroNIDAZOLE (METROCREAM) 0.75 % cream Apply topically 2 (two) times a day. To face. 09/17/2021 active lidocaine (LIDODERM) 5 % patch Apply 1 patch topically 1 (one) time each day. 06/25/2021 09/07/2024 active lidocaine (LIDODERM) 5 % Place 1 patch onto the skin. 06/25/2021 active amLODIPine (NORVASC) 5 mg tablet Take 1 tablet (5 mg total) by mouth 1 (one) time each day. 04/12/2021 09/07/2024 aborted meloxicam (MOBIC) 7.5 MG tablet Take 1 tablet (7.5 mg total) by mouth daily. 03/30/2019 05/26/2023 active baclofen (LIORESAL) 10 MG tablet Take 1 tablet (10 mg total) by mouth every night at bedtime as needed (may take 2 tabs at night). 10/27/2016 10/27/2023 aborted aluminum chloride (DRYSOL) 20 % external solution as needed. 2016 active aluminum chloride (DRYSOL) 20 % external solution as needed. 2016 active DULoxetine (CYMBALTA) 60 MG capsule Take 1 capsule (60 mg total) by mouth 2 (two) times a day. 05/01/2015 active lisinopril-hydroCHLORO thiazide (PRINZIDE,ZESTORETIC) 20-25 mg per tablet 04/28/2015 09/07/2024 abort ed cholecalciferol (VITAMIN D-3) 50 mcg (2,000 unit) capsule Take 1 capsule (2,000 Units total) by mouth 2 (two) times a day. 04/28/2015 active traZODone (DESYREL) 50 mg tablet Take 1 tablet (50 mg total) by mouth. active Problems Problem Status Onset Date Problem Type Date of Resolution Source Anemia of chronic disease active EncounterDiagnosisAct [facility] Nonintractable migraine active 2015-06-07 ProblemAct [facility] H/O Raynaud's syndrome active EncounterDiagnosisAct [facility] DDD (degenerative disc disease), lumbosacral active 2015-12-18 ProblemAct [facility] Dry eyes, bilateral active EncounterDiagnosisAc t CT_THSFRAN Bulge of lumbar disc without myelopathy active 2016-04-01 ProblemAct [facility] N Paresthesia of both lower extremities active 2015-07-03 ProblemAct [facility] Undifferentiated connective tissue disease (CMS/HCC) active EncounterDiagnosisAct C T_THSFRAN Fibromyalgia active EncounterDiagnosisAct CT_THSFRAN Muscle pain active 2015-08-13 ProblemAct [facility] Low back pain with right-sided sciatica active 2016-09-12 ProblemAct [facility] RAN Elevated aldolase level active 2015-08-13 ProblemAct [facility] Murmur, cardiac active 2015-06-[address] [facility] Irritable bowel syndrome with diarrhea active 2015-06-07 ProblemAct [facility] Lumbago active 2015-07-03 ProblemAct [facility] AN Polyarticular osteoarthritis active EncounterDiagnosisAct CTTH NEMG Low back pain with left-sided sciatica active 2016-09-12 ProblemAct CTTHNEMG Lumbar facet arthropathy active 2016-08-12 ProblemAct [facility]THNEMG Bulge of lumbar disc without myelopathy active 2016-04-01 ProblemAct [facility]THNEMG Arthralgia of both hands active EncounterDiagnosisAct CTTHNE MG Lumbar radiculitis active 2016-04-01 ProblemAct [facility]THNEM[facility] DDD (degenerative disc disease), lumbosacral active 2015-12-18 ProblemAct CTTHNEMG Lumbar stenosis with neurogenic claudication active 2023-06-02 ProblemAct [facility] Vitamin D deficiency active 2019-09-20 ProblemAct [facility] Degenerative lumbar spinal stenosis active 2023-06-17 ProblemAct [facility] Myalgia active EncounterDiagnosisAct [facility] QT prolongation active 2023-06-01 ProblemAct [facility] Adrenal adenoma, left active ProblemAct [facility] Hypertension active ProblemAct [facility] Mitral stenosis and aortic regurgitation active ProblemAct [facility] Lumbar disc herniation active 2016-04-01 ProblemAct [facility] Immunizations Vaccine Date Source Lot Number Status Influenza, Quadrivalent (FLU ARIX, AFLURIA, FLULAVAL, FLUZONE) Preservative Free IM 06/03/2023 [facility] completed Encounters Encounter Type Encounter Reason Primary Diagnosis Location Date Ambulatory Dry eye syndrome of bilateral lacrimal glands Dry eye syndrome of bilateral lacrimal glands [facility] 09/07/2024 Ambulatory Spinal stenosis, lumbar region with neurogenic claudication Spinal stenosis, lumbar region with neurogenic claudication [place] 09/15/2023 Ambulatory Arthrodesis status Arthrodesis status [facility] 06/26/2023 Ambulatory Radiculopathy, lumba r region Radiculopathy, lumbar region [place] 06/26/2023 Ambulatory Spinal stenosis, lumbar region with neurogenic claudication Spinal stenosis, lumbar region with neurogenic claudication [place] 06/17/2023 Inpatient Spinal stenosis, lumbar region with neurogenic claudication Spinal stenosis, lumbar region with neurogenic claudication [place] 06/02/2023 Ambulatory Encounter for other preprocedural examination Encounter for other preprocedural examination [place] 06/01/2023 Ambulatory Spinal stenosis, lumbar region without neurogenic claudication Spinal stenosis, lumbar region without neurogenic claudication [place] 05/29/2023 Ambulatory Other intervertebral disc degeneration, lumbosacral region Other intervertebral disc degeneration, lumbosacral region [place] 01/01/2023 Ambulatory Spinal stenosis, lumbar region without neurogenic claudication [place] 10/08/2022 Ambulatory Spinal stenosis, lumbar region without neurogenic claudication [place] 08/08/2022 Ambulatory Lumbago with sciatica, left side Lumbago with sciatica, left side [place] 07/17/2022 Ambulatory Rash and other nonspecific skin eruption [place] 05/13/2022 Ambulatory [place] 04/02/2022 Ambulatory Erythromelalgia [place] 01/31/2022 Ambulatory Sleep disorder, unspecified [place] 01/31/2022 Ambulatory Seborrheic derma titis, unspecified [place] 12/18/2021 Ambulatory Rash [place] 09/17/2021 Ambulatory Rash and other nonspecific skin eruption [place] 06/19/2021 Ambulatory Other muscle spasm [place] 06/13/2021 Care Team Organization Name Specialty Phone Email Start Date End Da te [facility] [place] Stella Henley Primary Care 05/13/20222024 [place] NO PCP Primary Care 06/13/2021 05/13/2022 [place] STELLA HENLEY Primary Care 06/13/20212021
--- OUTSIDE RECORDS SUMMARY | 2024-11-15 13:19 | XMS_ITS | Encounter Summary ---
Author Organization [employer] Address [address] [facility] 7[address] [place] [address] Care Team Providers Care Bisque Placer Name Role Phone July Henley MD Primary Care Provider [phone] Encounter Details Date Type Department Care Team ([facility] st Contact Info) Description 11/10/2024 11:15 AM EDT Telemedicine [facility] [address] [place] [place], [place] [phone] Sukhi Davey MD [address], [place] [phone] Right hip pain (Primary Dx) Social History Tobacco Use Types Packs/Day Years [...] AM EDT documented as of this encounter Progress Notes * Skuhi Tyler MD - 11/10/2024 11:15 AM EDT Subjective Patient ID: Melissa Bunn is a 59 y.o. female who presents for No chief complaint on file.. HPI Review of Systems Constitutional: Negative for chills, fatigue and fever. Respiratory: Negative for cough and shortness of breath. Cardiovascular: Negative for chest pain and palpitations. Gastrointestinal: Negative for abdominal distention, blood in stool and constipation. Objective Physical Exam Neurological: General: No focal deficit present. Mental Status: She is oriented to person, place, and time. Psychiatric: Mood and Affect: Mood normal. Behavior: Behavior normal. Assessment/Plan Problem List Items Addressed This Visit None Visit Diagnoses Right hip pain - Primary Chronic, no recent hx of trauma, will order xray, continue home remedies, nsaids/tramadol Relevant Orders XR Hip 2 or 3 Views Right documented in this encounter Plan of Treatment Not on file documented as of this encounter Procedures Procedure Name Priority Date/Time Associated Diagnosis Comments XR HIP 2 OR 3 VIEWS RIGHT Routine 11/15/2024 11:42 AM EDT Right hip pain documented in this encounter Results * XR Hip 2 or 3 Views Right (11/15/2024 11:42 AM EDT) Anatomical Region Laterality Modality Lower Extremities, Hip Right Radiograp hic Imaging 11/15/2024 11:4 2 AM EDT Narrative 11/15/2024 12:08 PM EDT ? [facility] ?[address] ?[place] [address] ?XRay Report ? Signed ? Patient: Bunn,Melissa ?MR#: [id number] ? : 1965 ?Acct:[id number] ? Age/Sex: 59 / F ?ADM Date: 11/15/24 ? Loc: HO.XRAY ? Attending Dr: Sukhi Tyler MD ? Ordering Physician: Sukhi Davey MD ?? Date of Service: 11/15/24 ?? Procedure(s): XR hip RT min 2V ?? Accession Number(s): [id number] ? cc: July Henley MD; Sukhi Davey MD ? EXAMINATION: ?? XR HIP, RIGHT ? CLINICAL INFORMATION: ?? right hip pain ? COMPARISON: ?? None available. ? TECHNIQUE: ?? Two views of the right hip. ? FINDINGS: ?? No acute cortical disruption or malalignment. Mild sclerosis and the ?? articular surface of the right acetabulum. Osteopenia versus ?? osteoporosis. Metallic hardware in the upper sacrum lower lumbar spine ?? no included in the [id number]. Degenerative changes in the symphysis ?? pubis. ? XR/XR hip RT min 2V ?? IMPRESSION: ?? Mild osteoarthrosis, right hip. ? Electronically signed by: ??James Mendes MD ??11/15/2024 12:05 PM ?? EDT ? Dictated By: ?James Fabian MD ? Signed By: ?<Electronically signed by James Swan MD in OV> ? 11/15/24 1205 ? DD/ 1142 ? TD/TT: 11/15/24 1159 ? Discharging Machine Operator: ? Procedure Note Anurag Nicholas - 11/15/2024 [facility] [address] [facility] [place] [address] XRay Report Signed Patient: Manasa BunnJulián#: [id number] : 1965Acct:[id number] Age/Sex: 59 / FADM Date: 11/15/24 Loc: HO.XRAY Attending Dr: Sukhi Tyler MD Ordering Physician: Sukhi Davey MD Date of Service: 11/15/24 Procedure(s): XR hip RT min 2V Accession Number(s): [id number] cc: July Henley MD; Sukhi Davey MD EXAMINATION: XR HIP, RIGHT CLINICAL INFORMATION: right hip pain COMPARISON: None available. TECHNIQUE: Two views of the right hip. FINDINGS: No acute cortical disruption or malalignment. Mild sclerosis and the articular surface of the right acetabulum. Osteopenia versus osteoporosis. Metallic hardware in the upper sacrum lower lumbar spine no included in the [id number]. Degenerative changes in the symphysis pubis. XR/XR hip RT min 2V IMPRESSION: Mild osteoarthrosis, right hip. Electronically signed by: James Mendes MD 11/15/2024 12:05 PM EDT Dictated By: James Fabian MD Signed By: <Electronically signed by James Swan MDin OV> 11/15/24 1205 DD/ 1142 TD/TT: 11/15/24 1159 Discharging Machine Operator: Sukhi Tyler MD IMG XR PROCEDURES Final Result documented in this encounter Visit Diagnoses Diagnosis Right hip pain- Primary Pain in joint, pelvic region and thigh documented in this encounter Additional Health Concerns Assessment Noted Time PHQ-9 Depression Total Score: 0 01/29/20 24 9:00 AM EDT documented as of this encounter Care Teams Bisque Placer Relationship Specialty Start Date End Date July Henley MD [address] [place] [address] PCP - General Family Medicine 03/30/13 documented as of this encounter
--- OUTSIDE RECORDS SUMMARY | 2024-11-15 13:19 | XMS_ITS | Encounter Summary ---
Author Organization [facility] Address [address] [place] [address] Care Team Providers Care Paranormal Investigator Name Role Phone Abbie Jeffery MD Unavailable [phone] Pcp, No Primary Care Provider UnavailGaviota Post MD Unavailable [phone] Pcp, No Primary Care Provider Unavailabl Nuno Hernandez MD Unavailable Unavailable System, Provider Not In Primary Care Provider Un available Martita De La O MD Unavailable [phone] Tamiko Kent APRN Unavailable [phone] Pcp, No Primary Care Provider Unavailabl Tommy Carolina MD Unavailable July Henley MD Primary Care Provider [phone] Encounter Details Date Type Department Care Team (Late st Contact Info) Description 07/15/2017 Scanned Document [facility] Neurology [place] 35 [facility] [address] [place] [address] Tommy Christianson MD 35 [facility] [address] [place] [address] Social History Tobacco Use Types Packs/Day Years [...] on filedocumented in this encounter Care Teams Paranormal Investigator Relationship Specialty Start Date End Date Pcp, No PCP - General General Medicine 12/01/16 11/04/17 Pcp, No PCP - General General Medicine 11/05/17 11/03/18 System, Provider Not In PCP - General 11/04/18 01/08/21 Tamiko Kent, CLINICAL IMPLEMENTATION SPECIALIST [address] [place] [address] PCP - MSSP Attributed 07/13/19 0 Pcp, No PCP - General General Medicine 06/13/21 03/04/22 July Henley MD [address] [place] [address] PCP - General Internal Medicine 03/05/22 Abbie Jeffery MD Consulting Provider Physical Medicine and Rehabilitation 12/01/16 04/03/19 Gaviota Monsivais MD Consulting Provider Rheumatology 03/19/17 Nuno Ramesh MD Endocrinology 05/10/18 Martita De La O MD Consulting Provider Internal Medicine 04/04/19 Tommy Christianson MD [address] [place] [address] Physician Neurology 06/13/21 Dr. Aura Henley [address] [place] [address] Primary Care Provider Internal Medicine 01/09/21 documented as of this encounter
--- OUTSIDE RECORDS SUMMARY | 2024-11-15 13:19 | XMS_ITS | Encounter Summary ---
Author Organization [facility] Address [address] [place] [address] Care Team Providers Care Forge Utility Worker Name Role Phone Abbie Jeffery MD Unavailable [phone] Pcp, No Primary Care Provider UnavailGaviota Post MD Unavailable [phone] Pcp, No Primary Care Provider Unavailabl Nuno Hernandez MD Unavailable Unavailable System, Provider Not In Primary Care Provider Un available Martita De La O MD Unavailable [phone] Tamiko Kent APRN Unavailable [phone] Pcp, No Primary Care Provider Unavailabl Tommy Carolina MD Unavailable [phone] July Henley MD Primary Care Provider [phone] Encounter Details Date Type Department Care Team (Late st Contact Info) Description 07/08/2017 Scanned Document [facility] Neurology [place] 35 [facility] [address] [place] [address] Tommy Christianson MD 35 [facility] [address] [place] [address] Social History Tobacco Use Types Packs/Day Years [...] on filedocumented in this encounter Care Teams Forge Utility Worker Relationship Specialty Start Date End Date Pcp, No PCP - General General Medicine 12/01/16 11/04/17 Pcp, No PCP - General General Medicine 11/05/17 11/03/18 System, Provider Not In PCP - General 11/04/18 01/08/21 Tamiko Kent, PROP CUTTER [address] [place] [address] PCP - MSSP Attributed 07/13/19 0 Pcp, No PCP - General General Medicine 06/13/21 03/04/22 July Henley MD [address] [place] [address] PCP - General Internal Medicine 03/05/22 Abbie Jeffery MD Consulting Provider Physical Medicine and Rehabilitation 12/01/16 04/03/19 Gaviota Monsivais MD Consulting Provider Rheumatology 03/19/17 Nuno Ramesh MD Endocrinology 05/10/18 Martita De La O MD Consulting Provider Internal Medicine 04/04/19 Tommy Christianson MD [address] [place] [address] Physician Neurology 06/13/21 Dr. Aura Henley [address] [place] [address] Primary Care Provider Internal Medicine 01/09/21 documented as of this encounter
--- OUTSIDE RECORDS SUMMARY | 2024-11-15 13:19 | XMS_ITS | Encounter Summary ---
Author Organization [facility] Address [address] [place] [address] Care Team Providers Care Answering Service Telephone Operator Name Role Phone Gaviota Monsivais MD Unavailable [phone] Nuno Ramesh MD Unavailable Unavailable Martita De La O MD Unavailable [phone] Pcp, No Primary Care Provider UnavailTommy Valladares MD Unavailable [phone] July Henley MD Primary Care Provider [phone] Reason for Visit * Reason Comments Medication Refill Encounter Details Date Type Department Care Team (Late st Contact Info) Description 02/09/2022 Refill [facility] Dermatology [place] [address] [place] [phone] Peri Saleh MD [address] [address] Other eczema Social History Tobacco Use Types Packs/Day Years [...] as of this encounter Visit Diagnoses Diagnosis Other eczema documented in this encounter Care Teams Answering Service Telephone Operator Relationship Specialty Start Date End Date Pcp, No PCP - General General Medicine 06/13/21 03/04/22 July Henley MD [address] [place] [address] PCP - General Internal Medicine 03/05/22 Gaviota Monsivais MD Consulting Provider Rheumatology 03/19/17 Nuno Ramesh MD Endocrinology 05/10/18 Martita De La O MD Consulting Provider Internal Medicine 04/04/19 Tommy Christianson MD [address] [place] [address] Physician Neurology 06/13/21 Dr. Aura Henley [address] [place] [address] Primary Care Provider Internal Medicine 01/09/21 documented as of this encounter
--- OUTSIDE RECORDS SUMMARY | 2024-11-15 13:19 | XMS_ITS | Encounter Summary ---
Author Organization [facility] Address [address] [place] [address] Care Team Providers Care Internet Marketing Coordinator Name Role Phone Gaviota Monsivais MD Unavailable [phone] Nuno Ramesh MD Unavailable Unavailable Martita De La O MD Unavailable [phone] Pcp, No Primary Care Provider UnavailTommy Valladares MD Unavailable [phone] July Henley MD Primary Care Provider [phone] Reason for Visit * Reason Comments Medication Refill Encounter Details Date Type Department Care Team (Late st Contact Info) Description 01/21/2021 Refill [facility] Neurology [address] [phone] Tamiko Kent, BEAD MAKER [address] [place] [phone] Paresthesia of both lower extremities Social History Tobacco [...] as of this encounter Visit Diagnoses Diagnosis Paresthesia of both lower extremities documented in this encounter Care Teams Internet Marketing Coordinator Relationship Specialty Start Date End Date Pcp, No PCP - General General Medicine 06/13/21 03/04/22 July Henley MD [address] [place] [address] PCP - General Internal Medicine 03/05/22 Gaviota Monsivais MD Consulting Provider Rheumatology 03/19/17 Nuno Ramesh MD Endocrinology 05/10/18 Martita De La O MD Consulting Provider Internal Medicine 04/04/19 Tommy Christianson MD [address] [place] [address] Physician Neurology 06/13/21 Dr. Aura Henley [address] [place] [address] Primary Care Provider Internal Medicine 01/09/21 documented as of this encounter
--- OUTSIDE RECORDS SUMMARY | 2024-11-15 13:19 | XMS_ITS | Encounter Summary ---
Author Organization [facility] Address [address] [place] [address] Care Team Providers Care Senior Mechanical Design Engineer Name Role Phone Gaviota Monsivais MD Unavailable [phone] Nuno Ramesh MD Unavailable Unavailable Martita De La O MD Unavailable [phone] Pcp, No Primary Care Provider UnavailTommy Valladares MD Unavailable July Henley MD Primary Care Provider Encounter Details Date Type Department Care Team (Late st Contact Info) Description 01/21/2021 Scanned Document [facility] Neurology [address] [place] [id number] Lyle Pennington APRN [address] [place] [address] Social History Tobacco Use Types [...] on filedocumented in this encounter Care Teams Senior Mechanical Design Engineer Relationship Specialty Start Date End Date Pcp, No PCP - General General Medicine 06/13/21 03/04/22 July Henley MD [address] [place] [address] PCP - General Internal Medicine 03/05/22 Gaviota Monsivais MD Consulting Provider Rheumatology 03/19/17 Nuno Ramesh MD Endocrinology 05/10/18 Martita De La O MD Consulting Provider Internal Medicine 04/04/19 Tommy Christianson MD [address] [place] [address] Physician Neurology 06/13/21 Dr. Aura Henley [address] [place] [address] Primary Care Provider Internal Medicine 01/09/21 documented as of this encounter
--- OUTSIDE RECORDS SUMMARY | 2024-11-15 13:19 | XMS_ITS | Clinical Summary ---
Author Organization [facility] Address [address] [place] [address] Care Team Providers Care Weaving Inspector Name Role Phone Gaviota Monsivais MD Unavailable [phone] Nuno Ramesh MD Unavailable Unavailable Martita De La O MD Unavailable [phone] Tommy Christianson MD Unavailable [phone] July Henley MD Primary Care Provider [phone] Allergies No known active allergies Medications Cholecalciferol (VITAMIN D3) 2000 UNITS Cap capsule Take 1 capsule (2,000 Units total) by mouth daily. 5 Active DULoxetine (CYMBALTA) 60 MG capsule Take 1 capsule (60 mg total) by mouth 2 (two) times a day. 5 Active lisinopril-hydro chlorothiazide (PRINZIDE,ZESTOR ETIC) 20-25 MG per tablet Take 1 tablet by mouth every morning. 0 Active lidocaine (LIDODERM) 5 % patchIndications :Erythromelalgia Place 1 patch on the skin daily. Apply patch and leave on for 12 hours then remove. Patch may remain on skin for 12 hours per day. 30 patch 1 1 Active metroNIDAZOLE (METROCREAM) 0.75 % creamIndications :Erythromelalgia Apply topically 2 (two) times a day. To face. 45 g 11 2 Active SUPPLY DME MISCIndications: Paresthesia of both lower extremities 1 Wrist splint for right arm. 1 Wrist splint for left arm to maintain wrist extension, on at night off in am for suspected carpal tunnel. 2 each 2 Active tacrolimus (PROTOPIC) 0.1 % ointmentIndicati ons:Other eczema APPLY TOPICALLY 2 TIMES A DAY NEEDED 30 g 5 2 Active baclofen (LIORESAL) 10 MG tabletIndication s:Muscle spasms of both lower extremities Take 1 tablet (10 mg total) by mouth 3 (three) times a day. 270 tablet 3 2 Active Drysol 20 % external solution APPLY EVERY OTHER DAY TO ARMPITS 2 Active senna-docusate (SENNA-S) 8.6-50 MGIndications:De generative lumbar spinal stenosis Take 2 tablets by mouth nightly. 60 tablet 3 Active oxyCODONE (ROXICODONE) 5 MG immediate release tabletIndication s:Degenerative lumbar spinal stenosis Take 1 tablet (5 mg total) by mouth 4 times daily (every 6 hours) as needed for moderate pain or severe pain. Max Daily Amount: 20 mg 28 tablet 3 Active Active Problems Problem Noted Date Diagnosed Date Degenerative lumbar spinal stenosis 06/17/2023 Lumbar stenosis with neurogenic claudication QT prolongation 06/01/2023 Assessment & Plan (06/01/2023 3:47 PM EST): QTc 482, recent EKG with the PCP had shown QTc 493, amitriptyline has been stopped since then. Avoid QT prolonging drugs Vitamin D deficiency 09/20/2019 Neural foraminal stenosis of lumbar spine 2017 Low back pain with left-sided sciatica 7 Low back pain with right-sided sciatica 09/13/19 17 Lumbar facet arthropathy 08/12/2016 Lumbar disc herniation 04/01/2016 Lumbar radiculitis 04/01/2016 DDD (degenerative disc disease), lumbosacral 01/2016 Irritable bowel syndrome with diarrhea 5 Nonintractable migraine 06/07/2015 Hypertension Assessment & Plan (06/01/2023 3:24 PM EST): Blood pressure is well controlled, on lisinopril/HCTZ at baseline which patient will skip taking on the morning of surgery Mitral stenosis and aortic regurgitation Assessment & Plan (06/01/2023 3:27 PM EST): Moderate aortic regurgitation and mild to moderate mitral stenosis noted on echocardiogram from 2019. Stress testing at that time was negative for ischemia. Excellent functional status, able to climb stairs without any limiting symptoms such as chest pain pressure or discomfort. No dyspnea. No lightheadedness or dizziness. No history of syncope. No clinical concern for congestive heart failure. No leg edema. 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 No histopathologic evidence for pheochromocytoma. No acute concerns before the surgical procedure Immunizations Immunization Administration Dates Next Due Influenza, Quadrivalent (FLU ARIX, AFLURIA, FLULAVAL, FLUZONE) Preservative Free IM 06/03/2023() Family History Medical History Relation Name Comments Other Brother 1 Lyme Disease Other Brother 2 MS Diabetes Father Cancer Mother lung Other Mother MS No Known Problems Son 1 No Known Problems Son 2 No Known Problems Son 3 Relation Name Status Comments Brother 1 Alive Brother 2 Alive Father Mother Son 1 Alive Son 2 Alive Son 3 Alive Social History Tobacco Use Types Packs/Day Years Used Date Smoking Tobacco: Former Cigarettes 1 30 1 978 - 2007 Smokeless Tobacco: Never Tobacco Cessation:Counseling Given: Not Answered Alcohol Use Standard Drinks/Week Comments Yes 2 [...] Orientation Heterosexual (straight) 01/01 1:21 PM EDT Last Filed Vital Signs Vital Sign Reading Time Taken Comments Blood Pressure 133/80 09/15/2023 8:43 AM EST Pulse 70 09/15/2023 8:43 AM EST Temperature 36.6 ??C (97.8 ??F) 06/18/2023 10:[address] Respiratory Rate 18 06/18/2023 10:34 AM EST Oxygen Saturation 96% 09/15/2023 8:43 AM EST Inhaled Oxygen Concentration - - Weight 77.1 kg (170 lb) 09/15/2023 8:43 AM EST Height 160 cm (5' 3 ) 09/15/2023 8:43 AM EST Body Mass Index 30.11 09/15/2023 8:43 AM EST Plan of Treatment Health Maintenance Due Date Last Done Comments Hepatitis C Virus Screening 1965 HIV Screening 1978 DTaP/Tdap/Td Vaccines (1 - Tdap) 1984 Hepatitis B Vaccines (1 of 3 - 19+ 3-dose series) 1984 Pneumococcal Vaccines 50+ (1 of 2 - PCV) 1984 Pap Smear (Ages 21-65) 1986 Mammogram 2005 Colonoscopy 2010 Zoster (Shingles) Vaccine (1 of 2) 10/03/2015 COVID-19 Vaccine ( - season) 2024 Influenza Vaccine 02/10/2025 04/06/2013, 03/31/2012 Chronic Controlled Substance User PDMP Review Discontinued 12/21/2019 Medical Devices Implanted Type Area House Mover Helper Device Identifier Shelf Expiration Date Model / Serial / Lot [id number] Al Interbody [id number] - [id number] Implanted:Qty : 1 on 06/02/2023 by Sadi Berry MD at [facility] Cage N/A: Back [employer] LEE 06/15/2027 [id number] / / [id number] Young Spinal 45mm 5.5mm [place] Contour Blt Ti Hex Mis Nonst Lf - [id number] Implanted:Qty : 2 on 06/17/2023 by Sadi Berry MD at [facility] Nail/Young Spine Lumbar [employer] - DIV STRY [id number] / / [id number] Screw Bone Spine [place] 26mm 6mm Btrs Nonst Lf - [id number] Implanted:Qty : 4 on 06/02/2023 by Sadi Berry MD at [facility] Spine N/A: Spine Lumbar [employer] LEE [id number] / / [id number] Screw Bone Spine Vrst 40mm 7.5mm Pa Xtd Tab Fenestrate Nonst - [id number] Implanted:Qty : 4 on 06/17/2023 by Sadi Berry MD at [facility] Spine Spine Lumbar [employer] - DIV STRY [id number] / / [id number] Set Screw Vrst Lmbr One Lvl Nonst - [id number] Implanted:Qty : 4 on 06/17/2023 by Sadi Berry MD at [facility] Spine Spine Lumbar [employer] - DIV STRY [id number] Graft Bone Accell Evo3 Dbm 10ml Putty - [id number] Implanted:Qty : 1 on 06/02/2023 by Sadi Berry MD at [facility] Tissue N/A: Back [employer] 03/09/2024- / [id number] / [id number] Graft Bone Accell Evo3 Dbm 10ml Putty - [id number] Implanted:Qty : 1 on 06/17/2023 by Sadi Berry MD at [facility] Tissue Bilateral : Spine Lumbar [employer] 04/09/2024- 00 / [id number] / [id number] Filler Bone Void 10cc [id number] Btcp Type-1 Collagen Intgr - [id number] Implanted:Qty : 1 on 06/17/2023 by Sadi Berry MD at [facility] Void Filler Bilateral : Spine Lumbar [employer] [id number] 02/06/2025 [id number] / / [id number] 32mm Plate Implanted:Qty : 1 on 06/02/2023 by Sadi Berry MD at [facility] N/A: Spine Lumbar [employer] - DIV STRY [id number] 2 / / Insurance MEDICARE PART A & B [facility] Advance Directives * Full Code (Latest Code Status on File) Date Activated Date Inactivated Comments 06/17/2023 3:31 PM * Full Code Date Activated Date Inactivated Comments 06/17/2023 10:42 AM 06/17/2023 3:31 PM * Full Code Date Activated Date Inactivated Comments 06/02/2023 4:45 PM 06/17/2023 10:04 AM * Full Code Date Activated Date Inactivated Comments 06/02/2023 10:09 AM 06/02/2023 4:45 PM * Full Code Date Activated Date Inactivated Comments 11/10/2018 9:04 PM 06/02/2023 9:59 AM Care Teams Weaving Inspector Relationship Specialty Start Date End Date July Henley MD [address] [place] [address] PCP - General Internal Medicine 03/05/22 Gaviota Monsivais MD Consulting Provider Rheumatology 03/19/17 Nuno Ramesh MD [facility] 05/10/18 Martita De La O MD Consulting Provider Internal Medicine 04/04/19 Tommy Christianson MD [address] [place] [address] Physician Neurology 06/13/21 Dr. Aura Henley [address] [place] [address] Primary Care Provider Internal Medicine 01/09/21
--- OUTSIDE RECORDS SUMMARY | 2024-11-15 13:19 | XMS_ITS | Encounter Summary ---
Author Organization [facility] Address [address] [place] [address] Care Team Providers Care Telephoto Installer Name Role Phone Gaviota Monsivais MD Unavailable [phone] Nuno Ramesh MD Unavailable Unavailable Martita De La O MD Unavailable [phone] Tommy Christianson MD Unavailable July Henley MD Primary Care Provider [phone] Encounter Details Date Type Department Care Team (Late st Contact Info) Description 08/20/2022 Scanned Document [facility] Neurosurgery [address] [phone] Neurosurgery, Scan Social History Tobacco Use Types Packs/Day Years [...] suspected to have Coronavirus/COVID-19? No / Unsure 08/08/2022 7:38 AM EST documented as of this encounter Plan of Treatment Not on file documented as of this encounter Visit Diagnoses Not on filedocumented in this encounter Care Teams Telephoto Installer Relationship Specialty Start Date End Date July Henley MD [address] [place] [address] PCP - General Internal Medicine 03/05/22 Gaviota Monsivais MD Consulting Provider Rheumatology 03/19/17 Nuno Ramesh MD [facility] 05/10/18 Martita De La O MD Consulting Provider Internal Medicine 04/04/19 Tommy Christianson MD [address] [place] [address] Physician Neurology 06/13/21 Dr. Aura Henley [address] [place] [address] Primary Care Provider Internal Medicine 01/09/21 documented as of this encounter
--- OUTSIDE RECORDS SUMMARY | 2024-11-15 13:19 | XMS_ITS | Encounter Summary ---
Author Organization [facility] Address [address] [place] [address] Care Team Providers Care Adjunct Instructor Name Role Phone Agapito Garima Serina BRANNON Unavailable + Abbie Jeffery MD Unavailable Pcp, No Primary Care Provider UnavailGaviota Post MD Unavailable [phone] Pcp, No Primary Care Provider Unavailabl Nuno Hernandez MD Unavailable Unavailable System, Provider Not In Primary Care Provider Un available Martita De La O MD Unavailable [phone] Tamiko Kent APRN Unavailable [phone] Pcp, No Primary Care Provider UnavailTommy Valladaers MD Unavailable [phone] July Henley MD Primary Care Provider Encounter Details Date Type Department Care Team (Late st Contact Info) Description 12/17/2016 Scanned Document [facility] Neurology [place] 35 [facility] [address] [place] [address] Tommy Christianson MD 35 [facility] [address] [place] [address] Social History Tobacco Use Types Packs/Day Years [...] on filedocumented in this encounter Care Teams Adjunct Instructor Relationship Specialty Start Date End Date Pcp, No PCP - General General Medicine 12/01/16 11/04/17 Pcp, No PCP - General General Medicine 11/05/17 11/03/18 System, Provider Not In PCP - General 11/04/18 01/08/21 Tamiko Kent APRN [address] [place] [address] PCP - MSSP Attributed 07/13/19 0 Pcp, No PCP - General General Medicine 06/13/21 03/04/22 July Henley MD [address] [place] [address] PCP - General Internal Medicine 03/05/22 Garima Altman DO Consulting Provider Rheumatology 12/01/16 03/18/17 Abbie Jeffery MD Consulting Provider Physical Medicine and Rehabilitation 12/01/16 04/03/19 Gaviota Monsivais MD Consulting Provider Rheumatology 03/19/17 Nuno Ramesh MD Endocrinology 05/10/18 Martita De La O MD Consulting Provider Internal Medicine 04/04/19 Tommy Christianson MD [address] [place] [address] Physician Neurology 06/13/21 Dr. Aura Henley [address] [place] [address] Primary Care Provider Internal Medicine 01/09/21 documented as of this encounter
--- OUTSIDE RECORDS SUMMARY | 2024-11-15 13:19 | XMS_ITS | Encounter Summary ---
Author Organization [facility] Address [address] [place] [address] Care Team Providers Care Pipe And Boiler Covers Supervisor Name Role Phone Agapito Garima Serina BRANNON Unavailable + Abbie Jeffery MD Unavailable [phone] Pcp, No Primary Care Provider UnavailGaviota Post MD Unavailable [phone] Pcp, No Primary Care Provider Unavailabl Nuno Hernandez MD Unavailable Unavailable System, Provider Not In Primary Care Provider Un available Martita De La O MD Unavailable [phone] Tamiko Kent APRN Unavailable [phone] Pcp, No Primary Care Provider UnavailTommy Valladares MD Unavailable [phone] July Henley MD Primary Care Provider [phone] Encounter Details Date Type Department Care Team (Late st Contact Info) Description 12/17/2016 Scanned Document [facility] Neurology [place] 35 [facility] [address] [place] [address] Tommy Christianson MD 35 [facility] [address] [place] [address] Social History Tobacco Use Types Packs/Day Years [...] on filedocumented in this encounter Care Teams Pipe And Boiler Covers Supervisor Relationship Specialty Start Date End Date Pcp, No PCP - General General Medicine 12/01/16 11/04/17 Pcp, No PCP - General General Medicine 11/05/17 11/03/18 System, Provider Not In PCP - General 11/04/18 01/08/21 Tamiko Kent APRN [address] [place] [address] PCP - MSSP Attributed 07/13/19 0 Pcp, No PCP - General General Medicine 06/13/21 03/04/22 July Henley MD [address] [place] [address] PCP - General Internal Medicine 03/05/22 Garima Altman DO Consulting Provider Rheumatology 12/01/16 03/18/17 Abbie Jeffery MD Consulting Provider Physical Medicine and Rehabilitation 12/01/16 04/03/19 Gaviota Monsivais MD Consulting Provider Rheumatology 03/19/17 Nuno Ramesh MD Endocrinology 05/10/18 Martita De La O MD Consulting Provider Internal Medicine 04/04/19 Tommy Christianson MD [address] [place] [address] Physician Neurology 06/13/21 Dr. Aura Henley [address] [place] [address] Primary Care Provider Internal Medicine 01/09/21 documented as of this encounter
--- OUTSIDE RECORDS SUMMARY | 2024-11-15 13:19 | XMS_ITS | Encounter Summary ---
Author Organization [facility] Address [address] [place] [address] Care Team Providers Care Developmental Writing Instructor Name Role Phone Abbie Jeffery MD Unavailable [phone] Pcp, No Primary Care Provider UnavailGaviota Post MD Unavailable [phone] Pcp, No Primary Care Provider Unavailabl Nuno Hernandez MD Unavailable Unavailable System, Provider Not In Primary Care Provider Un available Martita De La O MD Unavailable [phone] Tamiko Kent APRN Unavailable [phone] Pcp, No Primary Care Provider Unavailabl Tommy Carolina MD Unavailable July Henley MD Primary Care Provider [phone] Encounter Details Date Type Department Care Team (Late st Contact Info) Description 07/22/2017 Scanned Document [facility] Neurology [place] 35 [facility] [address] [place] [address] Tommy Christianson MD 35 [facility] [address] [place] [address] Social History Tobacco Use Types Packs/Day Years [...] on filedocumented in this encounter Care Teams Developmental Writing Instructor Relationship Specialty Start Date End Date Pcp, No PCP - General General Medicine 12/01/16 11/04/17 Pcp, No PCP - General General Medicine 11/05/17 11/03/18 System, Provider Not In PCP - General 11/04/18 01/08/21 Tamiko Kent, PHONOGRAPH CARTRIDGE ASSEMBLER [address] [place] [address] PCP - MSSP Attributed 07/13/19 0 Pcp, No PCP - General General Medicine 06/13/21 03/04/22 July Henley MD [address] [place] [address] PCP - General Internal Medicine 03/05/22 Abbie Jeffery MD Consulting Provider Physical Medicine and Rehabilitation 12/01/16 04/03/19 Gaviota Monsivais MD Consulting Provider Rheumatology 03/19/17 Nuno Ramesh MD Endocrinology 05/10/18 Martita De La O MD Consulting Provider Internal Medicine 04/04/19 Tommy Christianson MD [address] [place] [address] Physician Neurology 06/13/21 Dr. Aura Henley [address] [place] [address] Primary Care Provider Internal Medicine 01/09/21 documented as of this encounter
--- OUTSIDE RECORDS SUMMARY | 2024-11-15 13:19 | XMS_ITS | Encounter Summary ---
Author Organization [facility] Address [address] [place] [address] Care Team Providers Care Cigar Head Piercer Name Role Phone Gaviota Monsivais MD Unavailable [phone] Nuno Ramesh MD Unavailable Unavailable Martita De La O MD Unavailable [phone] Tommy Christianson MD Unavailable July Henley MD Primary Care Provider Encounter Details Date Type Department Care Team (Late st Contact Info) Description 09/08/2022 Scanned Document [facility] Neurosurgery [address] [phone] Social History Tobacco Use Types Packs/Day Years [...] on filedocumented in this encounter Care Teams Cigar Head Piercer Relationship Specialty Start Date End Date July Henley MD [address] [place] [address] PCP - General Internal Medicine 03/05/22 Gaviota Monsivais MD Consulting Provider Rheumatology 03/19/17 Nuno Ramesh MD [facility] 05/10/18 Martita De La O MD Consulting Provider Internal Medicine 04/04/19 Tommy Christianson MD [address] [place] [address] Physician Neurology 06/13/21 Dr. [address] [address] Primary Care Provider Internal Medicine 01/09/21 documented as of this encounter
--- OUTSIDE RECORDS SUMMARY | 2024-11-15 13:19 | XMS_ITS | Encounter Summary ---
Author Organization [facility] Address [address] [place] [address] Care Team Providers Care Motor Vehicles Inspector Name Role Phone Abbie Jeffery MD Unavailable Pcp, No Primary Care Provider UnavailGaviota Post MD Unavailable [phone] Pcp, No Primary Care Provider Unavailabl Nuno Hernandez MD Unavailable Unavailable System, Provider Not In Primary Care Provider Un available Martita De La O MD Unavailable [phone] Tamiko Kent APRN Unavailable [phone] Pcp, No Primary Care Provider Unavailabl Tommy Carolina MD Unavailable [phone] July Henley MD Primary Care Provider Encounter Details Date Type Department Care Team (Late st Contact Info) Description 09/07/2017 Scanned Document [facility] Neurology [place] 35 [facility] [address] [place] [address] Tommy Christianson MD 35 [facility] [address] [place] [address] Social History Tobacco Use Types Packs/Day Years [...] on filedocumented in this encounter Care Teams Motor Vehicles Inspector Relationship Specialty Start Date End Date Pcp, No PCP - General General Medicine 12/01/16 11/04/17 Pcp, No PCP - General General Medicine 11/05/17 11/03/18 System, Provider Not In PCP - General 11/04/18 01/08/21 Tamiko Kent, CVT RN [address] [place] [address] PCP - MSSP Attributed 07/13/19 0 Pcp, No PCP - General General Medicine 06/13/21 03/04/22 July Henley MD [address] [place] [address] PCP - General Internal Medicine 03/05/22 Abbie Jeffery MD Consulting Provider Physical Medicine and Rehabilitation 12/01/16 04/03/19 Gaviota Monsivais MD Consulting Provider Rheumatology 03/19/17 Nuno Ramesh MD Endocrinology 05/10/18 Martita De La O MD Consulting Provider Internal Medicine 04/04/19 Tommy Christianson MD [address] [place] [address] Physician Neurology 06/13/21 Dr. Aura Henley [address] [place] [address] Primary Care Provider Internal Medicine 01/09/21 documented as of this encounter
--- OUTSIDE RECORDS SUMMARY | 2024-11-15 13:19 | XMS_ITS | Encounter Summary ---
Author Organization [facility] Address [address] [place] [id number] Care Team Providers Care Loss Prevention/Safety District Manager Name Role Phone Abbie Jeffery MD Unavailable Pcp, No Primary Care Provider UnavailGaviota Post MD Unavailable [phone] Pcp, No Primary Care Provider Unavailabl Nuno Hernandez MD Unavailable Unavailable System, Provider Not In Primary Care Provider Un available Martita De La O MD Unavailable [phone] Tamiko Kent APRN Unavailable [phone] Pcp, No Primary Care Provider Unavailabl Tommy Carolina MD Unavailable July Henley MD Primary Care Provider [phone] Encounter Details Date Type Department Care Team (Late st Contact Info) Description 07/08/[address] [facility] Neurology [place] [address] [facility] [address] [place] [address] Tommy Christianson MD [address] [facility] [address] [place] [address] Social History Tobacco Use Types Packs/Day Years [...] on filedocumented in this encounter Care Teams Loss Prevention/Safety District Manager Relationship Specialty Start Date End Date Pcp, No PCP - General General Medicine 12/01/16 11/04/17 Pcp, No PCP - General General Medicine 11/05/17 11/03/18 System, Provider Not In PCP - General 11/04/18 01/08/21 Tamiko Kent, HARDWARE SALES ASSISTANT [address] [place] [address] PCP - MSSP Attributed 07/13/19 0 Pcp, No PCP - General General Medicine 06/13/21 03/04/22 July Henley MD [address] [place] [id number] PCP - General Internal Medicine 03/05/22 Abbie Jeffery MD Consulting Provider Physical Medicine and Rehabilitation 12/01/16 04/03/19 Gaviota Monsivais MD Consulting Provider Rheumatology 03/19/17 Nuno Ramesh MD Endocrinology 05/10/18 Martita De La O MD Consulting Provider Internal Medicine 04/04/19 Tommy Christianson MD [address] [place] [address] Physician Neurology 06/13/21 Dr. Aura Henley [address] [place] [address] Primary Care Provider Internal Medicine 01/09/21 documented as of this encounter
--- OUTSIDE RECORDS SUMMARY | 2024-11-15 13:19 | XMS_ITS | Encounter Summary ---
Author Organization [facility] Address [address] [place] [address] Care Team Providers Care Dietary Manager Name Role Phone Gaviota Monsivais MD Unavailable [phone] Nuno Ramesh MD Unavailable Unavailable Martita De La O MD Unavailable [phone] Pcp, No Primary Care Provider UnavailTommy Valladares MD Unavailable [phone] July Henley MD Primary Care Provider Encounter Details Date Type Department Care Team (Late st Contact Info) Description 01/18/2021 Scanned Document [facility] Neurology [address] [place] [phone] Lyle Pennington APRN [address] [place] [address] Social History Tobacco Use Types [...] on filedocumented in this encounter Care Teams Dietary Manager Relationship Specialty Start Date End Date Pcp, No PCP - General General Medicine 06/13/21 03/04/22 July Henley MD [address] [place] [id number] PCP - General Internal Medicine 03/05/22 Gaviota Monsivais MD Consulting Provider Rheumatology 03/19/17 Nuno Ramesh MD Endocrinology 05/10/18 Martita De La O MD Consulting Provider Internal Medicine 04/04/19 Tommy Christianson MD [address] [place] [address] Physician Neurology 06/13/21 Dr. Aura Henley [address] [place] [id number] Primary Care Provider Internal Medicine 01/09/21 documented as of this encounter
--- OUTSIDE RECORDS SUMMARY | 2024-11-15 13:19 | XMS_ITS | Encounter Summary ---
Author Organization [facility] Address [address] [place] [address] Care Team Providers Care Tool Repairer Bench Name Role Phone Gaviota Monsivais MD Unavailable [phone] Nuno Ramesh MD Unavailable Unavailable Martita De La O MD Unavailable [phone] Pcp, No Primary Care Provider Unavailsandra e Tommy Christianson MD Unavailable July Henley MD Primary Care Provider Encounter Details Date Type Department Care Team (Late st Contact Info) Description 01/15/2022 Scanned Document [facility] Neurology [address] [place] [phone] Tommy Christianson MD [address] [place] [address] [address] [place] [address] Social History Tobacco Use Types Packs/Day Years [...] suspected to have Coronavirus/COVID-19? No / Unsure 12/18/2021 1:32 PM EDT documented as of this encounter Plan of Treatment Not on file documented as of this encounter Visit Diagnoses Not on filedocumented in this encounter Care Teams Tool Repairer Bench Relationship Specialty Start Date End Date Pcp, No PCP - General General Medicine 06/13/21 03/04/22 July Henley MD [address] [place] [id number] PCP - General Internal Medicine 03/05/22 Gaviota Monsivais MD Consulting Provider Rheumatology 03/19/17 Nuno Ramesh MD Endocrinology 05/10/18 Martita De La O MD Consulting Provider Internal Medicine 04/04/19 Tommy Christianson MD [address] [place] [address] Physician Neurology 06/13/21 Dr. Aura Henley [address] [place] [address] Primary Care Provider Internal Medicine 01/09/21 documented as of this encounter
--- OUTSIDE RECORDS SUMMARY | 2024-11-15 13:19 | XMS_ITS | Clinical Summary ---
Author Organization [employer] Address [address] [place] [address] Care Team Providers Care Pbx Technician Name Role Phone July Henley MD Primary Care Provider [phone] Allergies No known active allergies Medications lisinopril-hydr oCHLOROthiazide 20-25 MG tablet TAKE 1 TABLET BY MOUTH EVERY DAY 90 tablet 2 3 Active Drysol 20 % external solution APPLY EVERY OTHER DAY TO ARMPITS 35 mL 11 3 Active traMADol (Ultram) 50 MG tablet 4 Active tacrolimus (Protopic) 0.1 % ointment APPLY TOPICALLY 2 TIMES A DAY NEEDED 2 Active hydroxychloroqu ine (Plaquenil) 200 MG tablet Take 1 tablet by mouth in the morning. 3 Active cholecalciferol (Vitamin D-3) 50 MCG (2000 UT) capsule Take 2,000 Units by mouth in the morning. 5 Active baclofen (Lioresal) 10 MG tablet Take 10 mg by mouth 3 times daily. 3 Active lidocaine (Lidoderm) 5 % patch Apply 1 patch topically in the morning. 30 patch 3 4 Active clotrimazole (Lotrimin) 1 % cream APPLY TWICE A DAY TO AFFECTED AREA OF ABDOMINAL SKIN . 30 g 1 4 Active cyclobenzaprine (Flexeril) 10 MG tablet TAKE 1 TABLET BY MOUTH EVERY EVENING AT BEDTIME NEEDED FOR MUSCLE SPASMS Active meloxicam (Mobic) 7.5 MG tablet Take 7.5 mg by mouth if needed each day. 4 Active ibuprofen 800 MG tabletIndicatio ns:Pain TAKE 1 TABLET BY MOUTH EVERY EIGHT HOURS NEEDED FOR PAIN NEEDED 90 tablet 3 4 Active traZODone (Desyrel) 50 MG tablet TAKE 1 TABLET BY MOUTH AT BEDTIME 30 tablet 5 5 Active Active Problems Problem Noted Date Diagnosed Date Dysuria 12/28/2023 Assessment & Plan (12/28/2023 4:00 PM EDT): Prescribing Macrobid for symptoms. Ordering urinalysis and culture for further evaluation. Relevant Medications Nitrofurantoin, Macrocrystal-Monohydrate, (Macrobid) 100 MG Capsule. Mass of chest wall, left 12/28/2023 Assessment & Plan (12/28/2023 4:01 PM EDT): Ordering US and CT of neck and head for further investigation of mass. Ordering Lab work for further evaluation. Other fatigue 12/28/2023 Fusion of lumbosacral spine 08/20/2023 Primary hypertension 05/22/2023 Assessment & Plan (05/22/2023 9:28 AM EST): Controlled, on lisinopril/hctz, no changes needed, keep low sodium diet Primary insomnia 05/22/2023 Assessment & Plan (05/22/2023 9:28 AM EST): Will discontinue amitriptyline and start on ambien Pre-op exam 05/22/2023 Assessment & Plan (05/22/2023 9:33 AM EST): Patient denied chest pain/shortness of breath. She is active Mets>4. Had stress echocardiogram done on 2019 which was negative for ischemia. EKG reviewed qtc slightly prolonged (493), avoid medications that prolongue qt during surgery, will discontinue amitriptyline because she feels is not working anymore and this should also help lowering her Qt. Labs reviewed were unremarkable. The day of the surgery she can take her blood pressure medications. Told to hold/avoid ibuprofen (nsaids), any OTC remedies for 7 days prior to surgery. She has no contraindication for surgery, she is cleared for procedure. Encounters Date Type Department Care Team Description 11/10/2024 11:15 AM EDT Telemedicine [facility] [address] [place] [address] Sukhi Davey MD Right hip pain (Primary Dx) 11/10/2024 Travel 11/07/2024 Telephone [facility] [address] [place] [address] July Henley MD 09/05/2024 Refill [facility] [address] [place] [address] July Henley MD from Last 3 Months Immunizations Name Administration Dates Next Due Hep B, adult 02/15/2015 Influenza, Split (incl. purified surface antigen ) 04/06/2013,03/31/2012 Social History Tobacco Use Types Packs/Day Years Used Date Smoking Tobacco: Never Passive Smoke Exposure: Never Smokeless Tobacco: Never Tobacco Cessation:Counseling Given: Not Answered Depression Answer Date Recorded Patient Health Questionnaire-9 [...] Orientation Straight 05/12/2022 10 :17 AM EDT Last Filed Vital Signs Vital Sign Reading Time Taken Comments Blood Pressure 132/77 01/29/2024 8:59 AM EDT Pulse 76 01/29/2024 8:59 AM EDT Temperature 36.6 ??C (97.8 ??F) 01/29/2024 8:59 AM ED T Respiratory Rate 18 01/29/2024 8:59 AM EDT Oxygen Saturation 98% 01/29/2024 8:59 AM EDT Inhaled Oxygen Concentration - - Weight 77.7 kg (171 lb 3.2 oz) 01/29/2024 8:59 A M EDT Height 162.6 cm (5' 4 ) 01/29/2024 8:59 AM EDT Body Mass Index 29.39 01/29/2024 8:59 AM EDT Plan of Treatment Health Maintenance Due Date Last Done Comments CT Colonography 1965 Colonoscopy 1965 FIT 1965 FOBT 1965 HIV Screening 1965 Sigmoidoscopy 1965 Alcohol/Substance Use Screening 1977 Hepatitis C Screening 10/03/1983 DTaP/Tdap/Td Vaccines (1 - Tdap) 1984 Hepatitis B Vaccines (2 of 3 - 19+ 3-dose series) 03/15/2015 02/15/2015 Pneumococcal Vaccine: 50+ Years (1 of 1 - PCV) 10/03/2015 Zoster Vaccines (1 of 2) 10/03/2015 COVID-19 Vaccine (2023-2 5 season) 2024 Influenza Vaccine (#1) 2024 3, 03/31/2012 Mammogram 05/07/2024 05/07/2022, 06/28/2020, 06/28/2020 Tobacco Screening 08/20/2024 08/20/2023 SDOH Screening 01/25/2025 01/26/2024 Depression Screening 01/28/2025 01/29/2024, 01/29/2024 Pap Smear 08/20/2026 08/20/2023, 08/20/2023, 04/22/2022 Colorectal Cancer Screening 09/12/2026 FIT DNA/Cologuard 09/12/2026 09/13/2023 Cervical Cancer Screening 04/22/2027 HPV/Cotest 04/22/2027 04/22/2022, 2016 Lipid Panel 04/29/2027 04/29/2022, 03/08/2020 RSV Patients and Patients Aged 60 years or older (1 - 1-dose 75+ series) 2040 HIB Vaccines Aged Out No longer eligi [...] patient's age to complete this topic Meningococcal Vaccine Aged Out No nasir nava eligible based on patient's age to complete this topic RSV under 20 months Aged Out No longe r eligible based on patient's age to complete this topic Rotavirus Vaccines Aged Out No longer eligible based on patient's age to complete this topic Procedures Procedure Name Priority Date/Time Associated Diagnosis Comments XR HIP 2 OR 3 VIEWS RIGHT Routine 11/15/2024 11:42 AM EDT Right hip pain LAB COLOGUARD?? COLON CANCER SCREEN Routine 09/13/2023 8:00 AM EST Colon cancer screening PAP SMEAR Routine 08/20/2023 10:20 AM EST Encounter for gynecological examination (general) (routine) without abnormal findings MAMMOGRAM GENERIC Routine 05/07/2022 9:0 0 AM EDT LIPID PANEL, STANDARD Routine 04/29/2022 10:16 AM EDT THINPREP IMAGING PAP AND HPV MRNA E6/E7, WITH CT/NG, TRICHOMONAS Routine 04/22/2022 12:00 AM EDT from Last 3 Months or Most Recently Relevant to Health Maintenance Results * XR Hip 2 or 3 Views Right (11/15/2024 11:42 AM EDT) Anatomical Region Laterality Modality Lower Extremities, Hip Right Radiograp hic Imaging 11/15/2024 11:4 2 AM EDT Narrative 11/15/2024 12:08 PM EDT ? [facility] ?[address] ?[place] [address] ?XRay Report ? Signed ? Patient: Melissa Bunn ?MR#: [id number] ? : 1965 ?Acct:[id number] ? Age/Sex: 59 / F ?ADM Date: 11/15/24 ? Loc: HO.XRAY ? Attending Dr: Sukhi Tyler MD ? Ordering Physician: Sukhi Davey MD ?? Date of Service: 11/15/24 ?? Procedure(s): XR hip RT min 2V ?? Accession Number(s): [id number] ? cc: July Henley MD; Sukhi Davey [...] lumbar spine ?? no included in the mjcra-nl-[id number]. Degenerative changes in the symphysis ?? pubis. ? XR/XR hip RT min 2V ?? IMPRESSION: ?? Mild osteoarthrosis, right hip. ? Electronically signed by: ??James Mendes MD ??11/15/2024 12:05 PM ?? EDT RP ? Dictated By: ?James Fabian MD ? Signed By: ?<Electronically signed by James Swan MD in OV> ? 11/15/24 1205 ? DD/ 1142 ? TD/TT: 11/15/24 1159 ? Scientist: ? Procedure Note Donotuseinterpreter, Image - 11/15/[address] [address] XRay Report Signed Patient: Paul Bunn#: [id number] : 1965Acct:[id number] Age/Sex: 59 / FADM Date: 11/15/24 Loc: HO.XRAY Attending Dr: Sukhi Tyler MD Ordering Physician: Sukhi Davey MD Date of Service: 11/15/24 Procedure(s): XR hip RT min 2V Accession Number(s): [id number] cc: July Henley MD; Sukhi Davey MD EXAMINATION: XR HIP, RIGHT CLINICAL INFORMATION: right hip pain COMPARISON: None available. TECHNIQUE: Two views of the right hip. FINDINGS: No acute cortical disruption or malalignment. Mild sclerosis and the articular surface of the right acetabulum. Osteopenia versus osteoporosis. Metallic hardware in the upper sacrum lower lumbar spine no included in the nyuly-th-[id number]. Degenerative changes in the symphysis pubis. XR/XR hip RT min 2V IMPRESSION: Mild osteoarthrosis, right hip. Electronically signed by: James Mendes MD 11/15/2024 12:05 PM EDT Dictated By: James Fabian MD Signed By: <Electronically signed by James Swan MDin OV> 11/15/24 1205 DD/ 1142 TD/TT: 11/15/24 1159 Scientist: us Sukhi Tyler MD IMG XR PROCEDURES Final Result * Cologuard?? colon cancer screening (09/13/2023 8:00 AM EST) Cologuard Result Negative Negative 09/18/19 24 1:12 AM EST [facility] (CLIA #:[id number]) Comment: NEGATIVE TEST RESULT. A negative Cologuard result indicates a low likelihood that a colorectal cancer (CRC) or advanced adenoma (adenomatous polyps with more advanced pre-malignant features) ??is present. The chance that a person with a negative Cologuard test has a colorectal cancer is less than 1 in 1500 (negative predictive value >99.9%) or has an ??advanced adenoma is less than ??5.3% (negative predictive value 94.7%). These data are based on a prospective cross-sectional study of 10,000 individuals at average risk for colorectal cancer who were screened with both Cologuard and colonoscopy. (Christiano Farah al, N Engl J Med 2014;370(14):1286- 1297) The normal value (reference range) for this assay is negative. COLOGUARD RE-SCREENING RECOMMENDATION: Periodic colorectal cancer screening is an important part of preventive healthcare for asymptomatic individuals at average risk for colorectal cancer. ??Following a negative Cologuard result, the English Cancer Society and U.S. Multi-Society Task Force screening guidelines recommend a Cologuard re-screening interval of 3 years. References: English Cancer Society Guideline for Colorectal Cancer Screening: https://www.cancer.org/cancer/ctzff-apamjd-jxcmcr/tzcxwbqyt-akhhgfzhc-jynxjzt/ac s-rec ommendations.html.; Khalif DK, Fang ABDI, John GibbsK, Colorectal Cancer Screening: Recommendations for Physicians and Patients from the U.S. Multi-Society Task Force on Colorectal Cancer Screening , Am J Gastroenterology 2017; 112:4695-6410. TEST DESCRIPTION: Composite algorithmic analysis of stool DNA-biomarkers with hemoglobin immunoassay. ?? Quantitative values of individual biomarkers are not reportable and are not associated with individual biomarker result reference ranges. Cologuard is intended for colorectal cancer screening of adults of either sex, 45 years or older, who are at average-risk for colorectal cancer (CRC). Cologuard has been approved for use by the U.S. FDA. The performance of Cologuard was established in a cross sectional study of average-risk adults aged 50-84. Cologuard performance in patients ages 45 to 49 years was estimated by sub-group analysis of near-age groups. Colonoscopies performed for a positive result may find as the most clinically significant lesion: colorectal cancer [4.0%], advanced adenoma (including sessile serrated polyps greater than or equal to 1cm diameter) [20%] or non- advanced adenoma [31%]; or no colorectal neoplasia [45%]. These estimates are derived from a prospective cross-sectional screening study of 10,000 individuals at average risk for colorectal cancer who were screened with both Cologuard and colonoscopy. (Christiano Farah al, N Engl J Med 2014;370(14):9738-3511.) Cologuard may produce a false negative or false positive result (no colorectal cancer or precancerous polyp present at colonoscopy follow up). A negative Cologuard test result does not guarantee the absence of CRC or advanced adenoma (pre-cancer). The current Cologuard screening interval is every 3 years. (English Cancer Society and U.S. Multi-Society Task Force). Cologuard performance data in a 10,000 patient pivotal study using colonoscopy as the reference method can be accessed at the following location: www.DeliveryChef.in/results. Additional description of the Cologuard test process, warnings and precautions can be found at www.[employer].com. Stool specimen (specimen) 09/13/2023 8:00 AM EST 09/15/2023 10:52 AM EST July Henley MD LAB MOLECULAR DIAGNOSTICS ORD ERABLES Final Result [facility] (CLIA #:[id number]) [place] [address], * Pap Smear (08/20/2023 10:20 AM EST) Swab Cervical swab / Unknown 08/20/2023 10:20 AM EST 08/21/2023 8:30 AM EST [facility] - 09/02/2023 3:25 PM EST ----- ------- Name: Melissa Bunn ? Age/Sex: 57/F ? : 1965 Unit#: [id number] ?? Attend Dr: July Henley MD ?Re08/20/23 ?Status: DEP REF ? Location: HO.CHCLNP ? Disch: ? ----- ------- SPEC : [id number] ? RECD: 08/21/23 ? STATUS: ??SOUT ? REQ NUM: [id number] ? BING: 08/20/23-0 ? SUBM DR: July Henley MD ? ENTERED: ??08/21/23-1115 ?SP TYPE: Pap Smr ?OTHR : ? ORDERED: ??Pap Smear ? Interpretation ?? Satisfactory for evaluation. ?? Moderate inflammation. ?? Negative for intraepithelial lesion or malignancy. ?Clinical Information LMP: 2020, Postmenopausal Previous PAP test: ??Unknown date/findings ? Material Received ?? ThinPrep-Cervical ----- ------- Signed (signature on file) ZORAIDA Garnica (ASCP) 09/02/23 1525 ? ----- ------- ? END OF REPORT ? us July Henley MD LAB CYTOLOGY ORDERABLES Final Result [facility] [address] [place] [address] [phone] * Mammography Report 1 (05/07/2022 9:00 AM EDT) Anatomical Region Laterality Modality Breast Bilateral Mammography 05/07/2022 9:00 AM EDT Narrative 05/07/2022 12:29 PM EDT Refer to the Notes tab for result details [facility] Procedure: Mammography Report 1 Procedure Note ProviderEdwige MD - 10/05/2022 Refer to the Notes tab for result details [facility] Procedure: Mammography Report 1 July Henley MD IMG BI PROCEDURES Final Resul t * (ABNORMAL) LIPID PANEL, STANDARD (04/29/2022 10:16 AM EDT) Chol/HDLC Ratio 4.5 <5.0 (calc) [facility] Cholesterol, Total 244(H) <200 mg/dL [facility] HDL Cholesterol 54 > OR = 50 mg/dL [facility] LDL Cholesterol 162(H) mg/dL (calc) [facility] Comment: Reference range: <100 ?? Desirable range <100 mg/dL for primary prevention; ?? <70 mg/dL for patients with CHD or diabetic patients ?? with > or = 2 CHD risk factors. ?? LDL-C is now calculated using the Justin-Oscar ?? calculation, which is a validated novel method providing ?? better accuracy than the Friedewald equation in the ?? estimation of LDL-C. ?? Justin SS et al. HEIDI. 2013;310(19): 3887-1176 ?? (http://education.[employer]/faq/NYB873) Non-HDL Cholesterol 190(H) <130 mg/dL (calc) [facility] Comment: For patients with diabetes plus 1 major ASCVD risk ?? factor, treating to a non-HDL-C goal of <100 mg/dL ?? (LDL-C of <70 mg/dL) is considered a therapeutic ?? option. Triglycerides 138 <150 mg/dL [facility] 04/29/2022 10:1 6 AM EDT us July Henley MD LAB BLOOD ORDERABLES Final Re sult [facility] * (ABNORMAL) THINPREP TIS PAP AND HPV mRNA E6/E7, CT/NG, TRICH (04/22/2022 12:00 AM EDT) Chlamydia trachomatis RNA, TMA, Urogenital NOT DETECTED NOT DETECTED [facility] Clinical Information: None given [facility] COMMENT SEE COMMENT PANCHITO [facility] Comment: The analytical performance characteristics of this assay, when used to test SurePath(TM) specimens have been determined by [facility]. The modifications have not been cleared or approved by the FDA. This assay has been validated pursuant to the CLIA regulations and is used for clinical purposes. ?? For additional information, please refer to https://Yieldbot.[employer]/faq/BPU947 (This link is being provided for information/ educational purposes only.) ?? COMMENT SEE COMMENT PANCHITO [facility] Comment: EXPLANATORY NOTE: ? The Pap is a screening test for cervical cancer. It is ?? not a diagnostic test and is subject to false negative ?? and false positive results. It is most reliable when a ?? satisfactory sample, regularly obtained, is submitted ?? with relevant clinical findings and history, and when ?? the Pap result is evaluated along with historic and ?? current clinical information. ?? COMMENT: This Pap test has been evaluated with computer assisted technology. CONVERTED [facility] Slot Shift Manager: SEE COMMENT [facility] Comment: ALS, CT(ASCP) CT screening location: [address] ??[address] HPV nRNA E6/E7 Detected(A) Not Detected CONVERTED [facility] Comment: Methodology: Computer Sciences Professor-Mediated Amplification This assay detects E6/E7 viral messenger RNA (mRNA) from 14 high-risk HPV types (16,18,31,33,35,39,45,51,52,56,58,59,66,68). ? Cervical sources are required for HPV testing. If a vaginal source from a patient who has had a total hysterectomy with removal of cervix was ?? submitted, please contact the testing laboratory for alternative testing options. ?? For additional information, please refer to http://Yieldbot.[employer]/faq/YOC858n8 (This link if provided for information/ educational purposes only.) Interpretation/Re sult: Negative for intraepithelial lesion or malignancy. [facility] LMP: NONE GIVEN [facility] Neisseria gonorrhoeae RNA, TMA, Urogenital NOT DETECTED NOT DETECTED [facility] Prev. BX: NONE GIVEN [facility] Prev. PAP: NONE GIVEN CONVERTE D [facility] Review Slot Shift Manager: SEE COMMENT [facility] Comment: BK,CT(ASCP) CT screening location: [address] SOURCE: None given [facility] Statement Of Adequacy: SEE COMMENT [facility] Comment: Satisfactory for evaluation. Endocervical/transformation zone component absent. Age and/or menstrual status not provided Trichomonas vaginalis, QL, TMA, PAP Vial NOT DETECTED NOT DETECTED [facility] Comment: The analytical performance characteristics of this assay have been determined by [facility]. The modifications have not been cleared or approved by the FDA. This assay has been validated pursuant to the CLIA regulations and is used for clinical purposes. ?? For additional information, please refer to http://education.[employer]/ faq/Trichomonastma (This link is being provided for information/ educational purposes only.) ?? 04/22/2022 Radha COLEY LAB PATHOLOGY ORDERABLES Final Result [facility] from Last 3 Months or Most Recently Relevant to Health Maintenance Insurance [facility] * Guarantor: Melissa Bunn Account Type Relation to Patient Date of Phone Billing Address Personal/Family Self [address] [place] Care Teams Pbx Technician Relationship Specialty Start Date End Date July Henley MD [address] [place] [address] JOSE [place] [phone] PCP - General Family Medicine 03/30/13
--- OUTSIDE RECORDS SUMMARY | 2024-11-15 13:19 | XMS_ITS | Encounter Summary ---
Author Organization [facility] Address [address] [place] [address] Care Team Providers Care Ear Nose Throat Physician Name Role Phone Gaviota Monsivais MD Unavailable [phone] Nuno Ramesh MD Unavailable Unavailable Martita De La O MD Unavailable [phone] Tommy Christianson MD Unavailable [phone] July Henley MD Primary Care Provider [phone] Encounter Details Date Type Department Care Team (Late st Contact Info) Description 05/29/2023 Scanned Document [facility] Neurosurgery [address] [phone] Social History Tobacco Use Types Packs/Day Years Used Date Smoking Tobacco: Former Cigarettes 978 2007 Smokeless Tobacco: Never Alcohol Use Standard Drinks/Week Comments Yes 2 (1 standard drink = 0.6 oz pur e alcohol) approx monthly AUDIT-C Answer Date Recorded Q1: How often do you have a drink containing alc ohol? Monthly or less 05/26/2023 Q2: How many drinks containi ng alcohol do you have on a typical day when you are drinking? 1 or 2 05/26/2023 Q3: How often do you have si x or more drinks on one occasion? Never 05/26/2023 PHQ-2 Answer Date Recorded PHQ-2 Total Score 0 06/02/2023 Comments No Sex and Gender Information Value [...] on filedocumented in this encounter Care Teams Ear Nose Throat Physician Relationship Specialty Start Date End Date July Henley MD [address] [place] [id number] PCP - General Internal Medicine 03/05/22 Gaviota Monsivais MD Consulting Provider Rheumatology 03/19/17 Nuno Ramesh MD Endocrinology 05/10/18 Martita De La O MD Consulting Provider Internal Medicine 04/04/19 Tommy Christianson MD [address] [place] [address] Physician Neurology 06/13/21 Dr. Aura Henley [address] [place] [address] Primary Care Provider Internal Medicine 01/09/21 documented as of this encounter
--- OUTSIDE RECORDS SUMMARY | 2024-11-15 13:19 | XMS_ITS | Encounter Summary ---
Author Organization [employer] Address [address] [facility] [address] [place] [address] Care Team Providers Care Senior Etl Developer Name Role Phone July Henley MD Primary Care Provider [phone] Reason for Visit * Reason Comments Med Refill Encounter Details Date Type Department Care Team ([facility] Contact Info) Description 07/11/2024 Refill [facility]ED[facility] [address] [place], [place] [phone] July Henley MD [address] [place] [address] Social History Tobacco Use Types Packs/Day Years [...] documented as of this encounter Care Teams Senior Etl Developer Relationship Specialty Start Date End Date July Henley MD [address] [place] [address] PCP - General Family Medicine 03/30/13 documented as of this encounter
--- OUTSIDE RECORDS SUMMARY | 2024-11-15 13:19 | XMS_ITS | Encounter Summary ---
Author Organization [facility] Address [address] [place] [address] Care Team Providers Care Central Sterile Supply Technician Name Role Phone Agapito Garima Serina BRANNON Unavailable + Abbie Jeffery MD Unavailable [phone] Pcp, No Primary Care Provider UnavailGaviota Post MD Unavailable [phone] Pcp, No Primary Care Provider Unavailabl Nuno Hernandez MD Unavailable Unavailable System, Provider Not In Primary Care Provider Un available Martita De La O MD Unavailable [phone] Tamiko Kent APRN Unavailable [phone] Pcp, No Primary Care Provider UnavailTommy Valladares MD Unavailable [phone] July Henley MD Primary Care Provider [phone] Encounter Details Date Type Department Care Team (Late st Contact Info) Description 12/16/2016 Scanned Document [facility] Neurology Suresh [address] [facility] [address] [place] [address] Tommy Christianson MD [address] [facility] [address] [place] [address] Social History Tobacco Use Types Packs/Day Years [...] on filedocumented in this encounter Care Teams Central Sterile Supply Technician Relationship Specialty Start Date End Date Pcp, No PCP - General General Medicine 12/01/16 11/04/17 Pcp, No PCP - General General Medicine 11/05/17 11/03/18 System, Provider Not In PCP - General 11/04/18 01/08/21 Tamiko Kent APRN [address] [place] [address] PCP - MSSP Attributed 07/13/19 0 Pcp, No PCP - General General Medicine 06/13/21 03/04/22 July Henley MD [address] [place] [address] PCP - General Internal Medicine 03/05/22 Garima Altman DO Consulting Provider Rheumatology 12/01/16 03/18/17 Abbie Jeffery MD Consulting Provider Physical Medicine and Rehabilitation 12/01/16 04/03/19 Gaviota Monsivais MD Consulting Provider Rheumatology 03/19/17 Nuno Ramesh MD Endocrinology 05/10/18 Martita De La O MD Consulting Provider Internal Medicine 04/04/19 Tommy Christianson MD [address] [place] [address] Physician Neurology 06/13/21 Dr. Aura Henley [address] [place] [address] Primary Care Provider Internal Medicine 01/09/21 documented as of this encounter
--- OUTSIDE RECORDS SUMMARY | 2024-11-15 13:19 | XMS_ITS | Encounter Summary ---
Author Organization [facility] Address [address] [place] [address] Care Team Providers Care Lug Loader Name Role Phone Gaviota Monsivais MD Unavailable [phone] Nuno Ramesh MD Unavailable Unavailable Martita De La O MD Unavailable [phone] Tommy Christianson MD Unavailable July Henley MD Primary Care Provider [phone] Encounter Details Date Type Department Care Team (Late st Contact Info) Description 06/05/2023 Scanned Document [facility] Neurosurgery [address] [phone] Social History Tobacco Use Types Packs/Day Years [...] on filedocumented in this encounter Care Teams Lug Loader Relationship Specialty Start Date End Date July Henley MD [address] [place] [address] PCP - General Internal Medicine 03/05/22 Gaviota Monsivais MD Consulting Provider Rheumatology 03/19/17 Nuno Ramesh MD Endocrinology 05/10/18 Martita De La O MD Consulting Provider Internal Medicine 04/04/19 Tommy Christianson MD [address] [place] [address] Physician Neurology 06/13/21 Dr. Aura Henley [address] [place] [address] Primary Care Provider Internal Medicine 01/09/21 documented as of this encounter
--- OUTSIDE RECORDS SUMMARY | 2024-11-15 13:19 | XMS_ITS | Encounter Summary ---
Author Organization [facility] Address [address] [place] [address] Care Team Providers Care Telephone Order Dispatcher Name Role Phone Gaviota Monsivais MD Unavailable [phone] Nuno Ramesh MD Unavailable Unavailable Martita De La O MD Unavailable [phone] Pcp, No Primary Care Provider UnavailTommy Valladares MD Unavailable July Henley MD Primary Care Provider Encounter Details Date Type Department Care Team (Late st Contact Info) Description 06/20/2021 Scanned Document [facility] Dermatology [place] [address] [place] [phone] Peri Saleh MD [address] [address] Social History Tobacco Use Types Packs/Day Years [...] have Coronavirus / COVID-19? No / Unsure 06/19/2021 2:08 PM EST documented as of this encounter Plan of Treatment Not on file documented as of this encounter Visit Diagnoses Not on filedocumented in this encounter Care Teams Telephone Order Dispatcher Relationship Specialty Start Date End Date Pcp, No PCP - General General Medicine 06/13/21 03/04/22 July Henley MD [address] [place] [address] [id number] PCP - General Internal Medicine 03/05/22 Gaviota Monsivais MD Consulting Provider Rheumatology 03/19/17 Nuno Ramesh MD Endocrinology 05/10/18 Martita De La O MD Consulting Provider Internal Medicine 04/04/19 Tommy Christianson MD [address] [place] [address] Physician Neurology 06/13/21 Dr. Aura Henley [address] [place] [address] Primary Care Provider Internal Medicine 01/09/21 documented as of this encounter
--- OUTSIDE RECORDS SUMMARY | 2024-11-15 13:19 | XMS_ITS | Encounter Summary ---
Author Organization [facility] Address [address] [place] [address] Care Team Providers Care Graphic Design Professor Name Role Phone Abbie Jeffery MD Unavailable Gaviota Monsivais MD Unavailable [phone] Pcp, No Primary Care Provider UnavailNuno García MD Unavailable Unavailable System, Provider Not In Primary Care Provider Un available Martita De La O MD Unavailable [phone] Tamiko Kent APRN Unavailable [phone] Pcp, No Primary Care Provider UnavailTommy Valladares MD Unavailable July Henley MD Primary Care Provider Encounter Details Date Type Department Care Team (Late st Contact Info) Description 05/10/2018 Scanned Document [facility] [place] [address] Lyle Pennington APRN [address] [place] [address] Social History Tobacco Use Types Packs/Day Years [...] on filedocumented in this encounter Care Teams Graphic Design Professor Relationship Specialty Start Date End Date Pcp, No PCP - General General Medicine 11/05/17 11/03/18 System, Provider Not In PCP - General 11/04/18 01/08/21 Tamiko Kent APRN [address] [place] [address] PCP - MSSP Attributed 07/13/19 0 Pcp, No PCP - General General Medicine 06/13/21 03/04/22 July Henley MD [address] [place] [address] PCP - General Internal Medicine 03/05/22 Abbie Jeffery MD Consulting Provider Physical Medicine and Rehabilitation 12/01/16 04/03/19 Gaviota Monsivais MD Consulting Provider Rheumatology 03/19/17 Nuno Ramesh MD Endocrinology 05/10/18 Martita De La O MD Consulting Provider Internal Medicine 04/04/19 Tommy Christianson MD [address] [place] [address] Physician Neurology 06/13/21 Dr. Aura Henley [address] [place] [address] Primary Care Provider Internal Medicine 01/09/21 documented as of this encounter
--- OUTSIDE RECORDS SUMMARY | 2024-11-15 13:20 | XMS_ITS | Encounter Summary ---
Author Organization [facility] Address [address] [place] [address] Care Team Providers Care In Service Educator Name Role Phone Abbie Jeffery MD Unavailable Gaviota Monsivais MD Unavailable [phone] Nuno Ramesh MD Unavailable Unavailable System, Provider Not In Primary Care Provider Un available Martita De La O MD Unavailable [phone] Tamiko Kent APRN Unavailable Pcp, No Primary Care Provider Unavailabl e Tommy Christianson MD Unavailable July Henley MD Primary Care Provider Reason for Visit * Reason Comments Medication Refill Encounter Details Date Type Department Care Team (Late st Contact Info) Description 03/30/2019 Refill [facility] [place] [address] Tommy Christianson MD [address] [place] [address] Muscle spasms of both lower extremities Social [...] extremities documented in this encounter Care Teams In Service Educator Relationship Specialty Start Date End Date System, Provider Not In PCP - General 11/04/18 01/08/21 Tamiko Kent APRN [address] [place] [address] PCP - MSSP Attributed 07/13/19 0 Pcp, No PCP - General General Medicine 06/13/21 03/04/22 July Henley MD [address] [place] [address] PCP - General Internal Medicine 03/05/22 Abbie Jeffery MD Consulting Provider Physical Medicine and Rehabilitation 12/01/16 04/03/19 Gaviota Monsivais MD Consulting Provider Rheumatology 03/19/17 Nuno Ramesh MD Endocrinology 05/10/18 Martita De La O MD Consulting Provider Internal Medicine 04/04/19 Tommy Christianson MD [address] [place] [address] Physician Neurology 06/13/21 Dr. Aura Henley [address] [place] [address] Primary Care Provider Internal Medicine 01/09/21 documented as of this encounter
--- OUTSIDE RECORDS SUMMARY | 2024-11-15 13:20 | XMS_ITS | Encounter Summary ---
Author Organization [facility] Address [address] [place] [address] Care Team Providers Care Insurance Case Manager Name Role Phone Abbie Jeffery MD Unavailable [phone] Gaviota Monsivais MD Unavailable [phone] Nuno Ramesh MD Unavailable Unavailable System, Provider Not In Primary Care Provider Un available Martita De La O MD Unavailable [phone] Tamiko Kent APRN Unavailable Pcp, No Primary Care Provider Unavailsandra e Tommy Christianson MD Unavailable July Henley MD Primary Care Provider Encounter Details Date Type Department Care Team (Late st Contact Info) Description 11/05/2018 Telephone [facility] Urologic Surgery [place] [address] [place] [address] Morgan Morales MD [address] [id number] Social History Tobacco Use Types Packs/Day Years [...] PM EDT documented as of this encounter Miscellaneous Notes * Telephone Encounter - Mary Carmen Hammonds - 11/05/2018 12:53 PM EDT Patient called and stated that she was told to inform you that Dr. Hughes prescribed her a different medication that is called Carduraxl 4mg. She can be reached @ [phone] documented in this encounter Plan of Treatment Not on file documented as of this encounter Visit Diagnoses Not on filedocumented in this encounter Care Teams Insurance Case Manager Relationship Specialty Start Date End Date System, Provider Not In PCP - General 11/04/18 01/08/21 Tamiko Kent, SPECIAL INVESTIGATION UNIT INVESTIGATOR [address] [place] [address] PCP - MSSP Attributed 07/13/19 0 Pcp, No PCP - General General Medicine 06/13/21 03/04/22 July Henley MD [address] [place] [address] PCP - General Internal Medicine 03/05/22 Abbie Jeffery MD Consulting Provider Physical Medicine and Rehabilitation 12/01/16 04/03/19 Gaviota Monsivais MD Consulting Provider Rheumatology 03/19/17 Nuno Ramesh MD Endocrinology 05/10/18 Martita De La O MD Consulting Provider Internal Medicine 04/04/19 Tommy Christianson MD [address] [place] [address] Physician Neurology 06/13/21 Dr. Aura Henley [address] [place] [address] Primary Care Provider Internal Medicine 01/09/21 documented as of this encounter
--- OUTSIDE RECORDS SUMMARY | 2024-11-15 13:20 | XMS_ITS | Encounter Summary ---
Author Organization [facility] Address [address] [place] [address] Care Team Providers Care Candy Starch Mold Printer Name Role Phone Gaviota Monsivais MD Unavailable [phone] Nuno Ramesh MD Unavailable Unavailable Martita De La O MD Unavailable [phone] Tommy Christianson MD Unavailable July Henley MD Primary Care Provider [phone] Encounter Details Date Type Department Care Team (Late st Contact Info) Description 07/23/2022 Scanned Document [facility] Neurosurgery [address] [phone] Social History Tobacco Use Types Packs/Day Years [...] suspected to have Coronavirus/COVID-19? No / Unsure 07/17/2022 1:34 PM EST documented as of this encounter Plan of Treatment Not on file documented as of this encounter Visit Diagnoses Not on filedocumented in this encounter Care Teams Candy Starch Mold Printer Relationship Specialty Start Date End Date July Henley MD [address] [place] [address] [phone] PCP - General Internal Medicine 03/05/22 Gaviota Monsivais MD Consulting Provider Rheumatology 03/19/17 Nuno Ramesh MD [facility] 05/10/18 Martita De La O MD Consulting Provider Internal Medicine 04/04/19 Tommy Christianson MD [address] [place] [address] Physician Neurology 06/13/21 Dr. Aura Henley [address] [place] [address] Primary Care Provider Internal Medicine 01/09/21 documented as of this encounter
--- OUTSIDE RECORDS SUMMARY | 2024-11-15 13:20 | XMS_ITS | Encounter Summary ---
Author Organization [facility] Address [address] [place] [address] Care Team Providers Care Guest Relations Representative Name Role Phone Gaviota Monsivais MD Unavailable [phone] Nuno Ramesh MD Unavailable Unavailable System, Provider Not In Primary Care Provider Un available Martita De La O MD Unavailable [phone] Tamiko Kent APRN Unavailable [phone] Pcp, No Primary Care Provider Unavailabl e Tommy Christianson MD Unavailable [phone] July Henley MD Primary Care Provider Encounter Details Date Type Department Care Team (Late st Contact Info) Description 09/26/2019 Scanned Document [facility] Neurology [address] [place] [phone] Tamiko Kent, MASTER TAX ADVISOR [address] [place] [address] Social History Tobacco Use Types Packs/Day Years [...] on filedocumented in this encounter Care Teams Guest Relations Representative Relationship Specialty Start Date End Date System, Provider Not In PCP - General 11/04/18 01/08/21 Tamiko Kent APRN [address] [place] [address] PCP - MSSP Attributed 07/13/19 0 Pcp, No PCP - General General Medicine 06/13/21 03/04/22 July Henley MD [address] [place] [address] PCP - General Internal Medicine 03/05/22 Gaviota Monsivais MD Consulting Provider Rheumatology 03/19/17 Nuno Ramesh MD Endocrinology 05/10/18 Martita De La O MD Consulting Provider Internal Medicine 04/04/19 Tommy Christianson MD [address] [place] [address] Physician Neurology 06/13/21 Dr. Aura Henley [address] [place] [address] Primary Care Provider Internal Medicine 01/09/21 documented as of this encounter
--- OUTSIDE RECORDS SUMMARY | 2024-11-15 13:20 | XMS_ITS | Encounter Summary ---
Author Organization [facility] Address [address] [place] [address] Care Team Providers Care Pick Out Hand Name Role Phone Abbie Jeffery MD Unavailable Gaviota Monsivais MD Unavailable [phone] Pcp, No Primary Care Provider UnavailNuno García MD Unavailable Unavailable System, Provider Not In Primary Care Provider Un available Martita De La O MD Unavailable [phone] Tamiko Kent APRN Unavailable [phone] Pcp, No Primary Care Provider UnavailTommy Valladares MD Unavailable [phone] July Henley MD Primary Care Provider [phone] Encounter Details Date Type Department Care Team (Late st Contact Info) Description 10/11/2018 Scanned Document [facility] Heart & Vascular [place] [address] [place] [address] Jem Martinez MD [address] [address] Social History Tobacco Use Types Packs/Day Years [...] on filedocumented in this encounter Care Teams Pick Out Hand Relationship Specialty Start Date End Date Pcp, No PCP - General General Medicine 11/05/17 11/03/18 System, Provider Not In PCP - General 11/04/18 01/08/21 Tamiko Kent APRN [address] [place] [address] PCP - MSSP Attributed 07/13/19 0 Pcp, No PCP - General General Medicine 06/13/21 03/04/22 July Henley MD [address] [place] [address] PCP - General Internal Medicine 03/05/22 Abbie Jeffery MD Consulting Provider Physical Medicine and Rehabilitation 12/01/16 04/03/19 Gaviota Monsivais MD Consulting Provider Rheumatology 03/19/17 Nuno Ramesh MD Endocrinology 05/10/18 Martita De La O MD Consulting Provider Internal Medicine 04/04/19 Tommy Christianson MD [address] [place] [address] Physician Neurology 06/13/21 Dr. Aura Henley [address] [place] [address] Primary Care Provider Internal Medicine 01/09/21 documented as of this encounter
--- OUTSIDE RECORDS SUMMARY | 2024-11-15 13:20 | XMS_ITS | Encounter Summary ---
Author Organization [facility] Address [address] [place] [address] Care Team Providers Care Test Tube Maker Name Role Phone Gaviota Monsivais MD Unavailable [phone] Nuno Ramesh MD Unavailable Unavailable Martita De La O MD Unavailable [phone] Tommy Christianson MD Unavailable July Henley MD Primary Care Provider [phone] Encounter Details Date Type Department Care Team (Late st Contact Info) Description 07/22/2022 Scanned Document [facility] Neurosurgery [address] [phone] Social History Tobacco Use Types Packs/Day Years [...] on filedocumented in this encounter Care Teams Test Tube Maker Relationship Specialty Start Date End Date uJly Henley MD [address] [place] [address] [phone] PCP - General Internal Medicine 03/05/22 Gaviota Monsivais MD Consulting Provider Rheumatology 03/19/17 Nuno Ramesh MD [facility] 05/10/18 Martita De La O MD Consulting Provider Internal Medicine 04/04/19 Tommy Christianson MD [address] [place] [address] Physician Neurology 06/13/21 Dr. Aura Henley [address] [place] [address] Primary Care Provider Internal Medicine 01/09/21 documented as of this encounter
--- OUTSIDE RECORDS SUMMARY | 2024-11-15 13:20 | XMS_ITS | Encounter Summary ---
Author Organization [facility] Address [address] [place] [address] Care Team Providers Care Mission Coordinator Name Role Phone Gaviota Monsivais MD Unavailable [phone] Nuno Ramesh MD Unavailable Unavailable System, Provider Not In Primary Care Provider Un available Martita De La O MD Unavailable [phone] Tamiko Kent APRN Unavailable [phone] Pcp, No Primary Care Provider Unavailabl e Tommy Christianson MD Unavailable July Henley MD Primary Care Provider Encounter Details Date Type Department Care Team (Late st Contact Info) Description 04/18/[address] [facility] Neurology [address] [phone] Tommy Christianson MD [address] [place] [address] Social History Tobacco Use Types Packs/Day Years [...] on filedocumented in this encounter Care Teams Mission Coordinator Relationship Specialty Start Date End Date System, Provider Not In PCP - General 11/04/18 01/08/21 Tamiko Kent APRN [address] [place] [address] PCP - MSSP Attributed 07/13/19 0 Pcp, No PCP - General General Medicine 06/13/21 03/04/22 July Henley MD [address] [place] [address] PCP - General Internal Medicine 03/05/22 Gaviota Monsivais MD Consulting Provider Rheumatology 03/19/17 Nuno Ramesh MD Endocrinology 05/10/18 Martita De La O MD Consulting Provider Internal Medicine 04/04/19 Tommy Christianson MD [address] [place] [address] Physician Neurology 06/13/21 Dr. Aura Henley [address] [place] [address] Primary Care Provider Internal Medicine 01/09/21 documented as of this encounter
--- OUTSIDE RECORDS SUMMARY | 2024-11-15 13:20 | XMS_ITS | Encounter Summary ---
Author Organization [facility] Address [address] [place] [address] Care Team Providers Care White Washer Name Role Phone Gaviota Monsivais MD Unavailable [phone] Nuno Ramesh MD Unavailable Unavailable System, Provider Not In Primary Care Provider Un available Martita De La O MD Unavailable Tamiko Kent APRN Unavailable [phone] Pcp, No Primary Care Provider Unavailabl e Tommy Christianson MD Unavailable [phone] July Henley MD Primary Care Provider [phone] Reason for Visit * Reason Comments Medication Refill Encounter Details Date Type Department Care Team (Late st Contact Info) Description 05/05/2019 Refill [facility] [place] [address] Tommy Christianson MD [address] [place] [address] [place] [address] Muscle spasms of both lower extremities Social [...] extremities documented in this encounter Care Teams White Washer Relationship Specialty Start Date End Date System, Provider Not In PCP - General 11/04/18 01/08/21 Tamiko Kent APRN [address] [place] [address] PCP - MSSP Attributed 07/13/19 0 Pcp, No PCP - General General Medicine 06/13/21 03/04/22 July Henley MD [address] [place] [address] PCP - General Internal Medicine 03/05/22 Gaviota Monsivais MD Consulting Provider Rheumatology 03/19/17 Nuno Ramesh MD Endocrinology 05/10/18 Martita De La O MD Consulting Provider Internal Medicine 04/04/19 Tommy Christianson MD [address] [place] [address] Physician Neurology 06/13/21 Dr. Aura Henley [address] [place] [address] Primary Care Provider Internal Medicine 01/09/21 documented as of this encounter
--- OUTSIDE RECORDS SUMMARY | 2024-11-15 13:20 | XMS_ITS | Encounter Summary ---
Author Organization [facility] Address [address] [place] [address] Care Team Providers Care Parts Designer Name Role Phone Gaviota Monsivais MD Unavailable [phone] Nuno Ramesh MD Unavailable Unavailable System, Provider Not In Primary Care Provider Un available Martita De La O MD Unavailable Tamiko Kent APRN Unavailable [phone] Pcp, No Primary Care Provider Unavailabl e Tommy Christianson MD Unavailable July Henley MD Primary Care Provider Reason for Visit * Reason Comments Medication Refill Encounter Details Date Type Department Care Team (Late st Contact Info) Description 05/05/2019 Refill [facility] [place] [address] Tommy Christianson MD [address] [place] [address] [place] [address] Muscle spasms of both lower extremities Social [...] extremities documented in this encounter Care Teams Parts Designer Relationship Specialty Start Date End Date System, Provider Not In PCP - General 11/04/18 01/08/21 Tamiko Kent APRN [address] [place] [address] PCP - MSSP Attributed 07/13/19 0 Pcp, No PCP - General General Medicine 06/13/21 03/04/22 July Henley MD [address] [place] [address] PCP - General Internal Medicine 03/05/22 Gaviota Monsivais MD Consulting Provider Rheumatology 03/19/17 Nuno Ramesh MD Endocrinology 05/10/18 Martita De La O MD Consulting Provider Internal Medicine 04/04/19 Tommy Christianson MD [address] [place] [address] Physician Neurology 06/13/21 Dr. Aura Henley [address] [place] [address] Primary Care Provider Internal Medicine 01/09/21 documented as of this encounter
--- OUTSIDE RECORDS SUMMARY | 2024-11-15 13:20 | XMS_ITS | Encounter Summary ---
Author Organization [facility] Address [address] [place] [address] Care Team Providers Care Graduate Internship Name Role Phone Abbie Jeffery MD Unavailable Gaviota Monsivais MD Unavailable [phone] Pcp, No Primary Care Provider UnavailNuno García MD Unavailable Unavailable System, Provider Not In Primary Care Provider Un available Martita De La O MD Unavailable [phone] Tamiko Kent APRN Unavailable Pcp, No Primary Care Provider UnavailTommy Valladares MD Unavailable July Henley MD Primary Care Provider Reason for Visit * Reason Comments Medication Refill Encounter Details Date Type Department Care Team (Late st Contact Info) Description 11/03/2018 Refill [facility] Neurology [place] [address] [facility] [address] [place] [address] Lyle Pennington APRN [address] [place] [address] Muscle spasms of both lower extremities Social [...] extremities documented in this encounter Care Teams Graduate Internship Relationship Specialty Start Date End Date Pcp, No PCP - General General Medicine 11/05/17 11/03/18 System, Provider Not In PCP - General 11/04/18 01/08/21 Tamiko Kent, DRUG SAFETY ASSOCIATE [address] [place] [address] PCP - MSSP Attributed 07/13/19 0 Pcp, No PCP - General General Medicine 06/13/21 03/04/22 July Henley MD [address] [place] [address] PCP - General Internal Medicine 03/05/22 Abbie Jeffery MD Consulting Provider Physical Medicine and Rehabilitation 12/01/16 04/03/19 Gaviota Monsivais MD Consulting Provider Rheumatology 03/19/17 Nuno Ramesh MD Endocrinology 05/10/18 Martita De La O MD Consulting Provider Internal Medicine 04/04/19 Tommy Christianson MD [address] [place] [address] Physician Neurology 06/13/21 Dr. Aura Henley [address] [place] [address] Primary Care Provider Internal Medicine 01/09/21 documented as of this encounter
== END 2024-11-15 11:40 | disposition home or self-care (01) ==
LOC: HO.XRAY 11:39
PROVIDERS: PCP Pediatrics; Visit Provider Internal Medicine
DX: M25.551 Pain in right hip (principal)
CPT/HCPCS: 73502

== ENCOUNTER → 2024-11-15 11:42 | Outpatient (BNV) | payer MEDICARE, OTHER, SELFPAY | PROVIDERS: PCP Pediatrics; Visit Provider Radiology Diagnostic Radiology | DX: M16.11 Unilateral primary osteoarthritis, right hip (principal) | CPT/HCPCS: 73502 ==

== ENCOUNTER 2025-02-17 11:01 | Outpatient (AMB) | payer MEDICARE, OTHER, SELFPAY ==
--- OUTSIDE RECORDS SUMMARY | 2025-02-17 11:05 | XMS_ITS ---
Author Name [facility] [place] Organization Unknown History of Medication Use Medication Directions Dispensed Refills Start Date End Date [facility] amLODIPine (Norvasc) 2.5 mg tablet Take [...] Date Problem Type Date of Resolution Source Polyarticular osteoarthritis active EncounterDiagnosisAct CTTH NEMG Low back pain with left-sided sciatica active 2016-09-12 ProblemAct CTTHNEMG Lumbar facet arthropathy active 2016-08-12 ProblemAct [facility]THNEMG DDD (degenerative disc disease), lumbosacral active 2015-12-18 ProblemAct CTTHNEMG DDD (degenerative disc disease), lumbosacral active 2015-12-18 ProblemAct [facility] Paresthesia of both lower extremities active 2015-07-03 ProblemAct [facility] Murmur, cardiac active 2015-06-[address] [facility]AN Lumbago active 2015-07-03 ProblemAct [facility]_THSFR AN Bulge of lumbar disc without myelopathy active 2016-04-01 ProblemAct [facility]_THSFRA N Muscle pain active 2015-08-13 ProblemAct [facility]_THS HARMAN Lumbar radiculitis active 2016-04-01 ProblemAct CTTHNEMG Low back pain with right-sided sciatica active 2016-09-12 ProblemAct [facility]_THSF RAN Elevated aldolase level active 2015-08-13 ProblemAct [facility]_THSFRAN Irritable bowel syndrome with diarrhea active 2015-06-07 ProblemAct [facility] Arthralgia of both hands active EncounterDiagnosisAct CTTHNE MG Nonintractable migraine active 2015-06-07 ProblemAct [facility]_THSFRAN Anemia of chronic disease active EncounterDiagnosisAct CT_THS HARMAN H/O Raynaud's syndrome active EncounterDiagnosisAct CT_THS HARMAN Undifferentiated connective tissue disease (CMS/HCC) active EncounterDiagnosisAct C T_THSFRAN Bulge of lumbar disc without myelopathy active 2016-04-01 ProblemAct CTTHNEMG Fibromyalgia active EncounterDiagnosisAct CT_THSFRAN Dry eyes, bilateral active EncounterDiagnosisAc t CT_THSFRAN Lumbar stenosis with neurogenic claudication active 2023-06-02 ProblemAct [facility] Vitamin D deficiency active 2019-09-20 ProblemAct [facility] Degenerative lumbar spinal stenosis active 2023-06-17 ProblemAct [facility] Myalgia active EncounterDiagnosisAct [facility] QT prolongation active 2023-06-01 ProblemAct [facility] Adrenal adenoma, left active ProblemAct [facility] Hypertension active ProblemAct [facility] Mitral stenosis and aortic regurgitation active ProblemAct [facility] Lumbar disc herniation active 2016-04-01 ProblemAct [facility] Immunizations Vaccine Date Source Lot Number Status Influenza, Quadrivalent (FLU ARIX, AFLURIA, FLULAVAL, FLUZONE) Preservative Free IM 06/03/2023 [facility] completed Encounters Encounter Type Encounter Reason Primary Diagnosis Location Date Ambulatory Dry eye syndrome of bilateral lacrimal glands Dry eye syndrome of bilateral lacrimal glands [facility] 09/07/2024 Ambulatory Spinal stenosis, lumbar region with neurogenic claudication Spinal stenosis, lumbar region with neurogenic claudication [facility] 09/15/2023 Ambulatory Arthrodesis status Arthrodesis status [facility] 06/26/2023 Ambulatory Radiculopathy, lumba r region Radiculopathy, lumbar region [facility] 06/26/2023 Ambulatory Spinal stenosis, lumbar region with neurogenic claudication Spinal stenosis, lumbar region with neurogenic claudication [facility] 06/17/2023 Inpatient Spinal stenosis, lumbar region with neurogenic claudication Spinal stenosis, lumbar region with neurogenic claudication [facility] 06/02/2023 Ambulatory Encounter for other preprocedural examination Encounter for other preprocedural examination [facility] 06/01/2023 Ambulatory Spinal stenosis, lumbar region without neurogenic claudication Spinal stenosis, lumbar region without neurogenic claudication [facility] 05/29/2023 Ambulatory Other intervertebral disc degeneration, lumbosacral region Other intervertebral disc degeneration, lumbosacral region [facility] 01/01/2023 Ambulatory Spinal stenosis, lumbar region without neurogenic claudication [facility] 10/08/2022 Ambulatory Spinal stenosis, lumbar region without neurogenic claudication [facility] 08/08/2022 Ambulatory Lumbago with sciatica, left side Lumbago with sciatica, left side [facility] 07/17/2022 Ambulatory Rash and other nonspecific skin eruption [facility] 05/13/2022 Ambulatory [facility] 04/02/2022 Ambulatory Erythromelalgia [facility] 01/31/2022 Ambulatory Sleep disorder, unspecified [facility] 01/31/2022 Ambulatory Seborrheic derma titis, unspecified [facility] 12/18/2021 Ambulatory Rash [facility] 09/17/2021 Ambulatory Rash and other nonspecific skin eruption [facility] 06/19/2021 Ambulatory Other muscle spasm [facility] 06/13/2021 Care Team Organization Name Specialty Phone Email Start Date End Da te [facility] Stella Henley Primary Care 05/13/20222024 [facility] NO PCP Primary Care 06/13/2021 05/13/2022 [facility] STELLA HENLEY Primary Care 06/13/20212021
--- OUTSIDE RECORDS SUMMARY | 2025-02-17 11:05 | XMS_ITS | Encounter Summary ---
Author Organization [facility] Address [address] [place] [address] Care Team Providers Care Podiatry Teacher Name Role Phone Abbie Jeffery MD Unavailable Gaviota Monsivais MD Unavailable [phone] Pcp, No Primary Care Provider UnavailNuno García MD Unavailable Unavailable System, Provider Not In Primary Care Provider Un available Martita De La O MD Unavailable [phone] Tamiko Kent APRN Unavailable [phone] Pcp, No Primary Care Provider UnavailTommy Valladares MD Unavailable [phone] July Henley MD Primary Care Provider Encounter Details Date Type Department Care Team (Late st Contact Info) Description 11/05/2017 Scanned Document [facility] [place] [address] Emanuel Bowie, JOSE [address] [id number] Social History Tobacco Use Types Packs/Day Years [...] on filedocumented in this encounter Care Teams Podiatry Teacher Relationship Specialty Start Date End Date Pcp, No PCP - General General Medicine 11/05/17 11/03/18 System, Provider Not In PCP - General 11/04/18 01/08/21 Tamiko Kent APRN [address] [place] [id number] PCP - MSSP Attributed 07/13/19 0 Pcp, No PCP - General General Medicine 06/13/21 03/04/22 July Henley MD [address] [place] [address] PCP - General Internal Medicine 03/05/22 Abbie Jeffery MD Consulting Provider Physical Medicine and Rehabilitation 12/01/16 04/03/19 Gaviota Monsivais MD Consulting Provider Rheumatology 03/19/17 Nuno Ramesh MD Endocrinology 05/10/18 Martita De La O MD Consulting Provider Internal Medicine 04/04/19 Tommy Christianson MD [address] [place] [id number] Physician Neurology 06/13/21 Dr. Aura Henley [address] [place] [id number] Primary Care Provider Internal Medicine 01/09/21 documented as of this encounter
--- OUTSIDE RECORDS SUMMARY | 2025-02-17 11:05 | XMS_ITS | Clinical Summary ---
Author Organization [facility] Address [address] [place] [address] Phone Care Team Providers Care Claims Director Name Role Phone July Henley MD Primary Care Provider [phone] Allergies No known active allergies Medications aluminum chloride (DRYSOL) 20 % external solution as needed. 7 Active cholecalciferol (VITAMIN D-3) 50 mcg (2,000 unit) capsule Take 1 capsule (2,000 Units total) by mouth 2 (two) times a day. 5 Active cyclobenzaprine (FLEXERIL) 10 mg tablet Take 1 tablet (10 mg total) by mouth. 4 Active diclofenac (VOLTAREN) 1 % topical gel Apply 1 g topically 2 times daily as needed. 4 Active ibuprofen (ADVIL,MOTRIN) 800 mg tablet Take 1 tablet (800 mg total) by mouth 2 times daily as needed. 4 Active tacrolimus (PROTOPIC) 0.1 % ointment APPLY TOPICALLY 2 TIMES A DAY NEEDED 2 Active traZODone (DESYREL) 50 mg tablet Take 1 tablet (50 mg total) by mouth. Active DULoxetine (CYMBALTA) [address] capsule Take 1 capsule (60 mg total) by mouth 2 (two) times a day. 60 each 11 5 09/07/19 26 Active lidocaine (LIDODERM) 5 % patch Apply 1 patch topically 1 (one) time each day. 30 patch 3 5 09/07/19 26 Active amLODIPine (Norvasc) 2.5 mg tablet Take 1 tablet (2.5 mg total) by mouth 1 (one) time each day. 30 each 5 09/07/19 26 Active traMADoL (ULTRAM) 50 mg tabletIndications: Other intervertebral disc degeneration, lumbar region without mention of lumbar back pain or lower extremity pain,Other intervertebral disc degeneration, lumbosacral region without mention of lumbar back pain or lower extremity pain Take 1 tablet (50 mg total) by mouth every 6 (six) hours if needed for severe pain. Max Daily Amount: 200 mg 120 tablet 3 5 Active Active Problems Problem Noted Date Diagnosed Date Low back pain with right-sided sciatica 09/13/19 17 Bulge of lumbar disc without myelopathy 04/01/20 16 DDD (degenerative disc disease), lumbosacral 01/2016 Elevated aldolase level 08/13/2015 Muscle pain 08/13/2015 Lumbago 07/03/2015 Paresthesia of both lower extremities 07/03/2015 Irritable bowel syndrome with diarrhea 5 Murmur, cardiac 06/07/2015 Nonintractable migraine 06/07/2015 Surgical History Surgery Date Site/Laterality Comments BREAST BIOPSY 2000 Right PROCEDURE:BREAST BIOPSY;COMMENT:benign LUMBAR EPIDURAL INJECTION 09/08/2016 Bilateral PROCEDURE:LUMBAR EPIDURAL INJECTION;COMMENT:Procedure: INJECTION ANESTHETIC AGENT LUMBAR; Surgeon: Abbie Jeffery MD; Location: [facility]; Service: Rehab Medicine; Laterality: Bilateral; LUMBAR EPIDURAL INJECTION 05/05/2016 N/A PROCEDURE:LUMBAR EPIDURAL INJECTION;COMMENT:Procedure: INJECTION STEROID LUMBAR EPIDURAL-caudal; Surgeon: Abbie Jeffery MD; Location: [facility]; Service: Rehab Medicine; Laterality: N/A; Medical [...] 10:00 AM EDT Office Visit Rheumatology - [place] [address] [place] [phone] Gaviota Monsivais MD [address] [place] [address] [place] [phone] Health Maintenance Due Date Last Done Comments COVID-19 Vaccine (#1) 1970 DTaP,Tdap,and Td Vaccines (1 - Tdap) 1984 Zoster Vaccines (1 of 2) 1984 Hepatitis B Vaccines (2 of 3 - 19+ 3-dose series) 03/15/2015 02/15/2015 Pneumococcal Vaccine: 50+ Years (1 of 1 - PCV) 10/03/2015 HIV Screening 06/14/2022 Lung Cancer Screening (Low Dose CT) 06/14/2022 Medicare Annual Wellness Visit 06/14/2022 Social Influencers of Health Screening 06/14/2022 Breast Cancer Screening 05/07/2024 05/07/2022 Depression Screening 07/13/2024 Influenza Vaccine (#1) 2025 3, 03/31/2012 Hypertension/CHF/CAD Annual BMP Blood Test 09/21/2025 [...] Procedure Name Priority Date/Time Associated Diagnosis Comments COMPREHENSIVE METABOLIC PANEL Routine 09/21/2024 10:19 AM EDT Dry eyes, bilateral HM PAP SMEAR Routine 08/20/2023 LIPID PANEL Routine 03/08/2020 HEPATITIS C SCREENING Routine 06/05/2015 from Last 3 Months or Most Recently Relevant to Health Maintenance Results * Comprehensive metabolic panel (09/21/2024 10:19 AM EDT) Glucose 96 65 - 99 mg/dL [facility] Comment: Fasting reference interval Urea Nitrogen (BUN) 15 7 - 25 mg/dL [facility] Creatinine 0.67 0.50 - 1.03 mg/dL [facility] eGFR 101 > OR = 60 mL/min/1 .73m2 [facility] BUN/Creatinine Ratio SEE NOTE: 6 - 22 (calc) [facility] Comment: Not Reported: BUN and Creatinine are within reference range. Sodium 138 135 - 146 mmol/L [facility] Potassium 4.4 3.5 - 5.3 mmol/L [facility] Chloride 103 98 - 110 mmol/L [facility] Carbon Dioxide 27 20 - 32 mmol/L [facility] Calcium 9.7 8.6 - 10.4 mg/dL [facility] Total Protein 6.7 6.1 - 8.1 g/dL [facility] Albumin 4.6 3.6 - 5.1 g/dL [facility] Globulin 2.1 1.9 - 3.7 g/dL (calc) [facility] Albumin/Globulin Ratio 2.2 1.0 - 2.5 (calc) [facility] Bilirubin Total 0.4 0.2 - 1.2 mg/dL [facility] Alkaline Phosphatase 59 37 - 153 U/L [facility] Aspartate aminotransferase (AST) 18 10 - 35 U/L [facility] Alanine Aminotransferase (ALT) 17 6 - 29 U/L [facility] Blood Venous blood specimen / Unknown 09/21/2024 10:19 AM EDT 09/21/2024 10:20 AM EDT Narrative [facility] ([facility] - 09/22/2024 3:56 PM EDT FASTING:YES FASTING: YES us Gaviota Monsivais MD LAB BLOOD ORDERABLES Final Res ult [facility] ([facility] [address] [place] [phone] * Pap Smear (08/20/2023) Pap smear no interpreta tion,abstr acted Historical Provider HEALTH MAINTENANCE Final Result * Lipid panel (03/08/2020) Pathologist [facility] LDL/HDL Ratio 0 Comment:no interpretation Triglycerides 0 mg/dL Comment:no interpretation Cholesterol 0 mg/dL Comment:no interpretation HDL 0 mg/dL Comment:no interpretation LDL Cholesterol 0 mg/dL Comment:no interpretation Blood Venous blood specimen / Unknown Historical Provider LAB BLOOD ORDERABLES Fang l Result * Hepatitis C Screening (06/05/2015) Pathologist [facility] Hepatitis C Screening abstracted [facility] Provider HEALTH MAINTENANCE Final Result from Last 3 Months or Most Recently Relevant to Health Maintenance Insurance MEDICARE Care Teams Claims Director Relationship Specialty Start Date End Date July Henley MD [address] [facility] [place] [phone] PCP - General Pediatrics 08/20/15
--- OUTSIDE RECORDS SUMMARY | 2025-02-17 11:05 | XMS_ITS | Encounter Summary ---
Author Organization [email or web address] Address [address] [facility] [address] [place] [address] Care Team Providers Care Promotional Model Name Role Phone July Henley MD Primary Care Provider [phone] Reason for Visit * Reason Comments Med Refill Encounter Details Date Type Department Care Team ([facility] Contact Info) Description 05/10/2023 Refill [facility] [address] [place], [place] [phone] July Henley MD [address] [place], [place] [phone] Social History Tobacco Use Types Packs/Day Years [...] on filedocumented in this encounter Care Teams Promotional Model Relationship Specialty Start Date End Date July Henley MD [address] [place] [id number] PCP - General Family Medicine 03/30/13 documented as of this encounter
--- OUTSIDE RECORDS SUMMARY | 2025-02-17 11:05 | XMS_ITS | Clinical Summary ---
Author Organization [facility] Address [address] [place] [address] Care Team Providers Care Auto Wash Buffer Name Role Phone July Henley MD Primary Care Provider Allergies No known active allergies Medications Medication [...] 64 02/05/2024 8:05 AM EDT Temperature 36.5 C (97.7 F) 06/17/2018 8:57 AM EST Respiratory Rate 18 10/11/2021 9:32 AM EDT [...] Cancer Screening (Mammogram) 10/03/2015 Influenza Vaccine (#1) 2025 Hepatitis C Screening Completed 06/05/2015 RSV Ped < 20 months Aged Out No longe r eligible based on patient's age to complete this topic Care Teams Auto Wash Buffer Relationship Specialty Start Date End Date July Henley MD [address] [facility] [place] [address] PCP - General Pediatrics 08/20/15
--- NOTE | 2025-02-17 11:08 | A.OFFVIS_ITS ---
Vital Signs 02/17/25 11:10 Height 5 ft 3 in Weight 172 lb BMI 30.5 BP 179/76 H Blood Pressure Location Lt brachial Position Sitting Respiration 16 Pulse 69 Pulse Source Pulse Oximeter Pulse Oximetry (%) 97 Oxygen Delivery Method Room Air Intake Visit Reasons: Arthritis of Right Hip Scientific Linguist Required: No Allergies No Known Allergies Allergy (Verified 02/17/25 11:12) Medication List - Last Reconciled 02/17/25 by Tiffanie Ellington LPN cholecalciferol (vitamin D3) 50 mcg PO BID duloxetine 60 mg PO BID ibuprofen 800 mg PO Q8H PRN lidocaine 5% 1 patch topical DAILY tramadol 50 mg PO Q6H PRN trazodone 50 mg PO BEDTIME PRN HPI HPI Arthritis of Right Hip: Details: History of Present Illness The patient is a 59-year-old female presenting with chronic pain and rheumatoid arthritis. She reports experiencing pain in multiple areas including elbows, legs, lower back, hands, and feet for over ten years. The pain is described as burning and stabbing, with an intensity greater than 7 out of 10, significantly affecting her sleep and daily activities. The patient has a history of back surgery performed at [facility] by Dr. Hugo, though she struggles to recall the exact timing of the procedure. She has not had recent imaging of her back but did have imaging of her hips. She has been using tramadol and ibuprofen for pain management but has not been on any specific disease-modifying agents for rheumatoid arthritis. The patient describes her hip pain as deep and persistent, exacerbated by certain positions, particularly when lying on the affected side. She reports that the pain feels as though she is lying on bone, which is consistent with inflammation of the greater trochanter area. Pain Description - Onset: Pain has been present for over ten years. - Quality: Described as burning and stabbing. - Intensity: Greater than 7 out of 10. - Location: Elbows, legs, lower back, hands, feet, and right hip. - Exacerbating factors: Certain positions, particularly lying on the affected side. - Impact: Affects sleep and daily activities. Physical Exam - Musculoskeletal: Palpation of the right hip elicited deep pain, particularly in the greater trochanter area. Pain Management - Affect: Pain significantly impacts sleep and daily activities. - Analgesia: Currently using tramadol and ibuprofen. - Adverse Effects: None reported. - Activities of Daily Living: Pain interferes with sleep and daily activities. - Aberrant Drug Related Behaviors: None reported. [facility] Medical History (Updated 02/28/25 @ 13:40 by He Faulkner MD) Arthritis of right hip Primary insomnia Primary hypertension Chronic breathlessness HTN (hypertension) Heart burn Raynaud disease Lumbar spondylolysis Incisional hernia Surgical History (System 09/18/21 @ 14:19 by Emily Merritt) History of hernia repair History of surgery for malignant neoplasm Family History Mother Lung cancer Maternal Aunt Breast cancer Maternal Uncle Breast cancer Maternal Grandfather Pancreatic cancer Social History (System 09/18/21 @ 14:19 by Emily Merritt) Alcohol intake: current Alcohol intake frequency: holidays/special occasions only Patient Tobacco Use Status: Never used Tobacco Physical Exam Vital Signs: Last Vital Signs Pulse 69 02/17/25 11:10 Resp 16 02/17/25 11:10 BP 179/76 H 02/17/25 11:10 Pulse Ox 97 02/17/25 11:10 Oxygen Delivery Method Room Air 02/17/25 11:10 BMI result Body Mass Index 30.5 Assessment & Plan Assessment & Plan (1) Postlaminectomy syndrome: Code(s): M96.1 - Postlaminectomy syndrome, not elsewhere classified Category: Medical (2) Lumbar spondylosis: Code(s): M47.816 - Spondylosis without myelopathy or radiculopathy, lumbar region Category: Medical (3) Greater trochanteric pain syndrome: Code(s): M25.559 - Pain in unspecified hip Category: Medical Plan Plan - Schedule a right greater trochanteric bursa injection under ultrasound guidance upon return from [place]. - Initiate physical therapy for low back pain secondary to post-laminectomy syndrome. - Follow-up appointment to be scheduled after the patient's return from [place]. Patient was informed and verbally consented to the use of an ambient scribe for clinic note documentation during this visit. Discussion Notes I discussed with the patient the plan to perform a right greater trochanteric bursa injection under ultrasound guidance to alleviate hip pain. We also talked about starting physical therapy to address low back pain related to post- laminectomy syndrome. The patient will return for follow-up after her trip to [place], and we will reassess her condition at that time. Patient Instructions - Schedule and attend physical therapy sessions for back pain. - Return for a follow-up appointment after your trip to [place]. - Prepare for a right hip injection upon return. Orders: Orders PT Evaluation and Treatment 02/17/25 M96.1 - Postlaminectomy syndrome, not elsewhere classified, M47.816 - Spondylosis without myelopathy or radiculopathy, lumbar region Coding Level of Care Code New Pt Level 4 (16955) Diagnoses Postlaminectomy syndrome M96.1 Lumbar spondylosis M47.816 Greater trochanteric pain syndrome M25.559
[2025-02-17 11:10] VITALS: BP 179/76; PULSE 69; RESP 16; O2SAT 97; BMI 30.5
== END 2025-02-17 11:38 | disposition home or self-care (01) ==
LOC: HO.PMC 11:02
PROVIDERS: PCP Pediatrics; Referring Provider Pediatrics; Visit Provider Internal Medicine
DX: M96.1 Postlaminectomy syndrome, not elsewhere classified (principal); M47.816 Spondylosis without myelopathy or radiculopathy, lumbar region; M25.559 Pain in unspecified hip
CPT/HCPCS: 99204

== ENCOUNTER → 2025-02-17 11:01 | Outpatient (BNVA) | payer MEDICARE, OTHER, SELFPAY | PROVIDERS: PCP Pediatrics; Referring Provider Pediatrics; Visit Provider Internal Medicine | DX: M96.1 Postlaminectomy syndrome, not elsewhere classified (principal); M47.816 Spondylosis without myelopathy or radiculopathy, lumbar region; M25.559 Pain in unspecified hip | CPT/HCPCS: 99202 ==